=== PATIENT | female | born 1955 | race African-American/Black ===

== ENCOUNTER 2019-09-14 16:09 | Inpatient (IN) | payer MEDICARE ==
[~2019-09-14] VITALS: Ht 162.6 cm; Wt 69.9 kg
[2019-09-14] MEDS ORDERED: IV NORMAL SALINE 1000ML BAG 1,000 ML IV SCH ×2 (16:34→17:30)
[2019-09-14] MEDS ORDERED: ACETAMINOPHEN 650 MG SUPP.RECT. PR ONE (16:45)
[2019-09-14 16:48] LABS: BILIRUBIN,URINE NEGATIVE (NEG); CLARITY,URINE CLEAR; COLOR,URINE YELLOW; NITRITE,URINE POSITIVE (NEG); PH,URINE 5.5; PROTEIN,URINE 100 mg/dL (NEG-TRACE); UROBILINOGEN,URINE 0.2 mg/dL (0.2 mg/dL)
[2019-09-14 17:02] LABS: INFLUENZA A PATIENT NEGATIVE (NEGATIVE); INFLUENZA B PATIENT NEGATIVE (NEGATIVE)
[2019-09-14 17:03] LABS: BASO # 0.1 x10^3/uL (0.0-0.2); BASO % 1 % (0-3); EOS % 0 % (0-3); HEMATOCRIT 39.6 % (36.0-47.0); LYMPH # 2.1 x10^3/uL (1.0-4.8); LYMPH % 12 % (24-48); MEAN CORPUSCULAR HEMOGLOBIN 30 pg (25-35); MEAN CORPUSCULAR HGB CONC 33 g/dL (31-37); MEAN CORPUSCULAR VOLUME 92 fL (79-100); MONO # 1.1 x10^3/uL (0.0-1.1); MONO % 6 % (0-9); NEUT % 81 % (31-73); PLATELET COUNT 301 x10^3/uL (140-400); RED CELL DISTRIBUTION WIDTH 13.8 % (11.5-14.5); WHITE BLOOD COUNT 17.2 x10^3/uL (4.0-11.0)
[2019-09-14 17:07] LABS: PROTHROMBIN TIME PATIENT 14.9 SEC (11.7-14.0)
[2019-09-14 17:08] LABS: CREATININE 1.1 mg/dL (0.6-1.0); GFR 50.2; POTASSIUM 3.7 mmol/L (3.5-5.1)
[2019-09-14 17:11] LABS: BACTERIA,URINE MANY /HPF (0-FEW); RBC,URINE 0 /HPF (0-2); SQUAMOUS EPITHELIAL CELL,UR MOD /LPF
--- NOTE | 2019-09-14 17:13 | RAD ---
EXAM: AP View of the chest DATE: 09/14/2019 4:54 PM INDICATION: altered level of consciousness COMPARISON: No Prior FINDINGS: The heart is not enlarged. Mediastinal and hilar contours are normal. No focal parenchymal airspace opacity. Mild emphysematous changes are seen. No pleural effusion or pneumothorax. Cervical spine fusion hardware is partially profiled. IMPRESSION: 1. No radiographic evidence for acute cardiopulmonary process. Electronically signed by: Bertin Young MD (09/14/2019 5:10 PM) [id number]
[2019-09-14 17:15] LABS: ALBUMIN 4.1 g/dL (3.4-5.0); ALBUMIN/GLOBULIN RATIO 0.8 (1.0-1.7); MAGNESIUM 1.8 mg/dL (1.8-2.4); TOTAL BILIRUBIN 0.5 mg/dL (0.2-1.0); TOTAL PROTEIN 9.5 g/dL (6.4-8.2)
[2019-09-14] MEDS ORDERED: PIPERACILLIN/TAZOBACTAM 3.375 GM in IV NORMAL SALINE 50ML 50 ML IV ONE (17:30)
[2019-09-14] MEDS ORDERED: IOHEXOL 350 MG/ML 100 ML VIAL. IV ONE (17:30)
--- NOTE | 2019-09-14 17:53 | RAD ---
Exam: CT head INDICATION: Altered level of consciousness TECHNIQUE: Sequential axial images through the head were obtained without the administration of IV contrast. Comparisons: None FINDINGS: No focal parenchymal lesion or hemorrhage is identified. There is no midline shift or sulcal effacement. Hypodensity within the right parietal/temporal lobe, likely related to encephalomalacia. No acute vascular territory infarction is identified. Clarke-white distinction is preserved. The ventricular system is within normal limits without compression hydrocephalus. The basal cisterns are well maintained. Craniotomy changes are noted at the left parietal region. Mild mucosal thickening is noted within the maxillary sinuses bilaterally. No acute fractures. IMPRESSION: Craniotomy changes in the left parietal region with underlying hypodensity in the parietal and temporal lobe favored represent encephalomalacia. Superimposed subacute ischemia is difficult to exclude. Exposure: One or more of the following in the visualized dose reduction techniques were utilized for this examination: 1. Automated exposure control 2. Adjustment of the MA and/or KV according to patient size Use of iterative of reconstructive technique Electronically signed by: Valentina Orourke MD (09/14/2019 5:50 PM) [id number]
--- NOTE | 2019-09-14 18:07 | PHYS DOC ---
Past Medical History Past Medical History: Diabetes-Type II, GERD, High Cholesterol, Hypertension, Seizure, Other Additional Past Medical Histor: NEUROPATHY (CRISTA OROSCO MD) Past Surgical History: Other Additional Past Surgical Histo: BRAIN (CRISTA OROSCO MD) Smoking Status: Unknown if ever smoked Alcohol Use: None (CRISTA OROSCO MD) Adult General Chief Complaint Chief Complaint: FEVER HPI HPI Patient is a 64 year old female with history of hypertension, dyslipidemia, brain tumor surgery and taking Keppra for prevention of seizure, diabetes mellitus, GERD who presents to EMS with altered level of consciousness. Patient is from [place] visiting her daughter who has a new baby. Patient was seen at her normal condition around to 1400 yesterday and was iin the bed most of the time today and found unresponsive by her daughter prior to arrival to ER who called 911. Patient is able to tell her age but unable to talk well. Patient had temperature 102.2 at arrival to ER. (CRISTA OROSCO MD) Review of Systems Review of Systems Unable to obtain (CRISTA OROSCO MD) Current Medications Current Medications Current Medications Medications (Trade) Dose Ordered Sig/Blanca Start Time Stop Time Status Last Admin Dose Admin Acetaminophen (Tylenol Supp) 650 mg 1X ONCE 09/14/19 16:45 09/14/19 16:53 DC 09/14/19 17:05 650 MG Acetaminophen (Tylenol) 1,000 mg 1X ONCE 09/14/19 18:30 09/14/19 18:31 DC 09/14/19 18:51 1,000 MG Ceftriaxone Sodium (Rocephin) 2 gm 1X ONCE 09/14/19 19:00 09/14/19 19:03 DC Ibuprofen (Motrin) 800 mg 1X ONCE 09/14/19 18:30 09/14/19 18:31 DC 09/14/19 18:51 800 MG Iohexol (Omnipaque 350 Mg/ml) 60 ml 1X ONCE 09/14/19 17:30 09/14/19 17:31 DC 09/14/19 17:43 60 ML Piperacillin Sod/ Tazobactam Sod 3.375 gm/Sodium Chloride 50 ml @ 100 mls/hr 1X ONCE 09/14/19 17:30 09/14/19 17:59 DC 2/6/20 18:23 100 MLS/HR Sodium Chloride 1,000 ml @ 1,000 mls/hr 1X ONCE 09/14/19 18:15 09/14/19 19:14 DC 09/14/19 18:24 1,000 MLS/HR Vancomycin HCl 1.75 gm/Sodium Chloride 500 ml @ 250 mls/hr 1X ONCE 09/14/19 19:15 09/14/19 21:14 (PAOLA ARGUELLO MD) Allergies Allergies Allergies Coded Allergies Type Severity Reaction Last Updated Verified No Known Drug Allergies 09/14/19 No (PAOLA ARGUELLO MD) Physical Exam Physical Exam Constitutional: Well nourished, mild distress, non-toxic appearance, T-102.2. [] HENT: Normocephalic, atraumatic. Eyes: PERRLA, EOMI, conjunctiva normal, no discharge. [] Neck: Normal range of motion, no tenderness, supple, no stridor. [] Cardiovascular: Tachycardia, no murmur [] Lungs & Thorax: Bilateral breath sounds clear to auscultation [] Abdomen: Bowel sounds normal, soft, no tenderness, no masses, no pulsatile masses. [] Skin: Warm, dry, no erythema, no rash. [] Back: No tenderness, no CVA tenderness. [] Extremities: No tenderness, no cyanosis, no clubbing, ROM intact, no edema. [] Neurologic: Alert and oriented X 2, NIH-9 Psychologic: Unable to evaluate (CRISTA OROSCO MD) Current Patient Data Vital Signs Vital Signs Date Time Temp Pulse Resp B/P (MAP) Pulse Ox O2 Delivery O2 Flow Rate FiO2 09/14/19 18:18 102.5 102.5 09/14/19 18:03 102 20 116/68 (84) 94 Nasal Cannula 2.0 (PAOLA ARGUELLO MD) Lab Values Laboratory Tests Test 09/14/19 16:26 09/14/19 16:35 09/14/19 16:45 Glucose (Fingerstick) 150 mg/dL (70-99) H Influenza Type A Antigen Negative (NEGATIVE) Influenza Type B Antigen Negative (NEGATIVE) Urine Collection Type U cath Urine Color Yellow Urine Clarity Clear Urine pH 5.5 Urine Specific [place] 1.020 Urine Protein 100 mg/dL (NEG-TRACE) Urine Glucose (UA) Negative mg/dL (NEG) Urine Ketones (Stick) Negative mg/dL (NEG) Urine Blood Negative (NEG) Urine Nitrite Positive (NEG) Urine Bilirubin Negative (NEG) Urine Urobilinogen Dipstick 0.2 mg/dL (0.2 mg/dL) Urine Leukocyte Esterase Trace (NEG) Urine RBC 0 /HPF (0-2) Urine WBC 1-4 /HPF (0-4) Urine Squamous Epithelial Cells Mod /LPF Urine Bacteria Many /HPF (0-FEW) Urine Mucus Mod /LPF White Blood Count 17.2 x10^3/uL (4.0-11.0) H Red Blood Count 4.30 x10^6/uL (3.50-5.40) Hemoglobin 13.0 g/dL (12.0-15.5) Hematocrit 39.6 % (36.0-47.0) Mean Corpuscular Volume 92 fL (79-100) Mean Corpuscular Hemoglobin 30 pg (25-35) Mean Corpuscular Hemoglobin Concent 33 g/dL (31-37) Red Cell Distribution Width 13.8 % (11.5-14.5) Platelet Count 301 x10^3/uL (140-400) Neutrophils (%) (Auto) 81 % (31-73) H Lymphocytes (%) (Auto) 12 % (24-48) L Monocytes (%) (Auto) 6 % (0-9) Eosinophils (%) (Auto) 0 % (0-3) Basophils (%) (Auto) 1 % (0-3) Neutrophils # (Auto) 14.0 x10^3/uL (1.8-7.7) H Lymphocytes # (Auto) 2.1 x10^3/uL (1.0-4.8) Monocytes # (Auto) 1.1 x10^3/uL (0.0-1.1) Eosinophils # (Auto) 0.0 x10^3/uL (0.0-0.7) Basophils # (Auto) 0.1 x10^3/uL (0.0-0.2) Segmented Neutrophils % 69 % (35-66) H Band Neutrophils % 8 % (0-9) Lymphocytes % 16 % (24-48) L Monocytes % 7 % (0-10) Platelet Estimate Adequate (ADEQUATE) Prothrombin Time 14.9 SEC (11.7-14.0) H Prothrombin Time INR 1.2 (0.8-1.1) H Activated Partial Thromboplast Time 31 SEC (24-38) Sodium Level 139 mmol/L (136-145) Potassium Level 3.7 mmol/L (3.5-5.1) Chloride Level 96 mmol/L (98-107) L Carbon Dioxide Level 28 mmol/L (21-32) Anion Gap 15 (6-14) H Blood Urea Nitrogen 17 mg/dL (7-20) Creatinine 1.1 mg/dL (0.6-1.0) H Estimated GFR (Cockcroft-Gault) 50.2 BUN/Creatinine Ratio 15 (6-20) Glucose Level 153 mg/dL (70-99) H Lactic Acid Level 2.0 mmol/L (0.4-2.0) Calcium Level 9.0 mg/dL (8.5-10.1) Magnesium Level 1.8 mg/dL (1.8-2.4) Total Bilirubin 0.5 mg/dL (0.2-1.0) Aspartate Amino Transferase (AST) 71 U/L (15-37) H Alanine Aminotransferase (ALT) 80 U/L (14-59) H Alkaline Phosphatase 71 U/L (46-116) Ammonia < 10 mcmol/L (11-34) L Creatine Kinase 336 U/L (26-192) H Troponin I Quantitative < 0.017 ng/mL (0.000-0.055) UV-Xvq-F-Type Natriuretic Peptide 533 pg/mL (0-124) H Total Protein 9.5 g/dL (6.4-8.2) H Albumin 4.1 g/dL (3.4-5.0) Albumin/Globulin Ratio 0.8 (1.0-1.7) L Lipase 115 U/L (73-393) Laboratory Tests 09/14/19 16:45 Laboratory Tests 09/14/19 16:45 (PAOLA ARGUELLO MD) EKG EKG EKG interpreted by me. EKG at 1629 showed sinus tachycardia at rate of 107, left atrial abnormality, left flannery axis deviation, T-wave abnormality in lateral leads, no ST and T-wave elevation. (CRISTA OROSCO MD) Radiology/Procedures Radiology/Procedures [facility] [address] [place] [address] IMAGING REPORT Signed PATIENT: MARIA R SANTIAGO: [id number] : 1955 LOCATION: ER AGE: 64 SEX: F EXAM STATUS: PRE ER ORD. PHYSICIAN: CRISTA OROSCO MD REASON: altered level of consciousness PROCEDURE: PORTABLE CHEST 1V EXAM: AP View of the chest DATE: 09/14/2019 4:54 PM INDICATION: altered level of consciousness COMPARISON: No Prior FINDINGS: The heart is not enlarged. Mediastinal and hilar contours are normal. No focal parenchymal airspace opacity. Mild emphysematous changes are seen. No pleural effusion or pneumothorax. Cervical spine fusion hardware is partially profiled. IMPRESSION: 1. No radiographic evidence for acute cardiopulmonary process. Electronically signed by: Bertin Teixeira MD (09/14/2019 5:10 PM) [id number] DICTATED and SIGNED BY: BERTIN TEIXEIRA MD DATE: 09/14/19 1710 [facility] [address] [place] [address] IMAGING REPORT Signed PATIENT: MARIA R SANTIAGO: [id number] : 1955 LOCATION: ER AGE: 64 SEX: F EXAM STATUS: REG ER ORD. PHYSICIAN: CRISTA OROSCO MD REASON: altered level of consciousness PROCEDURE: CT HEAD WO CONTRAST Exam: CT head INDICATION: Altered level of consciousness TECHNIQUE: Sequential axial images through the head were obtained without the administration of IV contrast. Comparisons: None FINDINGS: No focal parenchymal lesion or hemorrhage is identified. There is no midline shift or sulcal effacement. Hypodensity within the right parietal/temporal lobe, likely related to encephalomalacia. No acute vascular territory infarction is identified. Clarke-white distinction is preserved. The ventricular system is within normal limits without compression hydrocephalus. The basal cisterns are well maintained. Craniotomy changes are noted at the left parietal region. Mild mucosal thickening is noted within the maxillary sinuses bilaterally. No acute fractures. IMPRESSION: Craniotomy changes in the left parietal region with underlying hypodensity in the parietal and temporal lobe favored represent encephalomalacia. Superimposed subacute ischemia is difficult to exclude. Exposure: One or more of the following in the visualized dose reduction techniques were utilized for this examination: 1. Automated exposure control 2. Adjustment of the MA and/or KV according to patient size Use of iterative of reconstructive technique Electronically signed by: Valentina Craig MD (09/14/2019 5:50 PM) [id number] DICTATED and SIGNED BY: VALENTINA CRAIG MD DATE: 09/14/19 175 (CRISTA OROSCO MD) Course & Med Decision Making Course & Med Decision Making Pertinent Labs and Imaging studies reviewed. (See chart for details) Evaluation of patient in ER showed 63-year-old female patient brought in because of altered level of consciousness. Patient had temperature of 102.2 at arrival to ER with indigestion skin of night with history of brain surgery. Patient last time seen 24 hours ago and was on the bed most the time. Blood culture was obtained and patient treated with IV fluid and antibiotic.Sign out given to at 1800 for further evaluation and final disposition. Discussed current findings and plan with patient and family, who acknowledge understanding and agreement. (CRISTA OROSCO MD) Course & Med Decision Making Lumbar Puncture by me: Patient consented, time out performed, sterilely prepped/draped, anesthetized locally. Anesthesia: 1% lidocaine locally Location: One interspace below the iliac crest Technique: needle with stylet for entry and removal of needle Results: unsuccessful x 2 attempts No post procedure complications, bleeding, numbness or weakness. Unsuccessful attempt x 2, patient will need LP tomorrow per IR if still warranted. Patient tolerated procedure well. Plan admit and further eval per Hospitalist. (PAOLA ARGUELLO MD) Dragon Disclaimer Dragon Disclaimer This electronic medical record was generated, in whole or in part, using a voice recognition dictation system. (CRISTA OROSCO MD) Departure Departure Impression: Primary Impression: Altered level of consciousness Additional Impressions: Fever SIRS (systemic inflammatory response syndrome) Disposition: ADMITTED INPATIENT Condition: STABLE Referrals: NO PCP (PCP) NIHSS Stroke Scale NIH Stroke Scale: NIH Stroke Scale Response (Comments) Value Level of Consciousness: 2 Requires stimulation 2 LOC Questions: 1 Answers one correctly 1 LOC Commands: 0 Performs both tasks 0 Best Gaze: 0 Normal 0 Visual: 0 No visual loss 0 Facial Palsy: 1 Minor paralysis 1 Motor - Left Arm 0 No drift 0 Motor - Right Arm 0 No drift 0 Motor - Left Leg 0 No drift 0 Motor: Right Leg 1 Drift but can hold 1 Limb Ataxia: 2 Two limbs 2 Sensory: 0 No loss 0 Best Language: 1 Mild to mod aphasia 1 Dysathria: 1 Mild to moderate 1 Extinction and Inattention: 0 Normal 0 Total 9 Critical Care Time Critical care time was 70 minutes exclusive of procedures. (CRISTA OROSCO MD) Problem Qualifiers Additional Impressions: Fever Fever type: unspecified Qualified Codes: R50.9 - Fever, unspecified CRISTA OROSCO MD Sep 14, 2019 18:07 PAOLA ARGUELLO MD Sep 14, 2019 19:21
[2019-09-14] MEDS ORDERED: IV NORMAL SALINE 1000ML BAG 1,000 ML IV ONE (18:15)
--- NOTE | 2019-09-14 18:23 | RAD ---
Please see report for accession number [id number] Electronically signed by: Valentina Orourke MD (09/14/2019 6:20 PM) [id number]
[2019-09-14] MEDS ORDERED: IBUPROFEN 400 MG TABLET. PO ONE (18:30)
[2019-09-14] MEDS ORDERED: ACETAMINOPHEN 500 MG TABLET PO ONE (18:30)
[2019-09-14 18:33] LABS: % BANDS 8 % (0-9); % LYMPHS 16 % (24-48); % MONOS 7 % (0-10); % SEGS 69 % (35-66); PLT ESTIMATE ADEQUATE (ADEQUATE)
[2019-09-14] MEDS ORDERED: VANCOMYCIN 1GM IVPB FOR OMNI 250 ML IV ONE (19:00)
[2019-09-14] MEDS ORDERED: cefTRIAXone IV Push 1 GM VIAL. IVP ONE (19:00)
[2019-09-14] MEDS ORDERED: VANCOMYCIN 1.75 GM in IV NORMAL SALINE 500ML BAG 500 ML IV ONE (19:15)
[2019-09-14] MEDS ORDERED: ACETAMINOPHEN 325 MG TABLET. PO PRN (19:30)
[2019-09-14] MEDS ORDERED: ONDANSETRON PF 4 MG/2 ML VIAL. IV PRN (19:30)
[2019-09-14] MEDS: MORPHINE SULFATE 2 MG/ML VIAL. IV PRN ×2 (19:50→23:31)
[2019-09-14 21:10] VITALS: BP 88/57
[2019-09-14] MEDS ORDERED: MAG HYDROX/ALUMINUM HYD/SIMETH 30 ML ORAL.SUSP PO PRN (22:30)
[2019-09-14] MEDS ORDERED: DEXTROSE 50% 25 GM / 50ML DISP.SYRIN. IV PRN (23:00)
[2019-09-14] MEDS ORDERED: IV DEXTROSE 5% 250 ML BAG. IV PRN (23:00)
[2019-09-14] MEDS ORDERED: cefTRIAXone IV Push 2 GM VIAL. IVP SCH (23:00)
--- NOTE | 2019-09-14 23:10 | PDOC ---
PROGRESS NOTES Vitals Vitals Vital Signs Date Time Temp Pulse Resp B/P (MAP) Pulse Ox O2 Delivery O2 Flow Rate FiO2 09/14/19 21:18 82 15 90/54 (66) 93 Nasal Cannula 2.0 09/14/19 21:12 98.3 98.3 Physical Exam Physical Exam GENERAL: confused, lethargic HEENT: Head normocephalic, atraumatic. NECK: Supple LUNGS: Clear to auscultation. HEART: RRR, S1, S2 present, pulses intact ABDOMEN: Soft, positive bowel sounds. EXTREMITIES: No cyanosis or edema. NEUROLOGIC: patient altered, normal pupils. does not follow commands PSYCHIATRIC: Normal affect, normal mood. SKIN: No ulceration. Assessment and Plan Problems: (1) AMS (altered mental status) (2) SIRS (systemic inflammatory response syndrome) Comment Review of Relevant I have reviewed the following items rhonda (where applicable) has been applied. Labs Laboratory Tests Test 09/14/19 16:26 09/14/19 16:35 09/14/19 16:45 09/14/19 19:50 Glucose (Fingerstick) 150 mg/dL (70-99) Influenza Type A Antigen Negative (NEGATIVE) Influenza Type B Antigen Negative (NEGATIVE) Urine Collection Type U cath Urine Color Yellow Urine Clarity Clear Urine pH 5.5 Urine Specific [place] 1.020 Urine Protein 100 mg/dL (NEG-TRACE) Urine Glucose (UA) Negative mg/dL (NEG) Urine Ketones (Stick) Negative mg/dL (NEG) Urine Blood Negative (NEG) Urine Nitrite Positive (NEG) Urine Bilirubin Negative (NEG) Urine Urobilinogen Dipstick 0.2 mg/dL (0.2 mg/dL) Urine Leukocyte Esterase Trace (NEG) Urine RBC 0 /HPF (0-2) Urine WBC 1-4 /HPF (0-4) Urine Squamous Epithelial Cells Mod /LPF Urine Bacteria Many /HPF (0-FEW) Urine Mucus Mod /LPF White Blood Count 17.2 x10^3/uL (4.0-11.0) Red Blood Count 4.30 x10^6/uL (3.50-5.40) Hemoglobin 13.0 g/dL (12.0-15.5) Hematocrit 39.6 % (36.0-47.0) Mean Corpuscular Volume 92 fL (79-100) Mean Corpuscular Hemoglobin 30 pg (25-35) Mean Corpuscular Hemoglobin Concent 33 g/dL (31-37) Red Cell Distribution Width 13.8 % (11.5-14.5) Platelet Count 301 x10^3/uL (140-400) Neutrophils (%) (Auto) 81 % (31-73) Lymphocytes (%) (Auto) 12 % (24-48) Monocytes (%) (Auto) 6 % (0-9) Eosinophils (%) (Auto) 0 % (0-3) Basophils (%) (Auto) 1 % (0-3) Neutrophils # (Auto) 14.0 x10^3/uL (1.8-7.7) Lymphocytes # (Auto) 2.1 x10^3/uL (1.0-4.8) Monocytes # (Auto) 1.1 x10^3/uL (0.0-1.1) Eosinophils # (Auto) 0.0 x10^3/uL (0.0-0.7) Basophils # (Auto) 0.1 x10^3/uL (0.0-0.2) Segmented Neutrophils % 69 % (35-66) Band Neutrophils % 8 % (0-9) Lymphocytes % 16 % (24-48) Monocytes % 7 % (0-10) Platelet Estimate Adequate (ADEQUATE) Prothrombin Time 14.9 SEC (11.7-14.0) Prothromb Time International Ratio 1.2 (0.8-1.1) Activated Partial Thromboplast Time 31 SEC (24-38) Sodium Level 139 mmol/L (136-145) Potassium Level 3.7 mmol/L (3.5-5.1) Chloride Level 96 mmol/L (98-107) Carbon Dioxide Level 28 mmol/L (21-32) Anion Gap 15 (6-14) Blood Urea Nitrogen 17 mg/dL (7-20) Creatinine 1.1 mg/dL (0.6-1.0) Estimated GFR (Cockcroft-Gault) 50.2 BUN/Creatinine Ratio 15 (6-20) Glucose Level 153 mg/dL (70-99) Lactic Acid Level 2.0 mmol/L (0.4-2.0) 1.3 mmol/L (0.4-2.0) Calcium Level 9.0 mg/dL (8.5-10.1) Magnesium Level 1.8 mg/dL (1.8-2.4) Total Bilirubin 0.5 mg/dL (0.2-1.0) Aspartate Amino Transf (AST/SGOT) 71 U/L (15-37) Alanine Aminotransferase (ALT/SGPT) 80 U/L (14-59) Alkaline Phosphatase 71 U/L (46-116) Ammonia < 10 mcmol/L (11-34) Creatine Kinase 336 U/L (26-192) Troponin I Quantitative < 0.017 ng/mL (0.000-0.055) RO-Sko-K-Type Natriuretic Peptide 533 pg/mL (0-124) Total Protein 9.5 g/dL (6.4-8.2) Albumin 4.1 g/dL (3.4-5.0) Albumin/Globulin Ratio 0.8 (1.0-1.7) Lipase 115 U/L (73-393) Laboratory Tests Test 09/14/19 16:26 09/14/19 16:35 09/14/19 16:45 09/14/19 19:50 Glucose (Fingerstick) 150 mg/dL (70-99) Influenza Type A Antigen Negative (NEGATIVE) Influenza Type B Antigen Negative (NEGATIVE) Urine Collection Type U cath Urine Color Yellow Urine Clarity Clear Urine pH 5.5 Urine Specific [place] 1.020 Urine Protein 100 mg/dL (NEG-TRACE) Urine Glucose (UA) Negative mg/dL (NEG) Urine Ketones (Stick) Negative mg/dL (NEG) Urine Blood Negative (NEG) Urine Nitrite Positive (NEG) Urine Bilirubin Negative (NEG) Urine Urobilinogen Dipstick 0.2 mg/dL (0.2 mg/dL) Urine Leukocyte Esterase Trace (NEG) Urine RBC 0 /HPF (0-2) Urine WBC 1-4 /HPF (0-4) Urine Squamous Epithelial Cells Mod /LPF Urine Bacteria Many /HPF (0-FEW) Urine Mucus Mod /LPF White Blood Count 17.2 x10^3/uL (4.0-11.0) Red Blood Count 4.30 x10^6/uL (3.50-5.40) Hemoglobin 13.0 g/dL (12.0-15.5) Hematocrit 39.6 % (36.0-47.0) Mean Corpuscular Volume 92 fL (79-100) Mean Corpuscular Hemoglobin 30 pg (25-35) Mean Corpuscular Hemoglobin Concent 33 g/dL (31-37) Red Cell Distribution Width 13.8 % (11.5-14.5) Platelet Count 301 x10^3/uL (140-400) Neutrophils (%) (Auto) 81 % (31-73) Lymphocytes (%) (Auto) 12 % (24-48) Monocytes (%) (Auto) 6 % (0-9) Eosinophils (%) (Auto) 0 % (0-3) Basophils (%) (Auto) 1 % (0-3) Neutrophils # (Auto) 14.0 x10^3/uL (1.8-7.7) Lymphocytes # (Auto) 2.1 x10^3/uL (1.0-4.8) Monocytes # (Auto) 1.1 x10^3/uL (0.0-1.1) Eosinophils # (Auto) 0.0 x10^3/uL (0.0-0.7) Basophils # (Auto) 0.1 x10^3/uL (0.0-0.2) Segmented Neutrophils % 69 % (35-66) Band Neutrophils % 8 % (0-9) Lymphocytes % 16 % (24-48) Monocytes % 7 % (0-10) Platelet Estimate Adequate (ADEQUATE) Prothrombin Time 14.9 SEC (11.7-14.0) Prothromb Time International Ratio 1.2 (0.8-1.1) Activated Partial Thromboplast Time 31 SEC (24-38) Sodium Level 139 mmol/L (136-145) Potassium Level 3.7 mmol/L (3.5-5.1) Chloride Level 96 mmol/L (98-107) Carbon Dioxide Level 28 mmol/L (21-32) Anion Gap 15 (6-14) Blood Urea Nitrogen 17 mg/dL (7-20) Creatinine 1.1 mg/dL (0.6-1.0) Estimated GFR (Cockcroft-Gault) 50.2 BUN/Creatinine Ratio 15 (6-20) Glucose Level 153 mg/dL (70-99) Lactic Acid Level 2.0 mmol/L (0.4-2.0) 1.3 mmol/L (0.4-2.0) Calcium Level 9.0 mg/dL (8.5-10.1) Magnesium Level 1.8 mg/dL (1.8-2.4) Total Bilirubin 0.5 mg/dL (0.2-1.0) Aspartate Amino Transf (AST/SGOT) 71 U/L (15-37) Alanine Aminotransferase (ALT/SGPT) 80 U/L (14-59) Alkaline Phosphatase 71 U/L (46-116) Ammonia < 10 mcmol/L (11-34) Creatine Kinase 336 U/L (26-192) Troponin I Quantitative < 0.017 ng/mL (0.000-0.055) SJ-Wwn-U-Type Natriuretic Peptide 533 pg/mL (0-124) Total Protein 9.5 g/dL (6.4-8.2) Albumin 4.1 g/dL (3.4-5.0) Albumin/Globulin Ratio 0.8 (1.0-1.7) Lipase 115 U/L (73-393) Medications Current Medications Sodium Chloride 1,000 ml @ 1,000 mls/hr Q1H IV Last administered on 09/14/19at 17:05; Start 09/14/19 at 16:34; Stop 09/14/19 at 17:33; Status DC Acetaminophen (Tylenol Supp) 650 mg 1X ONCE SC Last administered on 09/14/19at 17:05; Start 09/14/19 at 16:45; Stop 09/14/19 at 16:53; Status DC Sodium Chloride 1,000 ml @ 2,000 mls/hr Q1H IV ; Start 09/14/19 at 17:30; Stop 09/14/19 at 18:13; Status DC Piperacillin Sod/ Tazobactam Sod 3.375 gm/Sodium Chloride 50 ml @ 100 mls/hr 1X ONCE IV Last administered on 09/14/19at 18:23; Start 09/14/19 at 17:30; Stop 09/14/19 at 17:59; Status DC Iohexol (Omnipaque 350 Mg/ml) 60 ml 1X ONCE IV Last administered on 09/14/19at 17:43; Start 09/14/19 at 17:30; Stop 09/14/19 at 17:31; Status DC Sodium Chloride 1,000 ml @ 1,000 mls/hr 1X ONCE IV Last administered on 09/14/19 18:24; Start 09/14/19 at 18:15; Stop 09/14/19 at 19:14; Status DC Acetaminophen (Tylenol) 1,000 mg 1X ONCE PO Last administered on 09/14/19 18:51; Start 09/14/19 at 18:30; Stop 09/14/19 at 18:31; Status DC Ibuprofen (Motrin) 800 mg 1X ONCE PO Last administered on 09/14/19 18:51; Start 09/14/19 at 18:30; Stop 09/14/19 at 18:31; Status DC Ceftriaxone Sodium (Rocephin) 2 gm 1X ONCE IVP Last administered on 09/14/19 19:33; Start 09/14/19 at 19:00; Stop 09/14/19 at 19:03; Status DC Vancomycin HCl 250 ml @ 250 mls/hr 1X ONCE IV ; Start 09/14/19 at 19:00; Stop 09/14/19 at 19:59; Status UNV Vancomycin HCl 1.75 gm/Sodium Chloride 500 ml @ 250 mls/hr 1X ONCE IV Last administered on 09/14/19at 19:41; Start 09/14/19 at 19:15; Stop 09/14/19 at 21:14; Status DC Ondansetron HCl (Zofran) 4 mg PRN Q8HRS PRN IV NAUSEA/VOMITING Last administered on 09/14/19at 19:49; Start 09/14/19 at 19:30; Stop 09/15/19 at 19:29 Morphine Sulfate (Morphine Sulfate) 2 mg PRN Q2HR PRN IV PAIN Last administered on 09/14/19at 19:50; Start 09/14/19 at 19:30; Stop 09/15/19 at 19:29 Acetaminophen (Tylenol) 650 mg PRN Q4HRS PRN PO FEVER; Start 09/14/19 at 19:30; Stop 09/15/19 at 19:29 Vitals/I & O Vital Sign - Last 24 Hours 09/14/19 09/14/19 09/14/19 09/14/19 16:09 16:44 16:48 17:18 Temp 102.2 102.2 Pulse 111 106 106 102 Resp 22 20 18 23 B/P (MAP) 134/83 (100) 121/78 (92) 13/75 (55) 124/80 (95) Pulse Ox 93 94 93 97 O2 Delivery Nasal Cannula Nasal Cannula Nasal Cannula Nasal Cannula O2 Flow Rate 2.0 2.0 2.0 2.0 09/14/19 09/14/19 09/14/19 09/14/19 17:45 17:48 18:03 18:18 Pulse 108 106 102 108 Resp 30 23 20 24 B/P (MAP) 123/73 (90) 112/65 (81) 116/68 (84) 117/72 (87) Pulse Ox 95 97 94 96 O2 Delivery Nasal Cannula Nasal Cannula Nasal Cannula Nasal Cannula O2 Flow Rate 2.0 2.0 2.0 2.0 09/14/19 09/14/19 09/14/19 09/14/19 18:18 18:38 18:48 19:03 Temp 102.5 102.5 Pulse 102 102 100 Resp 25 18 16 B/P (MAP) 124/85 (98) 110/69 (83) 116/77 (90) Pulse Ox 97 95 98 O2 Delivery Nasal Cannula Nasal Cannula Nasal Cannula O2 Flow Rate 2.0 2.0 2.0 09/14/19 09/14/19 09/14/19 09/14/19 19:18 19:33 19:48 19:50 Pulse 100 92 92 Resp 20 20 16 15 B/P (MAP) 120/74 (89) 106/65 (79) 110/66 (81) Pulse Ox 96 95 94 94 O2 Delivery Nasal Cannula Nasal Cannula Nasal Cannula Nasal Cannula O2 Flow Rate 2.0 2.0 2.0 2.0 09/14/19 09/14/19 09/14/19 09/14/19 20:18 20:48 21:10 21:12 Temp 98.3 98.3 Pulse 84 84 84 Resp 15 15 B/P (MAP) 94/55 (68) 88/59 (69) 86/59 (68) Pulse Ox 92 95 95 O2 Delivery Nasal Cannula Nasal Cannula Nasal Cannula O2 Flow Rate 2.0 2.0 2.0 09/14/19 09/14/19 21:15 21:18 Pulse 84 82 Resp 18 15 B/P (MAP) 87/56 (66) 90/54 (66) Pulse Ox 95 93 O2 Delivery Nasal Cannula Nasal Cannula O2 Flow Rate 2.0 2.0 BRENDA BARRETO MD Sep 14, 2019 23:10
--- NOTE | 2019-09-14 23:13 | PDOC1 ---
History and Physical Date of Admission Date of Admission DATE: 09/14/19 TIME: 23:12 Identification/Chief Complaint Chief Complaint AMS Source Source: Caregiver, Chart review, Patient History of Present Illness History of Present Illness 64 year old BF with hx of HTN, HLD, GERD, DM, prior brain tumor sx on keppra for seizure ppx who is from [facility] visiting her daughter and baby here in [place]. patient seen last in her normal state around 2 pm yesterday and found by her daughter this AM confused since this AM per son who was at the bedside providing as much history as he can. he also notes that patient was in bed most of the day yesterday. noted temp of 102.2 upon arrival. patient appears very lethargic and answers questions minimally. no reported cough, dysuria, chest pain, sob, nausea vomiting diarrhea. no reported illicit drug use. has had adequate PO intake per son. patient usually more alert and awake and per son, this is not her normal self. no prior hx of stroke. no reported seizure activity per family. takes all medications as prescribed. LP attempted twice in ED and unsuccessful. in light of AMS and fever, VANC and Rocephin started empirically. blood and urine cultures ordered. WBC noted to be 17k. CT head negative Past Medical History Past Medical History HTN, HLD, GERD, DM, prior brain tumor sx on keppra for seizure ppx Past Surgical History Past Surgical History brain tumor s/p resection Family History Family History reviewed and non-contributory Social History Smoke: No ALCOHOL: none Drugs: None Current Problem List Problem List Problems Medical Problems: (1) Altered level of consciousness Status: Acute (2) Fever Status: Acute (3) SIRS (systemic inflammatory response syndrome) Status: Acute Current Medications Current Medications Current Medications Sodium Chloride 1,000 ml @ 1,000 mls/hr Q1H IV Last administered on 09/14/19at 17:05; Start 09/14/19 at 16:34; Stop 09/14/19 at 17:33; Status DC Acetaminophen (Tylenol Supp) 650 mg 1X ONCE LA Last administered on 09/14/19at 17:05; Start 09/14/19 at 16:45; Stop 09/14/19 at 16:53; Status DC Sodium Chloride 1,000 ml @ 2,000 mls/hr Q1H IV ; Start 09/14/19 at 17:30; Stop 09/14/19 at 18:13; Status DC Piperacillin Sod/ Tazobactam Sod 3.375 gm/Sodium Chloride 50 ml @ 100 mls/hr 1X ONCE IV Last administered on 09/14/19at 18:23; Start 09/14/19 at 17:30; Stop 09/14/19 at 17:59; Status DC Iohexol (Omnipaque 350 Mg/ml) 60 ml 1X ONCE IV Last administered on 09/14/19at 17:43; Start 09/14/19 at 17:30; Stop 09/14/19 at 17:31; Status DC Sodium Chloride 1,000 ml @ 1,000 mls/hr 1X ONCE IV Last administered on 09/14/19at 18:24; Start 09/14/19 at 18:15; Stop 09/14/19 at 19:14; Status DC Acetaminophen (Tylenol) 1,000 mg 1X ONCE PO Last administered on 09/14/19at 18:51; Start 09/14/19 at 18:30; Stop 09/14/19 at 18:31; Status DC Ibuprofen (Motrin) 800 mg 1X ONCE PO Last administered on 09/14/19at 18:51; Start 09/14/19 at 18:30; Stop 09/14/19 at 18:31; Status DC Ceftriaxone Sodium (Rocephin) 2 gm 1X ONCE IVP Last administered on 09/14/19at 19:33; Start 09/14/19 at 19:00; Stop 09/14/19 at 19:03; Status DC Vancomycin HCl 250 ml @ 250 mls/hr 1X ONCE IV ; Start 09/14/19 at 19:00; Stop 09/14/19 at 19:59; Status UNV Vancomycin HCl 1.75 gm/Sodium Chloride 500 ml @ 250 mls/hr 1X ONCE IV Last administered on 09/14/19at 19:41; Start 09/14/19 at 19:15; Stop 09/14/19 at 21:14; Status DC Ondansetron HCl (Zofran) 4 mg PRN Q8HRS PRN IV NAUSEA/VOMITING Last administered on 09/14/19at 19:49; Start 09/14/19 at 19:30; Stop 09/15/19 at 19:29 Morphine Sulfate (Morphine Sulfate) 2 mg PRN Q2HR PRN IV PAIN Last administered on 09/14/19at 19:50; Start 09/14/19 at 19:30; Stop 09/15/19 at 19:29 Acetaminophen (Tylenol) 650 mg PRN Q4HRS PRN PO FEVER; Start 09/14/19 at 19:30; Stop 09/15/19 at 19:29 Allergies Allergies: Coded Allergies: No Known Drug Allergies (Unverified , 09/14/19) ROS Review of System reviewed and non-contributory Physical Exam Physical Exam GENERAL: confused, lethargic HEENT: Head normocephalic, atraumatic. NECK: Supple LUNGS: Clear to auscultation. HEART: RRR, S1, S2 present, pulses intact ABDOMEN: Soft, positive bowel sounds. EXTREMITIES: No cyanosis or edema. NEUROLOGIC: patient altered, normal pupils. does not follow commands PSYCHIATRIC: Normal affect, normal mood. SKIN: No ulceration. Vitals Vitals Vital Signs Date Time Temp Pulse Resp B/P (MAP) Pulse Ox O2 Delivery O2 Flow Rate FiO2 09/14/19 21:18 82 15 90/54 (66) 93 Nasal Cannula 2.0 09/14/19 21:12 98.3 98.3 Labs Labs Laboratory Tests Test 09/14/19 16:26 09/14/19 16:35 09/14/19 16:45 09/14/19 19:50 Glucose (Fingerstick) 150 mg/dL (70-99) Influenza Type A Antigen Negative (NEGATIVE) Influenza Type B Antigen Negative (NEGATIVE) Urine Collection Type U cath Urine Color Yellow Urine Clarity Clear Urine pH 5.5 Urine Specific [place] 1.020 Urine Protein 100 mg/dL (NEG-TRACE) Urine Glucose (UA) Negative mg/dL (NEG) Urine Ketones (Stick) Negative mg/dL (NEG) Urine Blood Negative (NEG) Urine Nitrite Positive (NEG) Urine Bilirubin Negative (NEG) Urine Urobilinogen Dipstick 0.2 mg/dL (0.2 mg/dL) Urine Leukocyte Esterase Trace (NEG) Urine RBC 0 /HPF (0-2) Urine WBC 1-4 /HPF (0-4) Urine Squamous Epithelial Cells Mod /LPF Urine Bacteria Many /HPF (0-FEW) Urine Mucus Mod /LPF White Blood Count 17.2 x10^3/uL (4.0-11.0) Red Blood Count 4.30 x10^6/uL (3.50-5.40) Hemoglobin 13.0 g/dL (12.0-15.5) Hematocrit 39.6 % (36.0-47.0) Mean Corpuscular Volume 92 fL (79-100) Mean Corpuscular Hemoglobin 30 pg (25-35) Mean Corpuscular Hemoglobin Concent 33 g/dL (31-37) Red Cell Distribution Width 13.8 % (11.5-14.5) Platelet Count 301 x10^3/uL (140-400) Neutrophils (%) (Auto) 81 % (31-73) Lymphocytes (%) (Auto) 12 % (24-48) Monocytes (%) (Auto) 6 % (0-9) Eosinophils (%) (Auto) 0 % (0-3) Basophils (%) (Auto) 1 % (0-3) Neutrophils # (Auto) 14.0 x10^3/uL (1.8-7.7) Lymphocytes # (Auto) 2.1 x10^3/uL (1.0-4.8) Monocytes # (Auto) 1.1 x10^3/uL (0.0-1.1) Eosinophils # (Auto) 0.0 x10^3/uL (0.0-0.7) Basophils # (Auto) 0.1 x10^3/uL (0.0-0.2) Segmented Neutrophils % 69 % (35-66) Band Neutrophils % 8 % (0-9) Lymphocytes % 16 % (24-48) Monocytes % 7 % (0-10) Platelet Estimate Adequate (ADEQUATE) Prothrombin Time 14.9 SEC (11.7-14.0) Prothromb Time International Ratio 1.2 (0.8-1.1) Activated Partial Thromboplast Time 31 SEC (24-38) Sodium Level 139 mmol/L (136-145) Potassium Level 3.7 mmol/L (3.5-5.1) Chloride Level 96 mmol/L (98-107) Carbon Dioxide Level 28 mmol/L (21-32) Anion Gap 15 (6-14) Blood Urea Nitrogen 17 mg/dL (7-20) Creatinine 1.1 mg/dL (0.6-1.0) Estimated GFR (Cockcroft-Gault) 50.2 BUN/Creatinine Ratio 15 (6-20) Glucose Level 153 mg/dL (70-99) Lactic Acid Level 2.0 mmol/L (0.4-2.0) 1.3 mmol/L (0.4-2.0) Calcium Level 9.0 mg/dL (8.5-10.1) Magnesium Level 1.8 mg/dL (1.8-2.4) Total Bilirubin 0.5 mg/dL (0.2-1.0) Aspartate Amino Transf (AST/SGOT) 71 U/L (15-37) Alanine Aminotransferase (ALT/SGPT) 80 U/L (14-59) Alkaline Phosphatase 71 U/L (46-116) Ammonia < 10 mcmol/L (11-34) Creatine Kinase 336 U/L (26-192) Troponin I Quantitative < 0.017 ng/mL (0.000-0.055) AB-Rms-I-Type Natriuretic Peptide 533 pg/mL (0-124) Total Protein 9.5 g/dL (6.4-8.2) Albumin 4.1 g/dL (3.4-5.0) Albumin/Globulin Ratio 0.8 (1.0-1.7) Lipase 115 U/L (73-393) Laboratory Tests Test 09/14/19 16:26 09/14/19 16:35 09/14/19 16:45 09/14/19 19:50 Glucose (Fingerstick) 150 mg/dL (70-99) Influenza Type A Antigen Negative (NEGATIVE) Influenza Type B Antigen Negative (NEGATIVE) Urine Collection Type U cath Urine Color Yellow Urine Clarity Clear Urine pH 5.5 Urine Specific [place] 1.020 Urine Protein 100 mg/dL (NEG-TRACE) Urine Glucose (UA) Negative mg/dL (NEG) Urine Ketones (Stick) Negative mg/dL (NEG) Urine Blood Negative (NEG) Urine Nitrite Positive (NEG) Urine Bilirubin Negative (NEG) Urine Urobilinogen Dipstick 0.2 mg/dL (0.2 mg/dL) Urine Leukocyte Esterase Trace (NEG) Urine RBC 0 /HPF (0-2) Urine WBC 1-4 /HPF (0-4) Urine Squamous Epithelial Cells Mod /LPF Urine Bacteria Many /HPF (0-FEW) Urine Mucus Mod /LPF White Blood Count 17.2 x10^3/uL (4.0-11.0) Red Blood Count 4.30 x10^6/uL (3.50-5.40) Hemoglobin 13.0 g/dL (12.0-15.5) Hematocrit 39.6 % (36.0-47.0) Mean Corpuscular Volume 92 fL (79-100) Mean Corpuscular Hemoglobin 30 pg (25-35) Mean Corpuscular Hemoglobin Concent 33 g/dL (31-37) Red Cell Distribution Width 13.8 % (11.5-14.5) Platelet Count 301 x10^3/uL (140-400) Neutrophils (%) (Auto) 81 % (31-73) Lymphocytes (%) (Auto) 12 % (24-48) Monocytes (%) (Auto) 6 % (0-9) Eosinophils (%) (Auto) 0 % (0-3) Basophils (%) (Auto) 1 % (0-3) Neutrophils # (Auto) 14.0 x10^3/uL (1.8-7.7) Lymphocytes # (Auto) 2.1 x10^3/uL (1.0-4.8) Monocytes # (Auto) 1.1 x10^3/uL (0.0-1.1) Eosinophils # (Auto) 0.0 x10^3/uL (0.0-0.7) Basophils # (Auto) 0.1 x10^3/uL (0.0-0.2) Segmented Neutrophils % 69 % (35-66) Band Neutrophils % 8 % (0-9) Lymphocytes % 16 % (24-48) Monocytes % 7 % (0-10) Platelet Estimate Adequate (ADEQUATE) Prothrombin Time 14.9 SEC (11.7-14.0) Prothromb Time International Ratio 1.2 (0.8-1.1) Activated Partial Thromboplast Time 31 SEC (24-38) Sodium Level 139 mmol/L (136-145) Potassium Level 3.7 mmol/L (3.5-5.1) Chloride Level 96 mmol/L (98-107) Carbon Dioxide Level 28 mmol/L (21-32) Anion Gap 15 (6-14) Blood Urea Nitrogen 17 mg/dL (7-20) Creatinine 1.1 mg/dL (0.6-1.0) Estimated GFR (Cockcroft-Gault) 50.2 BUN/Creatinine Ratio 15 (6-20) Glucose Level 153 mg/dL (70-99) Lactic Acid Level 2.0 mmol/L (0.4-2.0) 1.3 mmol/L (0.4-2.0) Calcium Level 9.0 mg/dL (8.5-10.1) Magnesium Level 1.8 mg/dL (1.8-2.4) Total Bilirubin 0.5 mg/dL (0.2-1.0) Aspartate Amino Transf (AST/SGOT) 71 U/L (15-37) Alanine Aminotransferase (ALT/SGPT) 80 U/L (14-59) Alkaline Phosphatase 71 U/L (46-116) Ammonia < 10 mcmol/L (11-34) Creatine Kinase 336 U/L (26-192) Troponin I Quantitative < 0.017 ng/mL (0.000-0.055) OP-Fox-U-Type Natriuretic Peptide 533 pg/mL (0-124) Total Protein 9.5 g/dL (6.4-8.2) Albumin 4.1 g/dL (3.4-5.0) Albumin/Globulin Ratio 0.8 (1.0-1.7) Lipase 115 U/L (73-393) VTE Prophylaxis Ordered VTE Prophylaxis Devices: Yes VTE Pharmacological Prophylaxi: No Assessment/Plan Assessment/Plan ASSESSMENT Sepsis, POA Acute Septic Encephalopathy Probable UTI Leukocytosis Hx of Brain Tumor on Seizure ppx HTN, now borderline hypotensive DM Hypothyroidism GERD PLAN admit to tele bed neuro checks q 4 hrs LP attempted X 2 unsuccessfully Radiology consult for LP (order placed) CSF labs ordered continue emperic Rocephin and Vanc (meningial doses) until LP obtained check B12, RPR, TSH, ESR, CRP hold any sedation MED REC NOT COMPLETED YET. need to restart patients AEDs once confirmed. IVF fluids for now NPO status till cleared by speech neuro consulted if LP negative and still altered, will consider MRI brain full code scds for dvt ppx (hold heparin since LP in AM) plan of care updated to son >2 MN LOS due to acute encephalopathy, need for IV abx, further procedures (LP) BRENDA BARRETO MD Sep 14, 2019 23:13
[2019-09-14] MEDS: VANCOMYCIN PER PHARMACY MC PRN (23:19)
--- NOTE | 2019-09-14 23:21 | NUR ---
Pharmacy Vancomycin Dosing Note S:Consulted to monitor and dose vancomycin started 09/14/19. O:RICKEY SANTIAGO is a 64 year old F with SIRS/FEVER . Height: 5 feet, 4 inches Weight: 68.1 kg [place] Body Weight: 54.70 Adjusted Body Weight: 60.06 Dosing Weight: Actual Other Antibiotics: ZOSYN 3.375GM IV X1 IN ER(09/14) CEFTRIAXONE 2GM IV Q24H LABS: Last BUN: 17 Last Creatinine: 1.1 Creatinine Clearance: 49.6 mL/min Last WBC: 17.2 Last Procalcitonin: Tmax (past 24 hours): Microbiology: I/O: Drug Levels: Last level: on at Last dose given at Vancomycin Dosing: Loading Dose: 1750 mg x1 09/14/191940 Dosing Weight: Actual Target Trough: 15-20 A: Based on: Actual Wt and CrCl P: 1. 09/15/191999 Vancomycin 1000 mg IV q24h 2. Follow up Trough level on 09/16/19 at 1930 3. Pharmacy will continue to monitor, follow and adjust therapy as needed. BLAYNE HUSSEIN RPH, 09/14/19 2321 Signed: 09/14/19 at 2322 by BLAYNE HUSSEIN RPH PHA
[2019-09-14] MEDS: IV NORMAL SALINE 1000ML BAG 1,000 ML IV SCH (23:30)
[2019-09-14 23:50] VITALS: BP 92/60
[2019-09-15 03:45] VITALS: BP 94/68
[2019-09-15] MEDS: MORPHINE SULFATE 2 MG/ML VIAL. IV PRN ×5 (04:37→21:13)
--- NOTE | 2019-09-15 05:59 | EKG ---
[facility] [address] [place] [address] Test Date: 2019-09-14 Test Time: 16:29:53 Pat Name: RICKEY SANTIAGO Department: Room: Gender: F [employer]: : [id number] Requested By: CRISTA OROSCO Order Number: [id number] Reading MD: Measurements Intervals [place] Rate: 106 P: -46 VT: 108 QRS: -12 QRSD: 84 T: 69 QT: 382 QTc: 509 Interpretive Statements SINUS TACHYCARDIA LEFT ATRIAL ABNORMALITY LEFTWARD AXIS T ABNORMALITY IN HIGH LATERAL LEADS NON SPECIFIC ST DEPRESSION ABNORMAL ECG No previous ECG available for comparison
[2019-09-15 07:00] VITALS: BP 101/62
[2019-09-15] MEDS: INSULIN LISPRO 300 UNITS/3 ML VIAL. SQ SCH ×3 (08:00→17:00)
[2019-09-15 08:10] LABS: BASO % 0 % (0-3); EOS % 0 % (0-3); HEMATOCRIT 31.1 % (36.0-47.0); HEMOGLOBIN 10.3 g/dL (12.0-15.5); LYMPH # 2.3 x10^3/uL (1.0-4.8); LYMPH % 19 % (24-48); MEAN CORPUSCULAR HEMOGLOBIN 31 pg (25-35); MEAN CORPUSCULAR HGB CONC 33 g/dL (31-37); MEAN CORPUSCULAR VOLUME 93 fL (79-100); MONO # 1.1 x10^3/uL (0.0-1.1); MONO % 9 % (0-9); NEUT # 9.1 x10^3/uL (1.8-7.7); NEUT % 72 % (31-73); PLATELET COUNT 213 x10^3/uL (140-400); RED BLOOD COUNT 3.35 x10^6/uL (3.50-5.40); RED CELL DISTRIBUTION WIDTH 13.8 % (11.5-14.5); WHITE BLOOD COUNT 12.6 x10^3/uL (4.0-11.0)
--- NOTE | 2019-09-15 08:12 | PDOC ---
PROGRESS NOTES Chief Complaint Chief Complaint A/P: Acute toxic and metabolic encephalopathy Sepsis, POA Presumptive UTI Hx of Brain Tumor on Seizure ppx HTN DM Hypothyroidism GERD PLAN admit to tele bed neuro checks q 4 hrs continue empiric Rocephin and Vanc check B12, RPR, TSH, ESR, CRP Home medicines reconciled IVF fluids for now NPO status till cleared by speech neuro consulted if LP negative and still altered, will consider MRI brain full code scds for dvt ppx (hold heparin since LP in AM) plan of care updated to son History of Present Illness History of Present Illness 64 year old BF with hx of HTN, HLD, GERD, DM, prior brain tumor sx on keppra for seizur ppx who is from [facility] visiting her daughter and baby here in [place]. patient seen last in her normal state around 2 pm yesterday and found by her daughter this AM confused since this AM per son who was at the bedside providing as much history as he can. he also notes that patient was in bed most of the day yesterday. noted temp of 102.2 upon arrival. patient appears very lethargic and answers questions minimally. no reported cough, dysuria, chest pain, sob, nausea vomiting diarrhea. no reported illicit drug use. has had adequate PO intake per son. patient usually more alert and awake and per son, this is not her normal self. no prior hx of stroke. no reported seizure activity per family. takes all medications as prescribed. LP attempted twice in ED and unsuccessful. in light of AMS and fever, VANC and Rocephin started empirically. blood and urine cultures ordered. WBC noted to be 17k. CT head negative Vitals Vitals Vital Signs Date Time Temp Pulse Resp B/P (MAP) Pulse Ox O2 Delivery O2 Flow Rate FiO2 09/15/19 04:37 20 Nasal Cannula 09/15/19 03:45 97.8 75 94/68 (77) 92 2.0 97.8 Physical Exam Physical Exam GENERAL: confused, lethargic HEENT: Head normocephalic, atraumatic. NECK: Supple LUNGS: Clear to auscultation. HEART: RRR, S1, S2 present, pulses intact ABDOMEN: Soft, positive bowel sounds. EXTREMITIES: No cyanosis or edema. NEUROLOGIC: patient altered, normal pupils. does not follow commands PSYCHIATRIC: Normal affect, normal mood. SKIN: No ulceration. Labs LABS Laboratory Tests Test 09/14/19 16:26 09/14/19 16:35 09/14/19 16:45 09/14/19 19:50 Glucose (Fingerstick) 150 mg/dL (70-99) Influenza Type A Antigen Negative (NEGATIVE) Influenza Type B Antigen Negative (NEGATIVE) Urine Collection Type U cath Urine Color Yellow Urine Clarity Clear Urine pH 5.5 Urine Specific Brule 1.020 Urine Protein 100 mg/dL (NEG-TRACE) Urine Glucose (UA) Negative mg/dL (NEG) Urine Ketones (Stick) Negative mg/dL (NEG) Urine Blood Negative (NEG) Urine Nitrite Positive (NEG) Urine Bilirubin Negative (NEG) Urine Urobilinogen Dipstick 0.2 mg/dL (0.2 mg/dL) Urine Leukocyte Esterase Trace (NEG) Urine RBC 0 /HPF (0-2) Urine WBC 1-4 /HPF (0-4) Urine Squamous Epithelial Cells Mod /LPF Urine Bacteria Many /HPF (0-FEW) Urine Mucus Mod /LPF White Blood Count 17.2 x10^3/uL (4.0-11.0) Red Blood Count 4.30 x10^6/uL (3.50-5.40) Hemoglobin 13.0 g/dL (12.0-15.5) Hematocrit 39.6 % (36.0-47.0) Mean Corpuscular Volume 92 fL (79-100) Mean Corpuscular Hemoglobin 30 pg (25-35) Mean Corpuscular Hemoglobin Concent 33 g/dL (31-37) Red Cell Distribution Width 13.8 % (11.5-14.5) Platelet Count 301 x10^3/uL (140-400) Neutrophils (%) (Auto) 81 % (31-73) Lymphocytes (%) (Auto) 12 % (24-48) Monocytes (%) (Auto) 6 % (0-9) Eosinophils (%) (Auto) 0 % (0-3) Basophils (%) (Auto) 1 % (0-3) Neutrophils # (Auto) 14.0 x10^3/uL (1.8-7.7) Lymphocytes # (Auto) 2.1 x10^3/uL (1.0-4.8) Monocytes # (Auto) 1.1 x10^3/uL (0.0-1.1) Eosinophils # (Auto) 0.0 x10^3/uL (0.0-0.7) Basophils # (Auto) 0.1 x10^3/uL (0.0-0.2) Segmented Neutrophils % 69 % (35-66) Band Neutrophils % 8 % (0-9) Lymphocytes % 16 % (24-48) Monocytes % 7 % (0-10) Platelet Estimate Adequate (ADEQUATE) Prothrombin Time 14.9 SEC (11.7-14.0) Prothromb Time International Ratio 1.2 (0.8-1.1) Activated Partial Thromboplast Time 31 SEC (24-38) Sodium Level 139 mmol/L (136-145) Potassium Level 3.7 mmol/L (3.5-5.1) Chloride Level 96 mmol/L (98-107) Carbon Dioxide Level 28 mmol/L (21-32) Anion Gap 15 (6-14) Blood Urea Nitrogen 17 mg/dL (7-20) Creatinine 1.1 mg/dL (0.6-1.0) Estimated GFR (Cockcroft-Gault) 50.2 BUN/Creatinine Ratio 15 (6-20) Glucose Level 153 mg/dL (70-99) Lactic Acid Level 2.0 mmol/L (0.4-2.0) 1.3 mmol/L (0.4-2.0) Calcium Level 9.0 mg/dL (8.5-10.1) Magnesium Level 1.8 mg/dL (1.8-2.4) Total Bilirubin 0.5 mg/dL (0.2-1.0) Aspartate Amino Transf (AST/SGOT) 71 U/L (15-37) Alanine Aminotransferase (ALT/SGPT) 80 U/L (14-59) Alkaline Phosphatase 71 U/L (46-116) Ammonia < 10 mcmol/L (11-34) Creatine Kinase 336 U/L (26-192) Troponin I Quantitative < 0.017 ng/mL (0.000-0.055) KA-Jpw-S-Type Natriuretic Peptide 533 pg/mL (0-124) Total Protein 9.5 g/dL (6.4-8.2) Albumin 4.1 g/dL (3.4-5.0) Albumin/Globulin Ratio 0.8 (1.0-1.7) Lipase 115 U/L (73-393) Test 09/15/19 07:49 Glucose (Fingerstick) 97 mg/dL (70-99) Assessment and Plan Assessmemt and Plan Problems Medical Problems: (1) Altered level of consciousness Status: Acute (2) Fever Status: Acute (3) SIRS (systemic inflammatory response syndrome) Status: Acute Comment Review of Relevant I have reviewed the following items rhonda (where applicable) has been applied. Labs Laboratory Tests Test 09/14/19 16:26 09/14/19 16:35 09/14/19 16:45 09/14/19 19:50 Glucose (Fingerstick) 150 mg/dL (70-99) Influenza Type A Antigen Negative (NEGATIVE) Influenza Type B Antigen Negative (NEGATIVE) Urine Collection Type U cath Urine Color Yellow Urine Clarity Clear Urine pH 5.5 Urine Specific Brule 1.020 Urine Protein 100 mg/dL (NEG-TRACE) Urine Glucose (UA) Negative mg/dL (NEG) Urine Ketones (Stick) Negative mg/dL (NEG) Urine Blood Negative (NEG) Urine Nitrite Positive (NEG) Urine Bilirubin Negative (NEG) Urine Urobilinogen Dipstick 0.2 mg/dL (0.2 mg/dL) Urine Leukocyte Esterase Trace (NEG) Urine RBC 0 /HPF (0-2) Urine WBC 1-4 /HPF (0-4) Urine Squamous Epithelial Cells Mod /LPF Urine Bacteria Many /HPF (0-FEW) Urine Mucus Mod /LPF White Blood Count 17.2 x10^3/uL (4.0-11.0) Red Blood Count 4.30 x10^6/uL (3.50-5.40) Hemoglobin 13.0 g/dL (12.0-15.5) Hematocrit 39.6 % (36.0-47.0) Mean Corpuscular Volume 92 fL (79-100) Mean Corpuscular Hemoglobin 30 pg (25-35) Mean Corpuscular Hemoglobin Concent 33 g/dL (31-37) Red Cell Distribution Width 13.8 % (11.5-14.5) Platelet Count 301 x10^3/uL (140-400) Neutrophils (%) (Auto) 81 % (31-73) Lymphocytes (%) (Auto) 12 % (24-48) Monocytes (%) (Auto) 6 % (0-9) Eosinophils (%) (Auto) 0 % (0-3) Basophils (%) (Auto) 1 % (0-3) Neutrophils # (Auto) 14.0 x10^3/uL (1.8-7.7) Lymphocytes # (Auto) 2.1 x10^3/uL (1.0-4.8) Monocytes # (Auto) 1.1 x10^3/uL (0.0-1.1) Eosinophils # (Auto) 0.0 x10^3/uL (0.0-0.7) Basophils # (Auto) 0.1 x10^3/uL (0.0-0.2) Segmented Neutrophils % 69 % (35-66) Band Neutrophils % 8 % (0-9) Lymphocytes % 16 % (24-48) Monocytes % 7 % (0-10) Platelet Estimate Adequate (ADEQUATE) Prothrombin Time 14.9 SEC (11.7-14.0) Prothromb Time International Ratio 1.2 (0.8-1.1) Activated Partial Thromboplast Time 31 SEC (24-38) Sodium Level 139 mmol/L (136-145) Potassium Level 3.7 mmol/L (3.5-5.1) Chloride Level 96 mmol/L (98-107) Carbon Dioxide Level 28 mmol/L (21-32) Anion Gap 15 (6-14) Blood Urea Nitrogen 17 mg/dL (7-20) Creatinine 1.1 mg/dL (0.6-1.0) Estimated GFR (Cockcroft-Gault) 50.2 BUN/Creatinine Ratio 15 (6-20) Glucose Level 153 mg/dL (70-99) Lactic Acid Level 2.0 mmol/L (0.4-2.0) 1.3 mmol/L (0.4-2.0) Calcium Level 9.0 mg/dL (8.5-10.1) Magnesium Level 1.8 mg/dL (1.8-2.4) Total Bilirubin 0.5 mg/dL (0.2-1.0) Aspartate Amino Transf (AST/SGOT) 71 U/L (15-37) Alanine Aminotransferase (ALT/SGPT) 80 U/L (14-59) Alkaline Phosphatase 71 U/L (46-116) Ammonia < 10 mcmol/L (11-34) Creatine Kinase 336 U/L (26-192) Troponin I Quantitative < 0.017 ng/mL (0.000-0.055) MF-Bkz-B-Type Natriuretic Peptide 533 pg/mL (0-124) Total Protein 9.5 g/dL (6.4-8.2) Albumin 4.1 g/dL (3.4-5.0) Albumin/Globulin Ratio 0.8 (1.0-1.7) Lipase 115 U/L (73-393) Test 09/15/19 07:49 Glucose (Fingerstick) 97 mg/dL (70-99) Laboratory Tests Test 09/14/19 16:26 09/14/19 16:35 09/14/19 16:45 09/14/19 19:50 Glucose (Fingerstick) 150 mg/dL (70-99) Influenza Type A Antigen Negative (NEGATIVE) Influenza Type B Antigen Negative (NEGATIVE) Urine Collection Type U cath Urine Color Yellow Urine Clarity Clear Urine pH 5.5 Urine Specific Brule 1.020 Urine Protein 100 mg/dL (NEG-TRACE) Urine Glucose (UA) Negative mg/dL (NEG) Urine Ketones (Stick) Negative mg/dL (NEG) Urine Blood Negative (NEG) Urine Nitrite Positive (NEG) Urine Bilirubin Negative (NEG) Urine Urobilinogen Dipstick 0.2 mg/dL (0.2 mg/dL) Urine Leukocyte Esterase Trace (NEG) Urine RBC 0 /HPF (0-2) Urine WBC 1-4 /HPF (0-4) Urine Squamous Epithelial Cells Mod /LPF Urine Bacteria Many /HPF (0-FEW) Urine Mucus Mod /LPF White Blood Count 17.2 x10^3/uL (4.0-11.0) Red Blood Count 4.30 x10^6/uL (3.50-5.40) Hemoglobin 13.0 g/dL (12.0-15.5) Hematocrit 39.6 % (36.0-47.0) Mean Corpuscular Volume 92 fL (79-100) Mean Corpuscular Hemoglobin 30 pg (25-35) Mean Corpuscular Hemoglobin Concent 33 g/dL (31-37) Red Cell Distribution Width 13.8 % (11.5-14.5) Platelet Count 301 x10^3/uL (140-400) Neutrophils (%) (Auto) 81 % (31-73) Lymphocytes (%) (Auto) 12 % (24-48) Monocytes (%) (Auto) 6 % (0-9) Eosinophils (%) (Auto) 0 % (0-3) Basophils (%) (Auto) 1 % (0-3) Neutrophils # (Auto) 14.0 x10^3/uL (1.8-7.7) Lymphocytes # (Auto) 2.1 x10^3/uL (1.0-4.8) Monocytes # (Auto) 1.1 x10^3/uL (0.0-1.1) Eosinophils # (Auto) 0.0 x10^3/uL (0.0-0.7) Basophils # (Auto) 0.1 x10^3/uL (0.0-0.2) Segmented Neutrophils % 69 % (35-66) Band Neutrophils % 8 % (0-9) Lymphocytes % 16 % (24-48) Monocytes % 7 % (0-10) Platelet Estimate Adequate (ADEQUATE) Prothrombin Time 14.9 SEC (11.7-14.0) Prothromb Time International Ratio 1.2 (0.8-1.1) Activated Partial Thromboplast Time 31 SEC (24-38) Sodium Level 139 mmol/L (136-145) Potassium Level 3.7 mmol/L (3.5-5.1) Chloride Level 96 mmol/L (98-107) Carbon Dioxide Level 28 mmol/L (21-32) Anion Gap 15 (6-14) Blood Urea Nitrogen 17 mg/dL (7-20) Creatinine 1.1 mg/dL (0.6-1.0) Estimated GFR (Cockcroft-Gault) 50.2 BUN/Creatinine Ratio 15 (6-20) Glucose Level 153 mg/dL (70-99) Lactic Acid Level 2.0 mmol/L (0.4-2.0) 1.3 mmol/L (0.4-2.0) Calcium Level 9.0 mg/dL (8.5-10.1) Magnesium Level 1.8 mg/dL (1.8-2.4) Total Bilirubin 0.5 mg/dL (0.2-1.0) Aspartate Amino Transf (AST/SGOT) 71 U/L (15-37) Alanine Aminotransferase (ALT/SGPT) 80 U/L (14-59) Alkaline Phosphatase 71 U/L (46-116) Ammonia < 10 mcmol/L (11-34) Creatine Kinase 336 U/L (26-192) Troponin I Quantitative < 0.017 ng/mL (0.000-0.055) BU-Ffx-[id number]-Type Natriuretic Peptide 533 pg/mL (0-124) Total Protein 9.5 g/dL (6.4-8.2) Albumin 4.1 g/dL (3.4-5.0) Albumin/Globulin Ratio 0.8 (1.0-1.7) Lipase 115 U/L (73-393) Test 09/15/19 07:49 Glucose (Fingerstick) 97 mg/dL (70-99) Medications Current Medications Sodium Chloride 1,000 ml @ 1,000 mls/hr Q1H IV Last administered on 09/14/19at 17:05; Start 09/14/19 at 16:34; Stop 09/14/19 at 17:33; Status DC Acetaminophen (Tylenol Supp) 650 mg 1X ONCE WI Last administered on 09/14/19at 17:05; Start 09/14/19 at 16:45; Stop 09/14/19 at 16:53; Status DC Sodium Chloride 1,000 ml @ 2,000 mls/hr Q1H IV ; Start 09/14/19 at 17:30; Stop 09/14/19 at 18:13; Status DC Piperacillin Sod/ Tazobactam Sod 3.375 gm/Sodium Chloride 50 ml @ 100 mls/hr 1X ONCE IV Last administered on 09/14/19at 18:23; Start 09/14/19 at 17:30; Stop 09/14/19 at 17:59; Status DC Iohexol (Omnipaque 350 Mg/ml) 60 ml 1X ONCE IV Last administered on 09/14/19at 17:43; Start 09/14/19 at 17:30; Stop 09/14/19 at 17:31; Status DC Sodium Chloride 1,000 ml @ 1,000 mls/hr 1X ONCE IV Last administered on 09/14/19at 18:24; Start 09/14/19 at 18:15; Stop 09/14/19 at 19:14; Status DC Acetaminophen (Tylenol) 1,000 mg 1X ONCE PO Last administered on 09/14/19 18:51; Start 09/14/19 at 18:30; Stop 09/14/19 at 18:31; Status DC Ibuprofen (Motrin) 800 mg 1X ONCE PO Last administered on 09/14/19 18:51; Start 09/14/19 at 18:30; Stop 09/14/19 at 18:31; Status DC Ceftriaxone Sodium (Rocephin) 2 gm 1X ONCE IVP Last administered on 09/14/19at 19:33; Start 09/14/19 at 19:00; Stop 09/14/19 at 19:03; Status DC Vancomycin HCl 250 ml @ 250 mls/hr 1X ONCE IV ; Start 09/14/19 at 19:00; Stop 09/14/19 at 19:59; Status UNV Vancomycin HCl 1.75 gm/Sodium Chloride 500 ml @ 250 mls/hr 1X ONCE IV Last administered on 09/14/19at 19:41; Start 09/14/19 at 19:15; Stop 09/14/19 at 21:14; Status DC Ondansetron HCl (Zofran) 4 mg PRN Q8HRS PRN IV NAUSEA/VOMITING Last administered on 09/14/19 19:49; Start 09/14/19 at 19:30; Stop 09/15/19 at 19:29 Morphine Sulfate (Morphine Sulfate) 2 mg PRN Q2HR PRN IV PAIN Last administered on 09/15/19at 04:37; Start 09/14/19 at 19:30; Stop 09/15/19 at 19:29 Acetaminophen (Tylenol) 650 mg PRN Q4HRS PRN PO FEVER; Start 09/14/19 at 19:30; Stop 09/15/19 at 19:29 Sodium Chloride 1,000 ml @ 100 mls/hr Q10H IV Last administered on 09/14/19at 23:30; Start 09/14/19 at 23:30 Al Hydroxide/Mg Hydroxide (Mylanta Plus Xs) 30 ml PRN DAILY PRN PO HEARTBURN / GAS; Start 09/14/19 at 22:30 Vancomycin HCl (Vanco Per Pharmacy) 1 each PRN DAILY PRN MC SEE COMMENTS Last administered on 09/14/19at 23:19; Start 09/14/19 at 22:45 Ceftriaxone Sodium (Rocephin) 2 gm Q24H IVP ; Start 09/14/19 at 23:00; Stop 09/14/19 at 22:43; Status DC Ceftriaxone Sodium (Rocephin) 2 gm Q24H IVP ; Start 09/15/19 at 19:00 Insulin Human Lispro (HumaLOG) 0-5 UNITS TIDWMEALS SQ ; Start 09/15/19 at 08:00 Dextrose (Dextrose 50%-Water Syringe) 12.5 gm PRN Q15MIN PRN IV SEE COMMENTS; Start 09/14/19 at 23:00 Dextrose (Iv Dextrose 5%) 250 ml PRN Q15MIN PRN IV SEE COMMENTS; Start 09/14/19 at 23:00 Vancomycin HCl 1 gm/Sodium Chloride 250 ml @ 250 mls/hr Q24H IV ; Start 09/15/19 at 20:00 Vancomycin HCl (Vancomycin Trough Level) 1 each 1X ONCE MC ; Start 09/16/19 at 19:30; Stop 09/16/19 at 19:31 Vitals/I & O Vital Sign - Last 24 Hours 09/14/19 09/14/19 09/14/19 09/14/19 16:09 16:44 16:48 17:18 Temp 102.2 102.2 Pulse 111 106 106 102 Resp 22 20 18 23 B/P (MAP) 134/83 (100) 121/78 (92) 13/75 (55) 124/80 (95) Pulse Ox 93 94 93 97 O2 Delivery Nasal Cannula Nasal Cannula Nasal Cannula Nasal Cannula O2 Flow Rate 2.0 2.0 2.0 2.0 09/14/19 09/14/19 09/14/19 09/14/19 17:45 17:48 18:03 18:18 Pulse 108 106 102 108 Resp 30 23 20 24 B/P (MAP) 123/73 (90) 112/65 (81) 116/68 (84) 117/72 (87) Pulse Ox 95 97 94 96 O2 Delivery Nasal Cannula Nasal Cannula Nasal Cannula Nasal Cannula O2 Flow Rate 2.0 2.0 2.0 2.0 09/14/19 09/14/19 09/14/19 09/14/19 18:18 18:38 18:48 19:03 Temp 102.5 102.5 Pulse 102 102 100 Resp 25 18 16 B/P (MAP) 124/85 (98) 110/69 (83) 116/77 (90) Pulse Ox 97 95 98 O2 Delivery Nasal Cannula Nasal Cannula Nasal Cannula O2 Flow Rate 2.0 2.0 2.0 09/14/19 09/14/19 09/14/19 09/14/19 19:18 19:33 19:48 19:50 Pulse 100 92 92 Resp 20 20 16 15 B/P (MAP) 120/74 (89) 106/65 (79) 110/66 (81) Pulse Ox 96 95 94 94 O2 Delivery Nasal Cannula Nasal Cannula Nasal Cannula Nasal Cannula O2 Flow Rate 2.0 2.0 2.0 2.0 09/14/19 09/14/19 09/14/19 09/14/19 20:18 20:48 21:10 21:10 Temp 98.1 98.1 Pulse 84 84 84 76 Resp 15 15 20 B/P (MAP) 94/55 (68) 88/59 (69) 86/59 (68) 88/57 (67) Pulse Ox 92 95 95 93 O2 Delivery Nasal Cannula Nasal Cannula Nasal Cannula Nasal Cannula O2 Flow Rate 2.0 2.0 2.0 2.0 09/14/19 09/14/19 09/14/19 09/14/19 21:12 21:15 21:18 22:30 Temp 98.3 98.3 Pulse 84 82 Resp 18 15 B/P (MAP) 87/56 (66) 90/54 (66) Pulse Ox 95 93 O2 Delivery Nasal Cannula Nasal Cannula Nasal Cannula O2 Flow Rate 2.0 2.0 2.0 09/14/19 09/14/19 09/15/19 09/15/19 23:31 23:50 00:01 03:45 Temp 97.7 97.8 97.7 97.8 Pulse 74 75 Resp 18 17 18 17 B/P (MAP) 92/60 (71) 94/68 (77) Pulse Ox 93 92 92 92 O2 Delivery Nasal Cannula Nasal Cannula Nasal Cannula O2 Flow Rate 2.0 2.0 2.0 2.0 09/15/19 04:37 Resp 20 O2 Delivery Nasal Cannula Intake and Output 09/14/19 09/14/19 09/15/19 15:00 23:00 07:00 Intake Total 2050 ml 0 ml Balance 2050 ml 0 ml HOA DE OLIVEIRA MD Sep 15, 2019 08:11
[2019-09-15] MEDS ORDERED: LEVE500T6 PO (08:13)
[2019-09-15] MEDS ORDERED: MULT-245 PO (08:13)
[2019-09-15] MEDS ORDERED: ATEN50TA PO (08:13)
[2019-09-15] MEDS ORDERED: SERT100T PO (08:13)
[2019-09-15] MEDS ORDERED: ISOS30TA4 PO (08:13)
[2019-09-15] MEDS ORDERED: OMEG1CAP50 PO (08:13)
[2019-09-15] MEDS ORDERED: LEVO125T5 PO (08:13)
[2019-09-15] MEDS ORDERED: ATOR40TA59 PO (08:13)
[2019-09-15] MEDS ORDERED: DIPH25TA24 PO (08:13)
[2019-09-15] MEDS ORDERED: LORA10TA55 PO (08:13)
[2019-09-15] MEDS ORDERED: GABA600T7 PO (08:13)
[2019-09-15] MEDS ORDERED: BACL10TA PO (08:13)
[2019-09-15] MEDS ORDERED: RANI300T PO (08:13)
[2019-09-15] MEDS ORDERED: METF500T11 PO (08:13)
[2019-09-15] MEDS ORDERED: OLOP2.5D5 OP (08:13)
[2019-09-15] MEDS ORDERED: LOSA1TAB19 PO (08:13)
[2019-09-15] MEDS ORDERED: LEVO112T4 PO (08:20)
[2019-09-15] MEDS ORDERED: ASPI-612 PO (08:20)
[2019-09-15 09:17] LABS: ALBUMIN 2.7 g/dL (3.4-5.0); ALBUMIN/GLOBULIN RATIO 0.7 (1.0-1.7); CREATININE 0.9 mg/dL (0.6-1.0); DIRECT BILIRUBIN 0.1 mg/dL (0.0-0.2); GFR 76.5; POTASSIUM 3.4 mmol/L (3.5-5.1); TOTAL BILIRUBIN 0.3 mg/dL (0.2-1.0); TOTAL PROTEIN 6.8 g/dL (6.4-8.2)
[2019-09-15 09:19] LABS: CALCIUM 7.3 mg/dL (8.5-10.1)
[2019-09-15] MEDS: IV NORMAL SALINE 1000ML BAG 1,000 ML IV SCH ×2 (09:25→20:05)
[2019-09-15 11:00] VITALS: BP 92/60
--- NOTE | 2019-09-15 11:12 | PDOC2 ---
NEUROLOGY CONSULT Date of Admission Date of Admission DATE: 09/15/19 TIME: 11:03 Reason for Consult Reason for Consult: Altered mental status Referring Physician Referring Physician: Dr. Fowler Source Source: Caregiver (son), Chart review, Patient History of Present Illness History of Present Illness The patient is a 64-year-old right-handed female in town from [place] visiting her daughter who just had a baby. The patient has a history of brain tumor which required some sort of chemotherapy, but she recognizes the name "meningioma." Last no normal was 2 PM on 09/13. She came the [facility] yesterday because she was confused. The patient had been in the bed all day. There is a temperature of 102.2 on arrival. She's been found to have evidence of urinary tract infection. Lumbar puncture was attempted twice in the merged firm without success, a lumbar puncture was scheduled for this morning. The patient is much more bright and alert and denies any headache or neck pain. She does have some back pain.There is a remote history of seizures and she still is on levetiracetam. Past Medical History Cardiovascular: HTN, Hyperlipidemia CENTRAL NERVOUS SYSTEM: Other (Brain tumor) GI: GERD Endocrine: Diabetes Past Surgical History Past Surgical History: Other (brain tumor resection) Family History Family History: No pertinent hx Social History Social History , no alcohol or tobacco. Current Medications Current Medications Current Medications Sodium Chloride 1,000 ml @ 1,000 mls/hr Q1H IV Last administered on 09/14/19at 17:05; Start 09/14/19 at 16:34; Stop 09/14/19 at 17:33; Status DC Acetaminophen (Tylenol Supp) 650 mg 1X ONCE NJ Last administered on 09/14/19at 17:05; Start 09/14/19 at 16:45; Stop 09/14/19 at 16:53; Status DC Sodium Chloride 1,000 ml @ 2,000 mls/hr Q1H IV ; Start 09/14/19 at 17:30; Stop 09/14/19 at 18:13; Status DC Piperacillin Sod/ Tazobactam Sod 3.375 gm/Sodium Chloride 50 ml @ 100 mls/hr 1X ONCE IV Last administered on 09/14/19at 18:23; Start 09/14/19 at 17:30; Stop 09/14/19 at 17:59; Status DC Iohexol (Omnipaque 350 Mg/ml) 60 ml 1X ONCE IV Last administered on 09/14/19at 17:43; Start 09/14/19 at 17:30; Stop 09/14/19 at 17:31; Status DC Sodium Chloride 1,000 ml @ 1,000 mls/hr 1X ONCE IV Last administered on 09/14/19 18:24; Start 09/14/19 at 18:15; Stop 09/14/19 at 19:14; Status DC Acetaminophen (Tylenol) 1,000 mg 1X ONCE PO Last administered on 09/14/19at 18:51; Start 09/14/19 at 18:30; Stop 09/14/19 at 18:31; Status DC Ibuprofen (Motrin) 800 mg 1X ONCE PO Last administered on 09/14/19 18:51; Start 09/14/19 at 18:30; Stop 09/14/19 at 18:31; Status DC Ceftriaxone Sodium (Rocephin) 2 gm 1X ONCE IVP Last administered on 09/14/19at 19:33; Start 09/14/19 at 19:00; Stop 09/14/19 at 19:03; Status DC Vancomycin HCl 250 ml @ 250 mls/hr 1X ONCE IV ; Start 09/14/19 at 19:00; Stop 09/14/19 at 19:59; Status UNV Vancomycin HCl 1.75 gm/Sodium Chloride 500 ml @ 250 mls/hr 1X ONCE IV Last administered on 09/14/19 19:41; Start 09/14/19 at 19:15; Stop 09/14/19 at 21:14; Status DC Ondansetron HCl (Zofran) 4 mg PRN Q8HRS PRN IV NAUSEA/VOMITING Last administered on 09/14/19 19:49; Start 09/14/19 at 19:30; Stop 09/15/19 at 19:29 Morphine Sulfate (Morphine Sulfate) 2 mg PRN Q2HR PRN IV PAIN Last administered on 09/15/19at 09:27; Start 09/14/19 at 19:30; Stop 09/15/19 at 19:29 Acetaminophen (Tylenol) 650 mg PRN Q4HRS PRN PO FEVER; Start 09/14/19 at 19:30; Stop 09/15/19 at 19:29 Sodium Chloride 1,000 ml @ 100 mls/hr Q10H IV Last administered on 09/15/19at 09:25; Start 09/14/19 at 23:30 Al Hydroxide/Mg Hydroxide (Mylanta Plus Xs) 30 ml PRN DAILY PRN PO HEARTBURN / GAS; Start 09/14/19 at 22:30 Vancomycin HCl (Vanco Per Pharmacy) 1 each PRN DAILY PRN MC SEE COMMENTS Last administered on 09/14/19at 23:19; Start 09/14/19 at 22:45 Ceftriaxone Sodium (Rocephin) 2 gm Q24H IVP ; Start 09/14/19 at 23:00; Stop 09/14/19 at 22:43; Status DC Ceftriaxone Sodium (Rocephin) 2 gm Q24H IVP ; Start 09/15/19 at 19:00 Insulin Human Lispro (HumaLOG) 0-5 UNITS TIDWMEALS SQ ; Start 09/15/19 at 08:00 Dextrose (Dextrose 50%-Water Syringe) 12.5 gm PRN Q15MIN PRN IV SEE COMMENTS; Start 09/14/19 at 23:00 Dextrose (Iv Dextrose 5%) 250 ml PRN Q15MIN PRN IV SEE COMMENTS; Start 09/14/19 at 23:00 Vancomycin HCl 1 gm/Sodium Chloride 250 ml @ 250 mls/hr Q24H IV ; Start 09/15/19 at 20:00 Vancomycin HCl (Vancomycin Trough Level) 1 each 1X ONCE MC ; Start 09/16/19 at 19:30; Stop 09/16/19 at 19:31 Active Scripts Active Reported Aspirin Ec (Aspirin) 81 Mg Tablet.dr 1 Tab PO DAILY Levothyroxine Sodium 112 Mcg Tablet 1 Tab PO DAILY Multi Vitamin Daily (Multivitamin) 1 Each Tablet 1 Tab PO DAILY 30 Days Fish Oil 1,000 Mg Softgel ([place]-3 Fatty Acids/Fish Oil) 1 Each Capsule 1 Cap PO DAILY 30 Days Ranitidine Hcl 300 Mg Tablet 1 Tab PO QHS [place] (Olopatadine HCl) 2.5 Ml Drops 2.5 Ml OP DAILY Losartan-Hctz 50-12.5 Mg Tab (Losartan/Hydrochlorothiazide) 1 Each Tablet 1 Tab PO DAILY Levetiracetam 500 Mg Tablet 1 Tab PO BID Metformin Hcl Er (Metformin Hcl) 500 Mg Tab.er.24h 500 Mg PO BIDWMEALS Atenolol 50 Mg Tablet 1 Tab PO HS Diphenhydramine Hcl 25 Mg Tablet 25 Mg PO PRN PRN Loratadine 10 Mg Tab.rapdis 1 Tab PO DAILY 30 Days Baclofen 10 Mg Tablet 1 Tab PO BID Isosorbide Mononitrate Er (Isosorbide Mononitrate) 30 Mg Tab.er.24h 1 Tab PO DAILY Zoloft (Sertraline Hcl) 100 Mg Tablet 1 Tab PO DAILY Atorvastatin Calcium 40 Mg Tablet 1 Tab PO DAILY Gabapentin 600 Mg Tablet 600 Mg PO TID Allergies Allergies: Coded Allergies: No Known Drug Allergies (Unverified , 09/14/19) ROS Review of System Negative for fever, chills, weight loss, shortness of breath, chest pain, indigestion, hematochezia, melena, and dysuria. Full 14-point review of systems is negative. Physical Exam Physical Examination General: Well-developed, well-nourished black female in no acute distress HEENT: Normocephalic andatraumatic. Tympanic membranes clear.Temporal arteriespulsatile and nontender.Fundoscopic exam unremarkable Neck: Supple without bruit, no meningismus Musculoskeletal: Stability:see neurologic. Gait exam:see neurologic. Tone:see neurologic.S trength:see neurologic. Neurological: Mental Status:intact, orientation, memory, attention span/concentration, language, fund of knowledge normal. Cranial Nerves:Pupils equal and reactive to light, extraocular movements areintact, visual celis are full to confrontation. Facial sensation is normal. There is no facial asymmetry. Vestibulo-ocular reflex is intact. Palate elevates and tongue protrudes in midline. All other cranial related problems are negative except as mentioned before.Reflexes:2+ and symmetric with flexor plantar responses. Motor:4/5 strength with normal tone and bulk. Coordination:Finger-nose finger and sunday l-to-cano testing are normal. Rapid alternating movements and fine finger movements are intact. Gait:not tested. Sensory:Normal pinprick, vibration, light touch, proprioception. Vitals VITALS Vital Signs Date Time Temp Pulse Resp B/P (MAP) Pulse Ox O2 Delivery O2 Flow Rate FiO2 09/15/19 09:27 16 Nasal Cannula 3.0 09/15/19 07:00 97.6 82 101/62 (75) 96 97.6 Labs Labs Laboratory Tests Test 09/14/19 16:26 09/14/19 16:35 09/14/19 16:45 09/14/19 19:50 Glucose (Fingerstick) 150 mg/dL (70-99) Influenza Type A Antigen Negative (NEGATIVE) Influenza Type B Antigen Negative (NEGATIVE) Urine Collection Type U cath Urine Color Yellow Urine Clarity Clear Urine pH 5.5 Urine Specific [place] 1.020 Urine Protein 100 mg/dL (NEG-TRACE) Urine Glucose (UA) Negative mg/dL (NEG) Urine Ketones (Stick) Negative mg/dL (NEG) Urine Blood Negative (NEG) Urine Nitrite Positive (NEG) Urine Bilirubin Negative (NEG) Urine Urobilinogen Dipstick 0.2 mg/dL (0.2 mg/dL) Urine Leukocyte Esterase Trace (NEG) Urine RBC 0 /HPF (0-2) Urine WBC 1-4 /HPF (0-4) Urine Squamous Epithelial Cells Mod /LPF Urine Bacteria Many /HPF (0-FEW) Urine Mucus Mod /LPF White Blood Count 17.2 x10^3/uL (4.0-11.0) Red Blood Count 4.30 x10^6/uL (3.50-5.40) Hemoglobin 13.0 g/dL (12.0-15.5) Hematocrit 39.6 % (36.0-47.0) Mean Corpuscular Volume 92 fL (79-100) Mean Corpuscular Hemoglobin 30 pg (25-35) Mean Corpuscular Hemoglobin Concent 33 g/dL (31-37) Red Cell Distribution Width 13.8 % (11.5-14.5) Platelet Count 301 x10^3/uL (140-400) Neutrophils (%) (Auto) 81 % (31-73) Lymphocytes (%) (Auto) 12 % (24-48) Monocytes (%) (Auto) 6 % (0-9) Eosinophils (%) (Auto) 0 % (0-3) Basophils (%) (Auto) 1 % (0-3) Neutrophils # (Auto) 14.0 x10^3/uL (1.8-7.7) Lymphocytes # (Auto) 2.1 x10^3/uL (1.0-4.8) Monocytes # (Auto) 1.1 x10^3/uL (0.0-1.1) Eosinophils # (Auto) 0.0 x10^3/uL (0.0-0.7) Basophils # (Auto) 0.1 x10^3/uL (0.0-0.2) Segmented Neutrophils % 69 % (35-66) Band Neutrophils % 8 % (0-9) Lymphocytes % 16 % (24-48) Monocytes % 7 % (0-10) Platelet Estimate Adequate (ADEQUATE) Prothrombin Time 14.9 SEC (11.7-14.0) Prothromb Time International Ratio 1.2 (0.8-1.1) Activated Partial Thromboplast Time 31 SEC (24-38) Sodium Level 139 mmol/L (136-145) Potassium Level 3.7 mmol/L (3.5-5.1) Chloride Level 96 mmol/L (98-107) Carbon Dioxide Level 28 mmol/L (21-32) Anion Gap 15 (6-14) Blood Urea Nitrogen 17 mg/dL (7-20) Creatinine 1.1 mg/dL (0.6-1.0) Estimated GFR (Cockcroft-Gault) 50.2 BUN/Creatinine Ratio 15 (6-20) Glucose Level 153 mg/dL (70-99) Lactic Acid Level 2.0 mmol/L (0.4-2.0) 1.3 mmol/L (0.4-2.0) Calcium Level 9.0 mg/dL (8.5-10.1) Magnesium Level 1.8 mg/dL (1.8-2.4) Total Bilirubin 0.5 mg/dL (0.2-1.0) Aspartate Amino Transf (AST/SGOT) 71 U/L (15-37) Alanine Aminotransferase (ALT/SGPT) 80 U/L (14-59) Alkaline Phosphatase 71 U/L (46-116) Ammonia < 10 mcmol/L (11-34) Creatine Kinase 336 U/L (26-192) Troponin I Quantitative < 0.017 ng/mL (0.000-0.055) IS-Onj-P-Type Natriuretic Peptide 533 pg/mL (0-124) Total Protein 9.5 g/dL (6.4-8.2) Albumin 4.1 g/dL (3.4-5.0) Albumin/Globulin Ratio 0.8 (1.0-1.7) Lipase 115 U/L (73-393) Test 09/15/19 06:57 09/15/19 07:49 White Blood Count 12.6 x10^3/uL (4.0-11.0) Red Blood Count 3.35 x10^6/uL (3.50-5.40) Hemoglobin 10.3 g/dL (12.0-15.5) Hematocrit 31.1 % (36.0-47.0) Mean Corpuscular Volume 93 fL (79-100) Mean Corpuscular Hemoglobin 31 pg (25-35) Mean Corpuscular Hemoglobin Concent 33 g/dL (31-37) Red Cell Distribution Width 13.8 % (11.5-14.5) Platelet Count 213 x10^3/uL (140-400) Neutrophils (%) (Auto) 72 % (31-73) Lymphocytes (%) (Auto) 19 % (24-48) Monocytes (%) (Auto) 9 % (0-9) Eosinophils (%) (Auto) 0 % (0-3) Basophils (%) (Auto) 0 % (0-3) Neutrophils # (Auto) 9.1 x10^3/uL (1.8-7.7) Lymphocytes # (Auto) 2.3 x10^3/uL (1.0-4.8) Monocytes # (Auto) 1.1 x10^3/uL (0.0-1.1) Eosinophils # (Auto) 0.0 x10^3/uL (0.0-0.7) Basophils # (Auto) 0.0 x10^3/uL (0.0-0.2) Erythrocyte Sedimentation Rate 75 (0-25) Sodium Level 143 mmol/L (136-145) Potassium Level 3.4 mmol/L (3.5-5.1) Chloride Level 106 mmol/L (98-107) Carbon Dioxide Level 27 mmol/L (21-32) Anion Gap 10 (6-14) Blood Urea Nitrogen 13 mg/dL (7-20) Creatinine 0.9 mg/dL (0.6-1.0) Estimated GFR (Cockcroft-Gault) 76.5 BUN/Creatinine Ratio 14 (6-20) Glucose Level 106 mg/dL (70-99) Calcium Level 7.3 mg/dL (8.5-10.1) Total Bilirubin 0.3 mg/dL (0.2-1.0) Direct Bilirubin 0.1 mg/dL (0.0-0.2) Aspartate Amino Transf (AST/SGOT) 48 U/L (15-37) Alanine Aminotransferase (ALT/SGPT) 62 U/L (14-59) Alkaline Phosphatase 53 U/L (46-116) C-Reactive Protein, Quantitative 241.6 mg/L (0-3.3) Total Protein 6.8 g/dL (6.4-8.2) Albumin 2.7 g/dL (3.4-5.0) Albumin/Globulin Ratio 0.7 (1.0-1.7) Vitamin B12 Level 821 pg/mL (247-911) Thyroid Stimulating Hormone (TSH) 0.852 uIU/mL (0.358-3.74) Treponema pallidum Antibody Nonreactive (Nonreactive) Glucose (Fingerstick) 97 mg/dL (70-99) Laboratory Tests Test 09/14/19 16:26 09/14/19 16:35 09/14/19 16:45 09/14/19 19:50 Glucose (Fingerstick) 150 mg/dL (70-99) Influenza Type A Antigen Negative (NEGATIVE) Influenza Type B Antigen Negative (NEGATIVE) Urine Collection Type U cath Urine Color Yellow Urine Clarity Clear Urine pH 5.5 Urine Specific [place] 1.020 Urine Protein 100 mg/dL (NEG-TRACE) Urine Glucose (UA) Negative mg/dL (NEG) Urine Ketones (Stick) Negative mg/dL (NEG) Urine Blood Negative (NEG) Urine Nitrite Positive (NEG) Urine Bilirubin Negative (NEG) Urine Urobilinogen Dipstick 0.2 mg/dL (0.2 mg/dL) Urine Leukocyte Esterase Trace (NEG) Urine RBC 0 /HPF (0-2) Urine WBC 1-4 /HPF (0-4) Urine Squamous Epithelial Cells Mod /LPF Urine Bacteria Many /HPF (0-FEW) Urine Mucus Mod /LPF White Blood Count 17.2 x10^3/uL (4.0-11.0) Red Blood Count 4.30 x10^6/uL (3.50-5.40) Hemoglobin 13.0 g/dL (12.0-15.5) Hematocrit 39.6 % (36.0-47.0) Mean Corpuscular Volume 92 fL (79-100) Mean Corpuscular Hemoglobin 30 pg (25-35) Mean Corpuscular Hemoglobin Concent 33 g/dL (31-37) Red Cell Distribution Width 13.8 % (11.5-14.5) Platelet Count 301 x10^3/uL (140-400) Neutrophils (%) (Auto) 81 % (31-73) Lymphocytes (%) (Auto) 12 % (24-48) Monocytes (%) (Auto) 6 % (0-9) Eosinophils (%) (Auto) 0 % (0-3) Basophils (%) (Auto) 1 % (0-3) Neutrophils # (Auto) 14.0 x10^3/uL (1.8-7.7) Lymphocytes # (Auto) 2.1 x10^3/uL (1.0-4.8) Monocytes # (Auto) 1.1 x10^3/uL (0.0-1.1) Eosinophils # (Auto) 0.0 x10^3/uL (0.0-0.7) Basophils # (Auto) 0.1 x10^3/uL (0.0-0.2) Segmented Neutrophils % 69 % (35-66) Band Neutrophils % 8 % (0-9) Lymphocytes % 16 % (24-48) Monocytes % 7 % (0-10) Platelet Estimate Adequate (ADEQUATE) Prothrombin Time 14.9 SEC (11.7-14.0) Prothromb Time International Ratio 1.2 (0.8-1.1) Activated Partial Thromboplast Time 31 SEC (24-38) Sodium Level 139 mmol/L (136-145) Potassium Level 3.7 mmol/L (3.5-5.1) Chloride Level 96 mmol/L (98-107) Carbon Dioxide Level 28 mmol/L (21-32) Anion Gap 15 (6-14) Blood Urea Nitrogen 17 mg/dL (7-20) Creatinine 1.1 mg/dL (0.6-1.0) Estimated GFR (Cockcroft-Gault) 50.2 BUN/Creatinine Ratio 15 (6-20) Glucose Level 153 mg/dL (70-99) Lactic Acid Level 2.0 mmol/L (0.4-2.0) 1.3 mmol/L (0.4-2.0) Calcium Level 9.0 mg/dL (8.5-10.1) Magnesium Level 1.8 mg/dL (1.8-2.4) Total Bilirubin 0.5 mg/dL (0.2-1.0) Aspartate Amino Transf (AST/SGOT) 71 U/L (15-37) Alanine Aminotransferase (ALT/SGPT) 80 U/L (14-59) Alkaline Phosphatase 71 U/L (46-116) Ammonia < 10 mcmol/L (11-34) Creatine Kinase 336 U/L (26-192) Troponin I Quantitative < 0.017 ng/mL (0.000-0.055) GQ-Gvl-U-Type Natriuretic Peptide 533 pg/mL (0-124) Total Protein 9.5 g/dL (6.4-8.2) Albumin 4.1 g/dL (3.4-5.0) Albumin/Globulin Ratio 0.8 (1.0-1.7) Lipase 115 U/L (73-393) Test 09/15/19 06:57 09/15/19 07:49 White Blood Count 12.6 x10^3/uL (4.0-11.0) Red Blood Count 3.35 x10^6/uL (3.50-5.40) Hemoglobin 10.3 g/dL (12.0-15.5) Hematocrit 31.1 % (36.0-47.0) Mean Corpuscular Volume 93 fL (79-100) Mean Corpuscular Hemoglobin 31 pg (25-35) Mean Corpuscular Hemoglobin Concent 33 g/dL (31-37) Red Cell Distribution Width 13.8 % (11.5-14.5) Platelet Count 213 x10^3/uL (140-400) Neutrophils (%) (Auto) 72 % (31-73) Lymphocytes (%) (Auto) 19 % (24-48) Monocytes (%) (Auto) 9 % (0-9) Eosinophils (%) (Auto) 0 % (0-3) Basophils (%) (Auto) 0 % (0-3) Neutrophils # (Auto) 9.1 x10^3/uL (1.8-7.7) Lymphocytes # (Auto) 2.3 x10^3/uL (1.0-4.8) Monocytes # (Auto) 1.1 x10^3/uL (0.0-1.1) Eosinophils # (Auto) 0.0 x10^3/uL (0.0-0.7) Basophils # (Auto) 0.0 x10^3/uL (0.0-0.2) Erythrocyte Sedimentation Rate 75 (0-25) Sodium Level 143 mmol/L (136-145) Potassium Level 3.4 mmol/L (3.5-5.1) Chloride Level 106 mmol/L (98-107) Carbon Dioxide Level 27 mmol/L (21-32) Anion Gap 10 (6-14) Blood Urea Nitrogen 13 mg/dL (7-20) Creatinine 0.9 mg/dL (0.6-1.0) Estimated GFR (Cockcroft-Gault) 76.5 BUN/Creatinine Ratio 14 (6-20) Glucose Level 106 mg/dL (70-99) Calcium Level 7.3 mg/dL (8.5-10.1) Total Bilirubin 0.3 mg/dL (0.2-1.0) Direct Bilirubin 0.1 mg/dL (0.0-0.2) Aspartate Amino Transf (AST/SGOT) 48 U/L (15-37) Alanine Aminotransferase (ALT/SGPT) 62 U/L (14-59) Alkaline Phosphatase 53 U/L (46-116) C-Reactive Protein, Quantitative 241.6 mg/L (0-3.3) Total Protein 6.8 g/dL (6.4-8.2) Albumin 2.7 g/dL (3.4-5.0) Albumin/Globulin Ratio 0.7 (1.0-1.7) Vitamin B12 Level 821 pg/mL (247-911) Thyroid Stimulating Hormone (TSH) 0.852 uIU/mL (0.358-3.74) Treponema pallidum Antibody Nonreactive (Nonreactive) Glucose (Fingerstick) 97 mg/dL (70-99) Images Images Exam: CTA head and neck Visualized portions of the thoracic aorta are unremarkable. Standard three-vessel aortic arch anatomy. Right common carotid artery is patent without evidence of stenosis, occlusion or aneurysm. Cervical segment of the right internal carotid artery is patent without evidence of stenosis, occlusion or aneurysm. Left common carotid artery is patent without evidence of stenosis, occlusion or aneurysm. Minimal plaque at the origin of the left internal carotid artery without significant stenosis. Right vertebral artery is patent to basilar confluence without evidence of stenosis, occlusion or aneurysm. Left vertebral artery is patent to basilar confluence without evidence of stenosis, occlusion or aneurysm. Moderate centrilobular exam is change noted in the upper lungs. CTA HEAD: Minimal calcified plaque at the cavernous segment of the right internal carotid artery without cement stenosis. Right MCA is patent. Right GEO is patent. Mild calcified plaque at the cavernous segment of the left internal carotid artery without significant stenosis. Left MCA is patent. Left GEO is patent. Basilar artery is patent without evidence of stenosis, occlusion or aneurysm. cage loader are patent bilaterally. IMPRESSION: 1. No large vessel occlusion. 2. Mild calcified plaque at the origin of the left internal carotid artery without significant stenosis. 3. Minimal calcified plaque at the cavernous segments of the internal carotid arteries bilaterally without significant stenosis. Exam: CT head No focal parenchymal lesion or hemorrhage is identified. There is no midline shift or sulcal effacement. Hypodensity within the right parietal/temporal lobe, likely related to encephalomalacia. No acute vascular territory infarction is identified. Clarke-white distinction is preserved. The ventricular system is within normal limits without compression hydrocephalus. The basal cisterns are well maintained. Craniotomy changes are noted at the left parietal region. Mild mucosal thickening is noted within the maxillary sinuses bilaterally. No acute fractures. IMPRESSION: Craniotomy changes in the left parietal region with underlying hypodensity in the parietal and temporal lobe favored represent encephalomalacia. Superimposed subacute ischemia is difficult to exclude. Assessment/Plan Assessment/Plan Impression: systemic inflammatory response syndrome related to urinary tract infection,.she has meningitis or encephalitis given rapid improvement. History brain tumor resection, remote seizure history. Recommendations: I canceled the lumbar puncture. Continue current antibiotics. Full supportive care I discussed with patient and her son. Thank you for letting me help with the patient's care. LAY BUSCH MD Sep 15, 2019 11:11
[2019-09-15] MEDS: SERTRALINE 50 MG TABLET. PO SCH (13:21)
[2019-09-15] MEDS: ASPIRIN ENTERIC COATED 81 MG TABLET.DR. PO SCH (13:21)
[2019-09-15] MEDS: LEVOTHYROXINE 112 MCG TABLET PO SCH (13:21)
[2019-09-15] MEDS: levETIRAcetam 500 MG TABLET PO SCH ×2 (13:21→20:06)
--- NOTE | 2019-09-15 14:01 | NUR ---
SS following for discharge planning. SS reviewed pt chart. Pt is from home and is currently requiring oxygen. SS will continue to follow for discharge planning.
[2019-09-15 15:00] VITALS: BP 143/89
[2019-09-15] MEDS: VANCOMYCIN PER PHARMACY MC PRN (16:00)
[2019-09-15] MEDS ORDERED: POTASSIUM CHLORIDE 20 MEQ TABLET.ER. PO ONE (17:00)
[2019-09-15] MEDS: cefTRIAXone IV Push 2 GM VIAL. IVP SCH (18:42)
[2019-09-15 19:57] VITALS: BP 121/81
[2019-09-15] MEDS ORDERED: VANCOMYCIN 1 GM in IV NORMAL SALINE 250ML 250 ML IV SCH (20:00)
[2019-09-15 23:30] VITALS: BP 121/77
[2019-09-16] MEDS: MORPHINE SULFATE 2 MG/ML VIAL. IV PRN ×3 (00:16→07:45)
[2019-09-16 03:10] VITALS: BP 118/72
[2019-09-16] MEDS: ONDANSETRON PF 4 MG/2 ML VIAL. IVP PRN (03:56)
[2019-09-16] MEDS: IV NORMAL SALINE 1000ML BAG 1,000 ML IV SCH ×2 (05:30→16:25)
[2019-09-16 07:00] VITALS: BP 119/83
[2019-09-16] MEDS: INSULIN LISPRO 300 UNITS/3 ML VIAL. SQ SCH ×3 (08:00→17:00)
[2019-09-16] MEDS: ASPIRIN ENTERIC COATED 81 MG TABLET.DR. PO SCH (09:03)
[2019-09-16] MEDS: LEVOTHYROXINE 112 MCG TABLET PO SCH (09:03)
[2019-09-16] MEDS: levETIRAcetam 500 MG TABLET PO SCH ×2 (09:03→20:49)
[2019-09-16] MEDS: SERTRALINE 50 MG TABLET. PO SCH (09:04)
[2019-09-16] MEDS: oxyCODONE/APAP 5/325 1 TAB TABLET PO PRN ×2 (09:57→20:49)
[2019-09-16 11:00] VITALS: BP 119/78
--- NOTE | 2019-09-16 11:14 | PDOC ---
PROGRESS NOTES Chief Complaint Chief Complaint A/P: Acute toxic and metabolic encephalopathy Sepsis, POA Presumptive UTI Hx of Brain Tumor on Seizure ppx HTN DM Hypothyroidism GERD PLAN admit to tele bed neuro checks q 4 hrs continue empiric Rocephin and Vanc check B12, RPR, TSH, ESR, CRP Home medicines reconciled IVF fluids for now NPO status till cleared by speech neuro consulted if LP negative and still altered, will consider MRI brain full code scds for dvt ppx (hold heparin since LP in AM) plan of care updated to son History of Present Illness History of Present Illness 64 year old BF with hx of HTN, HLD, GERD, DM, prior brain tumor sx on keppra for seizur ppx who is from [facility] visiting her daughter and baby here in [place]. patient seen last in her normal state around 2 pm yesterday and found by her daughter this AM confused since this AM per son who was at the bedside providing as much history as he can. he also notes that patient was in bed most of the day yesterday. noted temp of 102.2 upon arrival. patient appears very lethargic and answers questions minimally. no reported cough, dysuria, chest pain, sob, nausea vomiting diarrhea. no reported illicit drug use. has had adequate PO intake per son. patient usually more alert and awake and per son, this is not her normal self. no prior hx of stroke. no reported seizure activity per family. takes all medications as prescribed. LP attempted twice in ED and unsuccessful. in light of AMS and fever, VANC and Rocephin started empirically. blood and urine cultures ordered. 09/15: WBC noted to be 17k. CT head negative She is mentating better today. No LP indicated. Awaiting final urine cultures. Vitals Vitals Vital Signs Date Time Temp Pulse Resp B/P (MAP) Pulse Ox O2 Delivery O2 Flow Rate FiO2 09/16/19 11:00 97.5 75 14 119/78 (92) 93 Nasal Cannula 2.0 97.5 Physical Exam Physical Exam GENERAL: confused, lethargic HEENT: Head normocephalic, atraumatic. NECK: Supple LUNGS: Clear to auscultation. HEART: RRR, S1, S2 present, pulses intact ABDOMEN: Soft, positive bowel sounds. EXTREMITIES: No cyanosis or edema. NEUROLOGIC: patient altered, normal pupils. does not follow commands PSYCHIATRIC: Normal affect, normal mood. SKIN: No ulceration. Labs LABS Laboratory Tests Test 09/15/19 11:31 09/15/19 16:53 09/15/19 21:11 09/16/19 07:32 Glucose (Fingerstick) 82 mg/dL (70-99) 86 mg/dL (70-99) 91 mg/dL (70-99) 89 mg/dL (70-99) Assessment and Plan Assessmemt and Plan Problems Medical Problems: (1) Altered level of consciousness Status: Acute (2) Fever Status: Acute (3) SIRS (systemic inflammatory response syndrome) Status: Acute Comment Review of Relevant I have reviewed the following items rhonda (where applicable) has been applied. Labs Laboratory Tests Test 09/14/19 16:26 09/14/19 16:35 09/14/19 16:45 09/14/19 19:50 Glucose (Fingerstick) 150 mg/dL (70-99) Influenza Type A Antigen Negative (NEGATIVE) Influenza Type B Antigen Negative (NEGATIVE) Urine Collection Type U cath Urine Color Yellow Urine Clarity Clear Urine pH 5.5 Urine Specific [place] 1.020 Urine Protein 100 mg/dL (NEG-TRACE) Urine Glucose (UA) Negative mg/dL (NEG) Urine Ketones (Stick) Negative mg/dL (NEG) Urine Blood Negative (NEG) Urine Nitrite Positive (NEG) Urine Bilirubin Negative (NEG) Urine Urobilinogen Dipstick 0.2 mg/dL (0.2 mg/dL) Urine Leukocyte Esterase Trace (NEG) Urine RBC 0 /HPF (0-2) Urine WBC 1-4 /HPF (0-4) Urine Squamous Epithelial Cells Mod /LPF Urine Bacteria Many /HPF (0-FEW) Urine Mucus Mod /LPF White Blood Count 17.2 x10^3/uL (4.0-11.0) Red Blood Count 4.30 x10^6/uL (3.50-5.40) Hemoglobin 13.0 g/dL (12.0-15.5) Hematocrit 39.6 % (36.0-47.0) Mean Corpuscular Volume 92 fL (79-100) Mean Corpuscular Hemoglobin 30 pg (25-35) Mean Corpuscular Hemoglobin Concent 33 g/dL (31-37) Red Cell Distribution Width 13.8 % (11.5-14.5) Platelet Count 301 x10^3/uL (140-400) Neutrophils (%) (Auto) 81 % (31-73) Lymphocytes (%) (Auto) 12 % (24-48) Monocytes (%) (Auto) 6 % (0-9) Eosinophils (%) (Auto) 0 % (0-3) Basophils (%) (Auto) 1 % (0-3) Neutrophils # (Auto) 14.0 x10^3/uL (1.8-7.7) Lymphocytes # (Auto) 2.1 x10^3/uL (1.0-4.8) Monocytes # (Auto) 1.1 x10^3/uL (0.0-1.1) Eosinophils # (Auto) 0.0 x10^3/uL (0.0-0.7) Basophils # (Auto) 0.1 x10^3/uL (0.0-0.2) Segmented Neutrophils % 69 % (35-66) Band Neutrophils % 8 % (0-9) Lymphocytes % 16 % (24-48) Monocytes % 7 % (0-10) Platelet Estimate Adequate (ADEQUATE) Prothrombin Time 14.9 SEC (11.7-14.0) Prothromb Time International Ratio 1.2 (0.8-1.1) Activated Partial Thromboplast Time 31 SEC (24-38) Sodium Level 139 mmol/L (136-145) Potassium Level 3.7 mmol/L (3.5-5.1) Chloride Level 96 mmol/L (98-107) Carbon Dioxide Level 28 mmol/L (21-32) Anion Gap 15 (6-14) Blood Urea Nitrogen 17 mg/dL (7-20) Creatinine 1.1 mg/dL (0.6-1.0) Estimated GFR (Cockcroft-Gault) 50.2 BUN/Creatinine Ratio 15 (6-20) Glucose Level 153 mg/dL (70-99) Lactic Acid Level 2.0 mmol/L (0.4-2.0) 1.3 mmol/L (0.4-2.0) Calcium Level 9.0 mg/dL (8.5-10.1) Magnesium Level 1.8 mg/dL (1.8-2.4) Total Bilirubin 0.5 mg/dL (0.2-1.0) Aspartate Amino Transf (AST/SGOT) 71 U/L (15-37) Alanine Aminotransferase (ALT/SGPT) 80 U/L (14-59) Alkaline Phosphatase 71 U/L (46-116) Ammonia < 10 mcmol/L (11-34) Creatine Kinase 336 U/L (26-192) Troponin I Quantitative < 0.017 ng/mL (0.000-0.055) RO-Mnt-X-Type Natriuretic Peptide 533 pg/mL (0-124) Total Protein 9.5 g/dL (6.4-8.2) Albumin 4.1 g/dL (3.4-5.0) Albumin/Globulin Ratio 0.8 (1.0-1.7) Lipase 115 U/L (73-393) Test 09/15/19 06:57 09/15/19 07:49 09/15/19 11:31 09/15/19 16:53 White Blood Count 12.6 x10^3/uL (4.0-11.0) Red Blood Count 3.35 x10^6/uL (3.50-5.40) Hemoglobin 10.3 g/dL (12.0-15.5) Hematocrit 31.1 % (36.0-47.0) Mean Corpuscular Volume 93 fL (79-100) Mean Corpuscular Hemoglobin 31 pg (25-35) Mean Corpuscular Hemoglobin Concent 33 g/dL (31-37) Red Cell Distribution Width 13.8 % (11.5-14.5) Platelet Count 213 x10^3/uL (140-400) Neutrophils (%) (Auto) 72 % (31-73) Lymphocytes (%) (Auto) 19 % (24-48) Monocytes (%) (Auto) 9 % (0-9) Eosinophils (%) (Auto) 0 % (0-3) Basophils (%) (Auto) 0 % (0-3) Neutrophils # (Auto) 9.1 x10^3/uL (1.8-7.7) Lymphocytes # (Auto) 2.3 x10^3/uL (1.0-4.8) Monocytes # (Auto) 1.1 x10^3/uL (0.0-1.1) Eosinophils # (Auto) 0.0 x10^3/uL (0.0-0.7) Basophils # (Auto) 0.0 x10^3/uL (0.0-0.2) Erythrocyte Sedimentation Rate 75 (0-25) Sodium Level 143 mmol/L (136-145) Potassium Level 3.4 mmol/L (3.5-5.1) Chloride Level 106 mmol/L (98-107) Carbon Dioxide Level 27 mmol/L (21-32) Anion Gap 10 (6-14) Blood Urea Nitrogen 13 mg/dL (7-20) Creatinine 0.9 mg/dL (0.6-1.0) Estimated GFR (Cockcroft-Gault) 76.5 BUN/Creatinine Ratio 14 (6-20) Glucose Level 106 mg/dL (70-99) Calcium Level 7.3 mg/dL (8.5-10.1) Magnesium Level 1.8 mg/dL (1.8-2.4) Total Bilirubin 0.3 mg/dL (0.2-1.0) Direct Bilirubin 0.1 mg/dL (0.0-0.2) Aspartate Amino Transf (AST/SGOT) 48 U/L (15-37) Alanine Aminotransferase (ALT/SGPT) 62 U/L (14-59) Alkaline Phosphatase 53 U/L (46-116) C-Reactive Protein, Quantitative 241.6 mg/L (0-3.3) Total Protein 6.8 g/dL (6.4-8.2) Albumin 2.7 g/dL (3.4-5.0) Albumin/Globulin Ratio 0.7 (1.0-1.7) Vitamin B12 Level 821 pg/mL (247-911) Thyroid Stimulating Hormone (TSH) 0.852 uIU/mL (0.358-3.74) Treponema pallidum Antibody Nonreactive (Nonreactive) Glucose (Fingerstick) 97 mg/dL (70-99) 82 mg/dL (70-99) 86 mg/dL (70-99) Test 09/15/19 21:11 09/16/19 07:32 Glucose (Fingerstick) 91 mg/dL (70-99) 89 mg/dL (70-99) Laboratory Tests Test 09/15/19 11:31 09/15/19 16:53 09/15/19 21:11 09/16/19 07:32 Glucose (Fingerstick) 82 mg/dL (70-99) 86 mg/dL (70-99) 91 mg/dL (70-99) 89 mg/dL (70-99) Microbiology 09/14/19 Blood Culture - Preliminary, Resulted NO GROWTH AFTER 1 DAY Medications Current Medications Sodium Chloride 1,000 ml @ 1,000 mls/hr Q1H IV Last administered on 09/14/19at 17:05; Start 09/14/19 at 16:34; Stop 09/14/19 at 17:33; Status DC Acetaminophen (Tylenol Supp) 650 mg 1X ONCE IN Last administered on 09/14/19at 17:05; Start 09/14/19 at 16:45; Stop 09/14/19 at 16:53; Status DC Sodium Chloride 1,000 ml @ 2,000 mls/hr Q1H IV ; Start 09/14/19 at 17:30; Stop 09/14/19 at 18:13; Status DC Piperacillin Sod/ Tazobactam Sod 3.375 gm/Sodium Chloride 50 ml @ 100 mls/hr 1X ONCE IV Last administered on 09/14/19at 18:23; Start 09/14/19 at 17:30; Stop 09/14/19 at 17:59; Status DC Iohexol (Omnipaque 350 Mg/ml) 60 ml 1X ONCE IV Last administered on 09/14/19at 17:43; Start 09/14/19 at 17:30; Stop 09/14/19 at 17:31; Status DC Sodium Chloride 1,000 ml @ 1,000 mls/hr 1X ONCE IV Last administered on 09/14/19at 18:24; Start 09/14/19 at 18:15; Stop 09/14/19 at 19:14; Status DC Acetaminophen (Tylenol) 1,000 mg 1X ONCE PO Last administered on 09/14/19at 18:51; Start 09/14/19 at 18:30; Stop 09/14/19 at 18:31; Status DC Ibuprofen (Motrin) 800 mg 1X ONCE PO Last administered on 09/14/19at 18:51; Start 09/14/19 at 18:30; Stop 09/14/19 at 18:31; Status DC Ceftriaxone Sodium (Rocephin) 2 gm 1X ONCE IVP Last administered on 09/14/19at 19:33; Start 09/14/19 at 19:00; Stop 09/14/19 at 19:03; Status DC Vancomycin HCl 250 ml @ 250 mls/hr 1X ONCE IV ; Start 09/14/19 at 19:00; Stop 09/14/19 at 19:59; Status UNV Vancomycin HCl 1.75 gm/Sodium Chloride 500 ml @ 250 mls/hr 1X ONCE IV Last administered on 09/14/19at 19:41; Start 09/14/19 at 19:15; Stop 09/14/19 at 21:14; Status DC Ondansetron HCl (Zofran) 4 mg PRN Q8HRS PRN IV NAUSEA/VOMITING Last administered on 09/14/19at 19:49; Start 09/14/19 at 19:30; Stop 09/15/19 at 19:29; Status DC Morphine Sulfate (Morphine Sulfate) 2 mg PRN Q2HR PRN IV PAIN Last administered on 09/15/19at 18:47; Start 09/14/19 at 19:30; Stop 09/15/19 at 19:29; Status DC Acetaminophen (Tylenol) 650 mg PRN Q4HRS PRN PO FEVER; Start 09/14/19 at 19:30; Stop 09/15/19 at 19:29; Status DC Sodium Chloride 1,000 ml @ 100 mls/hr Q10H IV Last administered on 09/16/19at 05:30; Start 09/14/19 at 23:30 Al Hydroxide/Mg Hydroxide (Mylanta Plus Xs) 30 ml PRN DAILY PRN PO HEARTBURN / GAS; Start 09/14/19 at 22:30 Vancomycin HCl (Vanco Per Pharmacy) 1 each PRN DAILY PRN MC SEE COMMENTS Last administered on 09/15/19at 16:00; Start 09/14/19 at 22:45 Ceftriaxone Sodium (Rocephin) 2 gm Q24H IVP ; Start 09/14/19 at 23:00; Stop 09/14/19 at 22:43; Status DC Ceftriaxone Sodium (Rocephin) 2 gm Q24H IVP Last administered on 09/15/19at 18:4 2; Start 09/15/19 at 19:00 Insulin Human Lispro (HumaLOG) 0-5 UNITS TIDWMEALS SQ ; Start 09/15/19 at 08:00 Dextrose (Dextrose 50%-Water Syringe) 12.5 gm PRN Q15MIN PRN IV SEE COMMENTS; Start 09/14/19 at 23:00 Dextrose (Iv Dextrose 5%) 250 ml PRN Q15MIN PRN IV SEE COMMENTS; Start 09/14/19 at 23:00 Vancomycin HCl 1 gm/Sodium Chloride 250 ml @ 250 mls/hr Q24H IV Last administered on 09/15/19at 20:06; Start 09/15/19 at 20:00 Vancomycin HCl (Vancomycin Trough Level) 1 each 1X ONCE MC ; Start 09/16/19 at 19:30; Stop 09/16/19 at 19:31 Aspirin (Ecotrin) 81 mg DAILY PO Last administered on 09/16/19at 09:03; Start 09/15/19 at 12:00 Atorvastatin Calcium (Lipitor) 40 mg QHS PO ; Start 09/16/19 at 21:00 Levetiracetam (Keppra) 500 mg BID PO Last administered on 09/16/19 09:03; Start 09/15/19 at 12:00 Levothyroxine Sodium (Synthroid) 112 mcg DAILY PO Last administered on 09/16/19 09:03; Start 09/15/19 at 12:00 Sertraline HCl (Zoloft) 100 mg DAILY PO Last administered on 09/16/19 09:04; Start 09/15/19 at 12:00 Potassium Chloride (Klor-Con) 40 meq 1X ONCE PO Last administered on 09/15/19at 18:42; Start 09/15/19 at 17:00; Stop 09/15/19 at 17:01; Status DC Ondansetron HCl (Zofran) 4 mg PRN Q6HRS PRN IVP NAUSEA/VOMITING Last administered on 09/16/19 03:56; Start 09/15/19 at 20:15 Morphine Sulfate (Morphine Sulfate) 2 mg PRN Q2HR PRN IV PAIN Last administered on 09/16/19 07:45; Start 09/15/19 at 20:15 Oxycodone/ Acetaminophen (Percocet 5/325) 1 tab PRN Q6HRS PRN PO PAIN Last administered on 09/16/19 09:57; Start 09/16/19 at 05:30 Active Scripts Active Reported Aspirin Ec (Aspirin) 81 Mg Tablet.dr 1 Tab PO DAILY Levothyroxine Sodium 112 Mcg Tablet 1 Tab PO DAILY Multi Vitamin Daily (Multivitamin) 1 Each Tablet 1 Tab PO DAILY 30 Days Fish Oil 1,000 Mg Softgel ([place]-3 Fatty Acids/Fish Oil) 1 Each Capsule 1 Cap PO DAILY 30 Days Ranitidine Hcl 300 Mg Tablet 1 Tab PO QHS [place] (Olopatadine HCl) 2.5 Ml Drops 2.5 Ml OP DAILY Losartan-Hctz 50-12.5 Mg Tab (Losartan/Hydrochlorothiazide) 1 Each Tablet 1 Tab PO DAILY Levetiracetam 500 Mg Tablet 1 Tab PO BID Metformin Hcl Er (Metformin Hcl) 500 Mg Tab.er.24h 500 Mg PO BIDWMEALS Atenolol 50 Mg Tablet 1 Tab PO HS Diphenhydramine Hcl 25 Mg Tablet 25 Mg PO PRN PRN Loratadine 10 Mg Tab.rapdis 1 Tab PO DAILY 30 Days Baclofen 10 Mg Tablet 1 Tab PO BID Isosorbide Mononitrate Er (Isosorbide Mononitrate) 30 Mg Tab.er.24h 1 Tab PO DAILY Zoloft (Sertraline Hcl) 100 Mg Tablet 1 Tab PO DAILY Atorvastatin Calcium 40 Mg Tablet 1 Tab PO DAILY Gabapentin 600 Mg Tablet 600 Mg PO TID Vitals/I & O Vital Sign - Last 24 Hours 09/15/19 09/15/19 09/15/19 09/15/19 13:23 13:53 15:00 18:47 Temp 98.4 98.4 Pulse 110 Resp 18 18 18 18 B/P (MAP) 143/89 (107) Pulse Ox 93 O2 Delivery Nasal Cannula Nasal Cannula Nasal Cannula Nasal Cannula O2 Flow Rate 3.0 2.0 3.0 09/15/19 09/15/19 09/15/19 09/15/19 19:57 20:00 21:13 21:43 Temp 98.9 98.9 Pulse 101 Resp 20 16 16 B/P (MAP) 121/81 (94) Pulse Ox 92 92 92 O2 Delivery Nasal Cannula Nasal Cannula Nasal Cannula Nasal Cannula O2 Flow Rate 2.0 2.0 2.0 2.0 09/15/19 09/16/19 09/16/19 09/16/19 23:30 00:16 00:46 03:10 Temp 98.7 98.4 98.7 98.4 Pulse 96 92 Resp 16 16 16 16 B/P (MAP) 121/77 (92) 118/72 (87) Pulse Ox 91 95 O2 Delivery Nasal Cannula Nasal Cannula Nasal Cannula Nasal Cannula O2 Flow Rate 2.0 2.0 2.0 2.0 09/16/19 09/16/19 09/16/19 09/16/19 03:16 03:46 07:00 07:45 Temp 98.0 98.0 Pulse 88 Resp 24 16 14 18 B/P (MAP) 119/83 (95) Pulse Ox 91 94 91 O2 Delivery Nasal Cannula Nasal Cannula Nasal Cannula O2 Flow Rate 2.0 2.0 2.0 09/16/19 09/16/19 09/16/19 09/16/19 08:00 08:15 09:57 11:00 Temp 97.5 97.5 Pulse 75 Resp 19 19 14 B/P (MAP) 119/78 (92) Pulse Ox 91 91 93 O2 Delivery Nasal Cannula Nasal Cannula Nasal Cannula Nasal Cannula O2 Flow Rate 2.0 2.0 2.0 2.0 Intake and Output 09/15/19 09/15/19 09/16/19 15:00 23:00 07:00 Intake Total 200 ml 300 ml 800 ml Balance 200 ml 300 ml 800 ml HOA DE OLIVEIRA MD Sep 16, 2019 11:14
--- NOTE | 2019-09-16 13:14 | PDOC ---
PROGRESS NOTES Assessment Problems Medical Problems: (1) Altered level of consciousness Status: Acute (2) Fever Status: Acute (3) SIRS (systemic inflammatory response syndrome) Status: Acute Systemic inflammatory response syndrome related to urinary tract infection, doubt she has meningitis or encephalitis given rapid improvement. History brain tumor resection, remote seizure history. Plan Continue current antibiotics. Full supportive care Subjective no complaints Objective Vital Signs Date Time Temp Pulse Resp B/P (MAP) Pulse Ox O2 Delivery O2 Flow Rate FiO2 09/16/19 11:00 97.5 75 14 119/78 (92) 93 Nasal Cannula 2.0 97.5 Intake and Output 09/16/19 07:00 Intake Total 1300 ml Balance 1300 ml Intake Oral 1300 ml # Voids 4 # Bowel Movements 1 PHYSICAL EXAM Alert. Oriented to time, place and person. PERRL. EOMI. CN: no focal findings. Muscle tone: normal. Muscle strength: 4/5 DTR: 2+ Plantar reflex: flexor Gait: not examined in bed. Sensory exam: no abnormal findings. No cerebellar signs elicited. Review of Relevant I have reviewed the following items rhonda (where applicable) has been applied. Labs Laboratory Tests Test 09/14/19 16:26 09/14/19 16:35 09/14/19 16:45 09/14/19 19:50 Glucose (Fingerstick) 150 mg/dL (70-99) Influenza Type A Antigen Negative (NEGATIVE) Influenza Type B Antigen Negative (NEGATIVE) Urine Collection Type U cath Urine Color Yellow Urine Clarity Clear Urine pH 5.5 Urine Specific [place] 1.020 Urine Protein 100 mg/dL (NEG-TRACE) Urine Glucose (UA) Negative mg/dL (NEG) Urine Ketones (Stick) Negative mg/dL (NEG) Urine Blood Negative (NEG) Urine Nitrite Positive (NEG) Urine Bilirubin Negative (NEG) Urine Urobilinogen Dipstick 0.2 mg/dL (0.2 mg/dL) Urine Leukocyte Esterase Trace (NEG) Urine RBC 0 /HPF (0-2) Urine WBC 1-4 /HPF (0-4) Urine Squamous Epithelial Cells Mod /LPF Urine Bacteria Many /HPF (0-FEW) Urine Mucus Mod /LPF White Blood Count 17.2 x10^3/uL (4.0-11.0) Red Blood Count 4.30 x10^6/uL (3.50-5.40) Hemoglobin 13.0 g/dL (12.0-15.5) Hematocrit 39.6 % (36.0-47.0) Mean Corpuscular Volume 92 fL (79-100) Mean Corpuscular Hemoglobin 30 pg (25-35) Mean Corpuscular Hemoglobin Concent 33 g/dL (31-37) Red Cell Distribution Width 13.8 % (11.5-14.5) Platelet Count 301 x10^3/uL (140-400) Neutrophils (%) (Auto) 81 % (31-73) Lymphocytes (%) (Auto) 12 % (24-48) Monocytes (%) (Auto) 6 % (0-9) Eosinophils (%) (Auto) 0 % (0-3) Basophils (%) (Auto) 1 % (0-3) Neutrophils # (Auto) 14.0 x10^3/uL (1.8-7.7) Lymphocytes # (Auto) 2.1 x10^3/uL (1.0-4.8) Monocytes # (Auto) 1.1 x10^3/uL (0.0-1.1) Eosinophils # (Auto) 0.0 x10^3/uL (0.0-0.7) Basophils # (Auto) 0.1 x10^3/uL (0.0-0.2) Segmented Neutrophils % 69 % (35-66) Band Neutrophils % 8 % (0-9) Lymphocytes % 16 % (24-48) Monocytes % 7 % (0-10) Platelet Estimate Adequate (ADEQUATE) Prothrombin Time 14.9 SEC (11.7-14.0) Prothromb Time International Ratio 1.2 (0.8-1.1) Activated Partial Thromboplast Time 31 SEC (24-38) Sodium Level 139 mmol/L (136-145) Potassium Level 3.7 mmol/L (3.5-5.1) Chloride Level 96 mmol/L (98-107) Carbon Dioxide Level 28 mmol/L (21-32) Anion Gap 15 (6-14) Blood Urea Nitrogen 17 mg/dL (7-20) Creatinine 1.1 mg/dL (0.6-1.0) Estimated GFR (Cockcroft-Gault) 50.2 BUN/Creatinine Ratio 15 (6-20) Glucose Level 153 mg/dL (70-99) Lactic Acid Level 2.0 mmol/L (0.4-2.0) 1.3 mmol/L (0.4-2.0) Calcium Level 9.0 mg/dL (8.5-10.1) Magnesium Level 1.8 mg/dL (1.8-2.4) Total Bilirubin 0.5 mg/dL (0.2-1.0) Aspartate Amino Transf (AST/SGOT) 71 U/L (15-37) Alanine Aminotransferase (ALT/SGPT) 80 U/L (14-59) Alkaline Phosphatase 71 U/L (46-116) Ammonia < 10 mcmol/L (11-34) Creatine Kinase 336 U/L (26-192) Troponin I Quantitative < 0.017 ng/mL (0.000-0.055) MK-[id number]-Type Natriuretic Peptide 533 pg/mL (0-124) Total Protein 9.5 g/dL (6.4-8.2) Albumin 4.1 g/dL (3.4-5.0) Albumin/Globulin Ratio 0.8 (1.0-1.7) Lipase 115 U/L (73-393) Test 09/15/19 06:57 09/15/19 07:49 09/15/19 11:31 09/15/19 16:53 White Blood Count 12.6 x10^3/uL (4.0-11.0) Red Blood Count 3.35 x10^6/uL (3.50-5.40) Hemoglobin 10.3 g/dL (12.0-15.5) Hematocrit 31.1 % (36.0-47.0) Mean Corpuscular Volume 93 fL (79-100) Mean Corpuscular Hemoglobin 31 pg (25-35) Mean Corpuscular Hemoglobin Concent 33 g/dL (31-37) Red Cell Distribution Width 13.8 % (11.5-14.5) Platelet Count 213 x10^3/uL (140-400) Neutrophils (%) (Auto) 72 % (31-73) Lymphocytes (%) (Auto) 19 % (24-48) Monocytes (%) (Auto) 9 % (0-9) Eosinophils (%) (Auto) 0 % (0-3) Basophils (%) (Auto) 0 % (0-3) Neutrophils # (Auto) 9.1 x10^3/uL (1.8-7.7) Lymphocytes # (Auto) 2.3 x10^3/uL (1.0-4.8) Monocytes # (Auto) 1.1 x10^3/uL (0.0-1.1) Eosinophils # (Auto) 0.0 x10^3/uL (0.0-0.7) Basophils # (Auto) 0.0 x10^3/uL (0.0-0.2) Erythrocyte Sedimentation Rate 75 (0-25) Sodium Level 143 mmol/L (136-145) Potassium Level 3.4 mmol/L (3.5-5.1) Chloride Level 106 mmol/L (98-107) Carbon Dioxide Level 27 mmol/L (21-32) Anion Gap 10 (6-14) Blood Urea Nitrogen 13 mg/dL (7-20) Creatinine 0.9 mg/dL (0.6-1.0) Estimated GFR (Cockcroft-Gault) 76.5 BUN/Creatinine Ratio 14 (6-20) Glucose Level 106 mg/dL (70-99) Calcium Level 7.3 mg/dL (8.5-10.1) Magnesium Level 1.8 mg/dL (1.8-2.4) Total Bilirubin 0.3 mg/dL (0.2-1.0) Direct Bilirubin 0.1 mg/dL (0.0-0.2) Aspartate Amino Transf (AST/SGOT) 48 U/L (15-37) Alanine Aminotransferase (ALT/SGPT) 62 U/L (14-59) Alkaline Phosphatase 53 U/L (46-116) C-Reactive Protein, Quantitative 241.6 mg/L (0-3.3) Total Protein 6.8 g/dL (6.4-8.2) Albumin 2.7 g/dL (3.4-5.0) Albumin/Globulin Ratio 0.7 (1.0-1.7) Vitamin B12 Level 821 pg/mL (247-911) Thyroid Stimulating Hormone (TSH) 0.852 uIU/mL (0.358-3.74) Treponema pallidum Antibody Nonreactive (Nonreactive) Glucose (Fingerstick) 97 mg/dL (70-99) 82 mg/dL (70-99) 86 mg/dL (70-99) Test 09/15/19 21:11 09/16/19 07:32 09/16/19 11:46 Glucose (Fingerstick) 91 mg/dL (70-99) 89 mg/dL (70-99) 100 mg/dL (70-99) Laboratory Tests Test 09/15/19 16:53 09/15/19 21:11 09/16/19 07:32 09/16/19 11:46 Glucose (Fingerstick) 86 mg/dL (70-99) 91 mg/dL (70-99) 89 mg/dL (70-99) 100 mg/dL (70-99) Microbiology 09/14/19 Blood Culture - Preliminary, Resulted NO GROWTH AFTER 1 DAY Medications Current Medications Sodium Chloride 1,000 ml @ 1,000 mls/hr Q1H IV Last administered on 09/14/19at 17:05; Start 09/14/19 at 16:34; Stop 09/14/19 at 17:33; Status DC Acetaminophen (Tylenol Supp) 650 mg 1X ONCE DC Last administered on 09/14/19at 17:05; Start 09/14/19 at 16:45; Stop 09/14/19 at 16:53; Status DC Sodium Chloride 1,000 ml @ 2,000 mls/hr Q1H IV ; Start 09/14/19 at 17:30; Stop 09/14/19 at 18:13; Status DC Piperacillin Sod/ Tazobactam Sod 3.375 gm/Sodium Chloride 50 ml @ 100 mls/hr 1X ONCE IV Last administered on 09/14/19at 18:23; Start 09/14/19 at 17:30; Stop 09/14/19 at 17:59; Status DC Iohexol (Omnipaque 350 Mg/ml) 60 ml 1X ONCE IV Last administered on 09/14/19at 17:43; Start 09/14/19 at 17:30; Stop 09/14/19 at 17:31; Status DC Sodium Chloride 1,000 ml @ 1,000 mls/hr 1X ONCE IV Last administered on 09/14/19at 18:24; Start 09/14/19 at 18:15; Stop 09/14/19 at 19:14; Status DC Acetaminophen (Tylenol) 1,000 mg 1X ONCE PO Last administered on 09/14/19at 18:51; Start 09/14/19 at 18:30; Stop 09/14/19 at 18:31; Status DC Ibuprofen (Motrin) 800 mg 1X ONCE PO Last administered on 09/14/19 18:51; Start 09/14/19 at 18:30; Stop 09/14/19 at 18:31; Status DC Ceftriaxone Sodium (Rocephin) 2 gm 1X ONCE IVP Last administered on 09/14/19 19:33; Start 09/14/19 at 19:00; Stop 09/14/19 at 19:03; Status DC Vancomycin HCl 250 ml @ 250 mls/hr 1X ONCE IV ; Start 09/14/19 at 19:00; Stop 09/14/19 at 19:59; Status UNV Vancomycin HCl 1.75 gm/Sodium Chloride 500 ml @ 250 mls/hr 1X ONCE IV Last administered on 09/14/19 19:41; Start 09/14/19 at 19:15; Stop 09/14/19 at 21:14; Status DC Ondansetron HCl (Zofran) 4 mg PRN Q8HRS PRN IV NAUSEA/VOMITING Last administered on 09/14/19 19:49; Start 09/14/19 at 19:30; Stop 09/15/19 at 19:29; Status DC Morphine Sulfate (Morphine Sulfate) 2 mg PRN Q2HR PRN IV PAIN Last administered on 09/15/19 18:47; Start 09/14/19 at 19:30; Stop 09/15/19 at 19:29; Status DC Acetaminophen (Tylenol) 650 mg PRN Q4HRS PRN PO FEVER; Start 09/14/19 at 19:30; Stop 09/15/19 at 19:29; Status DC Sodium Chloride 1,000 ml @ 100 mls/hr Q10H IV Last administered on 09/16/19 05:30; Start 09/14/19 at 23:30 Al Hydroxide/Mg Hydroxide (Mylanta Plus Xs) 30 ml PRN DAILY PRN PO HEARTBURN / GAS; Start 09/14/19 at 22:30 Vancomycin HCl (Vanco Per Pharmacy) 1 each PRN DAILY PRN MC SEE COMMENTS Last administered on 09/15/19 16:00; Start 09/14/19 at 22:45 Ceftriaxone Sodium (Rocephin) 2 gm Q24H IVP ; Start 09/14/19 at 23:00; Stop 09/14/19 at 22:43; Status DC Ceftriaxone Sodium (Rocephin) 2 gm Q24H IVP Last administered on 09/15/19at 18:42; Start 09/15/19 at 19:00 Insulin Human Lispro (HumaLOG) 0-5 UNITS TIDWMEALS SQ ; Start 09/15/19 at 08:00 Dextrose (Dextrose 50%-Water Syringe) 12.5 gm PRN Q15MIN PRN IV SEE COMMENTS; Start 09/14/19 at 23:00 Dextrose (Iv Dextrose 5%) 250 ml PRN Q15MIN PRN IV SEE COMMENTS; Start 09/14/19 at 23:00 Vancomycin HCl 1 gm/Sodium Chloride 250 ml @ 250 mls/hr Q24H IV Last administered on 09/15/19at 20:06; Start 09/15/19 at 20:00 Vancomycin HCl (Vancomycin Trough Level) 1 each 1X ONCE MC ; Start 09/16/19 at 19:30; Stop 09/16/19 at 19:31 Aspirin (Ecotrin) 81 mg DAILY PO Last administered on 09/16/19at 09:03; Start 09/15/19 at 12:00 Atorvastatin Calcium (Lipitor) 40 mg QHS PO ; Start 09/16/19 at 21:00 Levetiracetam (Keppra) 500 mg BID PO Last administered on 09/16/19at 09:03; Start 09/15/19 at 12:00 Levothyroxine Sodium (Synthroid) 112 mcg DAILY PO Last administered on 09/16/19at 09:03; Start 09/15/19 at 12:00 Sertraline HCl (Zoloft) 100 mg DAILY PO Last administered on 09/16/19 09:04; Start 09/15/19 at 12:00 Potassium Chloride (Klor-Con) 40 meq 1X ONCE PO Last administered on 09/15/19at 18:42; Start 09/15/19 at 17:00; Stop 09/15/19 at 17:01; Status DC Ondansetron HCl (Zofran) 4 mg PRN Q6HRS PRN IVP NAUSEA/VOMITING Last administered on 09/16/19at 03:56; Start 09/15/19 at 20:15 Morphine Sulfate (Morphine Sulfate) 2 mg PRN Q2HR PRN IV PAIN Last administered on 09/16/19at 07:45; Start 09/15/19 at 20:15 Oxycodone/ Acetaminophen (Percocet 5/325) 1 tab PRN Q6HRS PRN PO PAIN Last administered on 09/16/19at 09:57; Start 09/16/19 at 05:30 Lactobacillus Rhamnosus (Culturelle) 1 cap BID PO ; Start 09/16/19 at 21:00 Active Scripts Active Reported Aspirin Ec (Aspirin) 81 Mg Tablet.dr 1 Tab PO DAILY Levothyroxine Sodium 112 Mcg Tablet 1 Tab PO DAILY Multi Vitamin Daily (Multivitamin) 1 Each Tablet 1 Tab PO DAILY 30 Days Fish Oil 1,000 Mg Softgel ([place]-3 Fatty Acids/Fish Oil) 1 Each Capsule 1 Cap PO DAILY 30 Days Ranitidine Hcl 300 Mg Tablet 1 Tab PO QHS Pazeo (Olopatadine HCl) 2.5 Ml Drops 2.5 Ml OP DAILY Losartan-Hctz 50-12.5 Mg Tab (Losartan/Hydrochlorothiazide) 1 Each Tablet 1 Tab PO DAILY Levetiracetam 500 Mg Tablet 1 Tab PO BID Metformin Hcl Er (Metformin Hcl) 500 Mg Tab.er.24h 500 Mg PO BIDWMEALS Atenolol 50 Mg Tablet 1 Tab PO HS Diphenhydramine Hcl 25 Mg Tablet 25 Mg PO PRN PRN Loratadine 10 Mg Tab.rapdis 1 Tab PO DAILY 30 Days Baclofen 10 Mg Tablet 1 Tab PO BID Isosorbide Mononitrate Er (Isosorbide Mononitrate) 30 Mg Tab.er.24h 1 Tab PO DAILY Zoloft (Sertraline Hcl) 100 Mg Tablet 1 Tab PO DAILY Atorvastatin Calcium 40 Mg Tablet 1 Tab PO DAILY Gabapentin 600 Mg Tablet 600 Mg PO TID Vitals/I & O Vital Sign - Last 24 Hours 09/15/19 09/15/19 09/15/19 09/15/19 13:23 13:53 15:00 18:47 Temp 98.4 98.4 Pulse 110 Resp 18 18 18 18 B/P (MAP) 143/89 (107) Pulse Ox 93 O2 Delivery Nasal Cannula Nasal Cannula Nasal Cannula Nasal Cannula O2 Flow Rate 3.0 2.0 3.0 09/15/19 09/15/19 09/15/1920 19:57 20:00 21:13 21:43 Temp 98.9 98.9 Pulse 101 Resp 20 16 16 B/P (MAP) 121/81 (94) Pulse Ox 92 92 92 O2 Delivery Nasal Cannula Nasal Cannula Nasal Cannula Nasal Cannula O2 Flow Rate 2.0 2.0 2.0 2.0 09/15/19 09/16/19 09/16/19 09/16/19 23:30 00:16 00:46 03:10 Temp 98.7 98.4 98.7 98.4 Pulse 96 92 Resp 16 16 16 16 B/P (MAP) 121/77 (92) 118/72 (87) Pulse Ox 91 95 O2 Delivery Nasal Cannula Nasal Cannula Nasal Cannula Nasal Cannula O2 Flow Rate 2.0 2.0 2.0 2.0 09/16/19 09/16/19 09/16/19 09/16/19 03:16 03:46 07:00 07:45 Temp 98.0 98.0 Pulse 88 Resp 24 16 14 18 B/P (MAP) 119/83 (95) Pulse Ox 91 94 91 O2 Delivery Nasal Cannula Nasal Cannula Nasal Cannula O2 Flow Rate 2.0 2.0 2.0 09/16/19 09/16/19 09/16/19 09/16/19 08:00 08:15 09:57 11:00 Resp 19 19 18 Pulse Ox 91 91 93 O2 Delivery Nasal Cannula Nasal Cannula Nasal Cannula Nasal Cannula O2 Flow Rate 2.0 2.0 2.0 2.0 09/16/19 11:00 Temp 97.5 97.5 Pulse 75 Resp 14 B/P (MAP) 119/78 (92) Pulse Ox 93 O2 Delivery Nasal Cannula O2 Flow Rate 2.0 Intake and Output 09/15/19 09/15/19 09/16/19 15:00 23:00 07:00 Intake Total 200 ml 300 ml 800 ml Balance 200 ml 300 ml 800 ml LAY BUSCH MD Sep 16, 2019 13:14
[2019-09-16 15:00] VITALS: BP 120/73
[2019-09-16] MEDS: cefTRIAXone IV Push 2 GM VIAL. IVP SCH (18:18)
[2019-09-16 19:47] VITALS: BP 142/85
[2019-09-16 20:09] LABS: CREATININE 0.7 mg/dL (0.6-1.0); GFR 102.3
[2019-09-16 20:15] LABS: VANC TR 4.3 mcg/mL (10.0-20.0)
[2019-09-16] MEDS: LACTOBACILLUS RHAMNOSUS GG 1 CAPSULE. PO SCH (20:49)
[2019-09-16] MEDS: ATORVASTATIN CALCIUM 40 MG TABLET. PO SCH (20:49)
[2019-09-16] MEDS: VANCOMYCIN 1 GM in IV NORMAL SALINE 250ML 250 ML IV SCH (22:39)
[2019-09-16 23:17] VITALS: BP 131/77
[2019-09-17] MEDS: IV NORMAL SALINE 1000ML BAG 1,000 ML IV SCH ×3 (01:30→21:28)
[2019-09-17] MEDS: oxyCODONE/APAP 5/325 1 TAB TABLET PO PRN ×4 (03:36→21:27)
[2019-09-17 03:44] VITALS: BP 132/84
[2019-09-17 07:20] VITALS: BP 128/78
--- NOTE | 2019-09-17 07:51 | PDOC ---
PROGRESS NOTES Chief Complaint Chief Complaint A/P: Acute toxic and metabolic encephalopathy Sepsis, POA Presumptive UTI Hx of Brain Tumor on Seizure ppx HTN DM Hypothyroidism GERD PLAN admit to tele bed neuro checks q 4 hrs continue empiric Rocephin and Vanc check B12, RPR, TSH, ESR, CRP Home medicines reconciled IVF fluids for now NPO status till cleared by speech neuro consulted if LP negative and still altered, will consider MRI brain full code scds for dvt ppx (hold heparin since LP in AM) plan of care updated to son History of Present Illness History of Present Illness 64 year old BF with hx of HTN, HLD, GERD, DM, prior brain tumor sx on keppra for seizur ppx who is from [facility] visiting her daughter and baby here in [place]. patient seen last in her normal state around 2 pm yesterday and found by her daughter this AM confused since this AM per son who was at the bedside providing as much history as he can. he also notes that patient was in bed most of the day yesterday. noted temp of 102.2 upon arrival. patient appears very lethargic and answers questions minimally. no reported cough, dysuria, chest pain, sob, nausea vomiting diarrhea. no reported illicit drug use. has had adequate PO intake per son. patient usually more alert and awake and per son, this is not her normal self. no prior hx of stroke. no reported seizure activity per family. takes all medications as prescribed. LP attempted twice in ED and unsuccessful. in light of AMS and fever, VANC and Rocephin started empirically. blood and urine cultures ordered. 09/15: WBC noted to be 17k. CT head negative 09/16: She is mentating better today. No LP indicated. Awaiting final urine cultures. Urine with e. coli. Awaiting sensitivities. She is feeling more alert. No CP or SOB. Headache resolved. Vitals Vitals Vital Signs Date Time Temp Pulse Resp B/P (MAP) Pulse Ox O2 Delivery O2 Flow Rate FiO2 09/17/19 05:48 94 Nasal Cannula 2.0 09/17/19 03:44 98.3 78 16 132/84 (100) 98.3 Physical Exam Physical Exam GENERAL: confused, lethargic HEENT: Head normocephalic, atraumatic. NECK: Supple LUNGS: Clear to auscultation. HEART: RRR, S1, S2 present, pulses intact ABDOMEN: Soft, positive bowel sounds. EXTREMITIES: No cyanosis or edema. NEUROLOGIC: patient altered, normal pupils. does not follow commands PSYCHIATRIC: Normal affect, normal mood. SKIN: No ulceration. Labs LABS Laboratory Tests Test 09/16/19 11:46 09/16/19 16:48 09/16/19 19:49 09/16/19 20:10 Glucose (Fingerstick) 100 mg/dL (70-99) 111 mg/dL (70-99) 103 mg/dL (70-99) Creatinine 0.7 mg/dL (0.6-1.0) Estimated GFR (Cockcroft-Gault) 102.3 Vancomycin Level Trough 4.3 mcg/mL (10.0-20.0) Vancomycin Last Dose Date 09/15/19 Vancomycin Last Dose Time 1999 Assessment and Plan Assessmemt and Plan Problems Medical Problems: (1) Altered level of consciousness Status: Acute (2) Fever Status: Acute (3) SIRS (systemic inflammatory response syndrome) Status: Acute Comment Review of Relevant I have reviewed the following items rhonda (where applicable) has been applied. Labs Laboratory Tests Test 09/15/19 11:31 09/15/19 16:53 09/15/19 21:11 09/16/19 07:32 Glucose (Fingerstick) 82 mg/dL (70-99) 86 mg/dL (70-99) 91 mg/dL (70-99) 89 mg/dL (70-99) Test 09/16/19 11:46 09/16/19 16:48 09/16/19 19:49 09/16/19 20:10 Glucose (Fingerstick) 100 mg/dL (70-99) 111 mg/dL (70-99) 103 mg/dL (70-99) Creatinine 0.7 mg/dL (0.6-1.0) Estimated GFR (Cockcroft-Gault) 102.3 Vancomycin Level Trough 4.3 mcg/mL (10.0-20.0) Vancomycin Last Dose Date 09/15/19 Vancomycin Last Dose Time 1999 Laboratory Tests Test 09/16/19 11:46 09/16/19 16:48 09/16/19 19:49 09/16/19 20:10 Glucose (Fingerstick) 100 mg/dL (70-99) 111 mg/dL (70-99) 103 mg/dL (70-99) Creatinine 0.7 mg/dL (0.6-1.0) Estimated GFR (Cockcroft-Gault) 102.3 Vancomycin Level Trough 4.3 mcg/mL (10.0-20.0) Vancomycin Last Dose Date 09/15/19 Vancomycin Last Dose Time 1999 Microbiology 09/14/19 Blood Culture - Preliminary, Resulted NO GROWTH AFTER 2 DAYS 09/14/19 Urine Culture - Preliminary, Resulted 09/14/19 Urine Culture Result 1 (ELIZABETH) - Preliminary, Resulted Medications Current Medications Sodium Chloride 1,000 ml @ 1,000 mls/hr Q1H IV Last administered on 09/14/19at 17:05; Start 09/14/19 at 16:34; Stop 09/14/19 at 17:33; Status DC Acetaminophen (Tylenol Supp) 650 mg 1X ONCE AR Last administered on 09/14/19at 17:05; Start 09/14/19 at 16:45; Stop 09/14/19 at 16:53; Status DC Sodium Chloride 1,000 ml @ 2,000 mls/hr Q1H IV ; Start 09/14/19 at 17:30; Stop 09/14/19 at 18:13; Status DC Piperacillin Sod/ Tazobactam Sod 3.375 gm/Sodium Chloride 50 ml @ 100 mls/hr 1X ONCE IV Last administered on 09/14/19at 18:23; Start 09/14/19 at 17:30; Stop 09/14/19 at 17:59; Status DC Iohexol (Omnipaque 350 Mg/ml) 60 ml 1X ONCE IV Last administered on 09/14/19at 17:43; Start 09/14/19 at 17:30; Stop 09/14/19 at 17:31; Status DC Sodium Chloride 1,000 ml @ 1,000 mls/hr 1X ONCE IV Last administered on 09/14/19at 18:24; Start 09/14/19 at 18:15; Stop 09/14/19 at 19:14; Status DC Acetaminophen (Tylenol) 1,000 mg 1X ONCE PO Last administered on 09/14/19at 18:51; Start 09/14/19 at 18:30; Stop 09/14/19 at 18:31; Status DC Ibuprofen (Motrin) 800 mg 1X ONCE PO Last administered on 09/14/19at 18:51; Start 09/14/19 at 18:30; Stop 09/14/19 at 18:31; Status DC Ceftriaxone Sodium (Rocephin) 2 gm 1X ONCE IVP Last administered on 09/14/19at 19:33; Start 09/14/19 at 19:00; Stop 09/14/19 at 19:03; Status DC Vancomycin HCl 250 ml @ 250 mls/hr 1X ONCE IV ; Start 09/14/19 at 19:00; Stop 09/14/19 at 19:59; Status UNV Vancomycin HCl 1.75 gm/Sodium Chloride 500 ml @ 250 mls/hr 1X ONCE IV Last administered on 09/14/19at 19:41; Start 09/14/19 at 19:15; Stop 09/14/19 at 21:14; Status DC Ondansetron HCl (Zofran) 4 mg PRN Q8HRS PRN IV NAUSEA/VOMITING Last administered on 09/14/19at 19:49; Start 09/14/19 at 19:30; Stop 09/15/19 at 19:29; Status DC Morphine Sulfate (Morphine Sulfate) 2 mg PRN Q2HR PRN IV PAIN Last administered on 09/15/19at 18:47; Start 09/14/19 at 19:30; Stop 09/15/19 at 19:29; Status DC Acetaminophen (Tylenol) 650 mg PRN Q4HRS PRN PO FEVER; Start 09/14/19 at 19:30; Stop 09/15/19 at 19:29; Status DC Sodium Chloride 1,000 ml @ 100 mls/hr Q10H IV Last administered on 09/17/19at 01:30; Start 09/14/19 at 23:30 Al Hydroxide/Mg Hydroxide (Mylanta Plus Xs) 30 ml PRN DAILY PRN PO HEARTBURN / GAS; Start 09/14/19 at 22:30 Vancomycin HCl (Vanco Per Pharmacy) 1 each PRN DAILY PRN MC SEE COMMENTS Last administered on 09/15/19at 16:00; Start 09/14/19 at 22:45 Ceftriaxone Sodium (Rocephin) 2 gm Q24H IVP ; Start 09/14/19 at 23:00; Stop 09/14/19 at 22:43; Status DC Ceftriaxone Sodium (Rocephin) 2 gm Q24H IVP Last administered on 09/16/19 18:18; Start 09/15/19 at 19:00 Insulin Human Lispro (HumaLOG) 0-5 UNITS TIDWMEALS SQ ; Start 09/15/19 at 08:00 Dextrose (Dextrose 50%-Water Syringe) 12.5 gm PRN Q15MIN PRN IV SEE COMMENTS; Start 09/14/19 at 23:00 Dextrose (Iv Dextrose 5%) 250 ml PRN Q15MIN PRN IV SEE COMMENTS; Start 09/14/19 at 23:00 Vancomycin HCl 1 gm/Sodium Chloride 250 ml @ 250 mls/hr Q24H IV Last administered on 09/15/19 20:06; Start 09/15/19 at 20:00; Stop 09/16/19 at 20:29; Status DC Vancomycin HCl (Vancomycin Trough Level) 1 each 1X ONCE MC Last administered on 09/16/19 19:30; Start 09/16/19 at 19:30; Stop 09/16/19 at 19:31; Status DC Aspirin (Ecotrin) 81 mg DAILY PO Last administered on 09/16/19 09:03; Start 09/15/19 at 12:00 Atorvastatin Calcium (Lipitor) 40 mg QHS PO Last administered on 09/16/19 20:49; Start 09/16/19 at 21:00 Levetiracetam (Keppra) 500 mg BID PO Last administered on 09/16/19 20:49; Start 09/15/19 at 12:00 Levothyroxine Sodium (Synthroid) 112 mcg DAILY PO Last administered on 09/16/19 09:03; Start 09/15/19 at 12:00 Sertraline HCl (Zoloft) 100 mg DAILY PO Last administered on 09/16/19 09:04; Start 09/15/19 at 12:00 Potassium Chloride (Klor-Con) 40 meq 1X ONCE PO Last administered on 09/15/19 18:42; Start 09/15/19 at 17:00; Stop 09/15/19 at 17:01; Status DC Ondansetron HCl (Zofran) 4 mg PRN Q6HRS PRN IVP NAUSEA/VOMITING Last administered on 09/16/19 03:56; Start 09/15/19 at 20:15 Morphine Sulfate (Morphine Sulfate) 2 mg PRN Q2HR PRN IV PAIN Last administered on 09/16/19at 07:45; Start 09/15/19 at 20:15 Oxycodone/ Acetaminophen (Percocet 5/325) 1 tab PRN Q6HRS PRN PO PAIN Last a dministered on 09/17/19at 04:48; Start 09/16/19 at 05:30 Lactobacillus Rhamnosus (Culturelle) 1 cap BID PO Last administered on 09/16/19at 20:49; Start 09/16/19 at 21:00 Vancomycin HCl 1 gm/Sodium Chloride 250 ml @ 250 mls/hr Q12H IV Last administered on 09/16/19at 22:39; Start 09/16/19 at 21:00 Vancomycin HCl (Vancomycin Trough Level) 1 each 1X ONCE MC ; Start 09/18/19 at 08:30; Stop 09/18/19 at 08:31 Active Scripts Active Reported Aspirin Ec (Aspirin) 81 Mg Tablet.dr 1 Tab PO DAILY Levothyroxine Sodium 112 Mcg Tablet 1 Tab PO DAILY Multi Vitamin Daily (Multivitamin) 1 Each Tablet 1 Tab PO DAILY 30 Days Fish Oil 1,000 Mg Softgel (Vadito-3 Fatty Acids/Fish Oil) 1 Each Capsule 1 Cap PO DAILY 30 Days Ranitidine Hcl 300 Mg Tablet 1 Tab PO QHS [place] (Olopatadine HCl) 2.5 Ml Drops 2.5 Ml OP DAILY Losartan-Hctz 50-12.5 Mg Tab (Losartan/Hydrochlorothiazide) 1 Each Tablet 1 Tab PO DAILY Levetiracetam 500 Mg Tablet 1 Tab PO BID Metformin Hcl Er (Metformin Hcl) 500 Mg Tab.er.24h 500 Mg PO BIDWMEALS Atenolol 50 Mg Tablet 1 Tab PO HS Diphenhydramine Hcl 25 Mg Tablet 25 Mg PO PRN PRN Loratadine 10 Mg Tab.rapdis 1 Tab PO DAILY 30 Days Baclofen 10 Mg Tablet 1 Tab PO BID Isosorbide Mononitrate Er (Isosorbide Mononitrate) 30 Mg Tab.er.24h 1 Tab PO D AILY Zoloft (Sertraline Hcl) 100 Mg Tablet 1 Tab PO DAILY Atorvastatin Calcium 40 Mg Tablet 1 Tab PO DAILY Gabapentin 600 Mg Tablet 600 Mg PO TID Vitals/I & O Vital Sign - Last 24 Hours 09/16/19 09/16/19 09/16/19 09/16/19 08:00 08:15 09:57 11:00 Resp 19 19 18 Pulse Ox 91 91 93 O2 Delivery Nasal Cannula Nasal Cannula Nasal Cannula Nasal Cannula O2 Flow Rate 2.0 2.0 2.0 2.0 09/16/19 09/16/19 09/16/19 09/16/19 11:00 15:00 19:47 20:00 Temp 97.5 97.6 98.3 97.5 97.6 98.3 Pulse 75 69 76 Resp 14 16 18 B/P (MAP) 119/78 (92) 120/73 (89) 142/85 (104) Pulse Ox 93 97 96 O2 Delivery Nasal Cannula Nasal Cannula Nasal Cannula Nasal Cannula O2 Flow Rate 2.0 2.0 2.0 2.0 09/16/19 09/16/19 09/16/19 09/17/19 20:49 21:49 23:17 03:36 Temp 98.7 98.7 Pulse 85 Resp 16 B/P (MAP) 131/77 (95) Pulse Ox 96 96 93 93 O2 Delivery Nasal Cannula Nasal Cannula Room Air Nasal Cannula O2 Flow Rate 2.0 2.0 2.0 09/17/19 09/17/19 03:44 05:48 Temp 98.3 98.3 Pulse 78 Resp 16 B/P (MAP) 132/84 (100) Pulse Ox 94 94 O2 Delivery Nasal Cannula Nasal Cannula O2 Flow Rate 2.0 2.0 Intake and Output 09/16/19 09/16/19 09/17/19 15:00 23:00 07:00 Intake Total 660 ml 100 ml 210 ml Balance 660 ml 100 ml 210 ml HOA DE OLIVEIRA MD Sep 17, 2019 07:51
[2019-09-17] MEDS: INSULIN LISPRO 300 UNITS/3 ML VIAL. SQ SCH ×3 (08:00→17:00)
[2019-09-17] MEDS: VANCOMYCIN 1 GM in IV NORMAL SALINE 250ML 250 ML IV SCH ×2 (09:10→21:33)
[2019-09-17] MEDS: MORPHINE SULFATE 2 MG/ML VIAL. IV PRN (09:10)
[2019-09-17] MEDS: SERTRALINE 50 MG TABLET. PO SCH (09:11)
[2019-09-17] MEDS: ASPIRIN ENTERIC COATED 81 MG TABLET.DR. PO SCH (09:11)
[2019-09-17] MEDS: LEVOTHYROXINE 112 MCG TABLET PO SCH (09:11)
[2019-09-17] MEDS: LACTOBACILLUS RHAMNOSUS GG 1 CAPSULE. PO SCH ×2 (09:11→21:27)
[2019-09-17] MEDS: levETIRAcetam 500 MG TABLET PO SCH ×2 (09:13→21:26)
[2019-09-17 11:42] VITALS: BP 134/79
[2019-09-17] MEDS: ONDANSETRON PF 4 MG/2 ML VIAL. IVP PRN (12:18)
--- NOTE | 2019-09-17 13:31 | PDOC ---
PROGRESS NOTES Assessment Problems Medical Problems: (1) Altered level of consciousness Status: Acute (2) Fever Status: Acute (3) SIRS (systemic inflammatory response syndrome) Status: Acute Systemic inflammatory response syndrome related to urinary tract infection, doubt she has meningitis or encephalitis given rapid improvement. History brain tumor resection, remote seizure history. Plan Continue current antibiotics. Full supportive care Subjective Complains of some lower abdominal and back pain Objective Vital Signs Date Time Temp Pulse Resp B/P (MAP) Pulse Ox O2 Delivery O2 Flow Rate FiO2 09/17/19 13:09 19 97 Nasal Cannula 2.0 09/17/19 11:42 98.4 79 134/79 (97) 98.4 Intake and Output 09/17/19 07:00 Intake Total 970 ml Balance 970 ml Intake Oral 970 ml # Voids 7 # Bowel Movements 3 PHYSICAL EXAM Eyes closed, opens readily, alert. Oriented to time, place and person. PERRL. EOMI. CN: no focal findings. Muscle tone: normal. Muscle strength: 4/5 DTR: 2+ Plantar reflex: flexor Gait: not examined in bed. Sensory exam: no abnormal findings. No cerebellar signs elicited. Review of Relevant I have reviewed the following items rhonda (where applicable) has been applied. Labs Laboratory Tests Test 09/15/19 16:53 09/15/19 21:11 09/16/19 07:32 09/16/19 11:46 Glucose (Fingerstick) 86 mg/dL (70-99) 91 mg/dL (70-99) 89 mg/dL (70-99) 100 mg/dL (70-99) Test 09/16/19 16:48 09/16/19 19:49 09/16/19 20:10 09/17/19 08:19 Glucose (Fingerstick) 111 mg/dL (70-99) 103 mg/dL (70-99) 86 mg/dL (70-99) Creatinine 0.7 mg/dL (0.6-1.0) Estimated GFR (Cockcroft-Gault) 102.3 Vancomycin Level Trough 4.3 mcg/mL (10.0-20.0) Vancomycin Last Dose Date 09/15/19 Vancomycin Last Dose Time 1999 Test 09/17/19 11:02 Glucose (Fingerstick) 160 mg/dL (70-99) Laboratory Tests Test 09/16/19 16:48 09/16/19 19:49 09/16/19 20:10 09/17/19 08:19 Glucose (Fingerstick) 111 mg/dL (70-99) 103 mg/dL (70-99) 86 mg/dL (70-99) Creatinine 0.7 mg/dL (0.6-1.0) Estimated GFR (Cockcroft-Gault) 102.3 Vancomycin Level Trough 4.3 mcg/mL (10.0-20.0) Vancomycin Last Dose Date 09/15/19 Vancomycin Last Dose Time 2000 Test 09/17/19 11:02 Glucose (Fingerstick) 160 mg/dL (70-99) Microbiology 09/14/19 Blood Culture - Preliminary, Resulted NO GROWTH AFTER 2 DAYS 09/14/19 Urine Culture - Preliminary, Resulted 09/14/19 Urine Culture Result 1 (ELIZABETH) - Preliminary, Resulted Medications Current Medications Sodium Chloride 1,000 ml @ 1,000 mls/hr Q1H IV Last administered on 09/14/19at 17:05; Start 09/14/19 at 16:34; Stop 09/14/19 at 17:33; Status DC Acetaminophen (Tylenol Supp) 650 mg 1X ONCE MS Last administered on 09/14/19at 17:05; Start 09/14/19 at 16:45; Stop 09/14/19 at 16:53; Status DC Sodium Chloride 1,000 ml @ 2,000 mls/hr Q1H IV ; Start 09/14/19 at 17:30; Stop 09/14/19 at 18:13; Status DC Piperacillin Sod/ Tazobactam Sod 3.375 gm/Sodium Chloride 50 ml @ 100 mls/hr 1X ONCE IV Last administered on 09/14/19at 18:23; Start 09/14/19 at 17:30; Stop 09/14/19 at 17:59; Status DC Iohexol (Omnipaque 350 Mg/ml) 60 ml 1X ONCE IV Last administered on 09/14/19at 17:43; Start 09/14/19 at 17:30; Stop 09/14/19 at 17:31; Status DC Sodium Chloride 1,000 ml @ 1,000 mls/hr 1X ONCE IV Last administered on 09/14/19at 18:24; Start 09/14/19 at 18:15; Stop 09/14/19 at 19:14; Status DC Acetaminophen (Tylenol) 1,000 mg 1X ONCE PO Last administered on 09/14/19at 18:51; Start 09/14/19 at 18:30; Stop 09/14/19 at 18:31; Status DC Ibuprofen (Motrin) 800 mg 1X ONCE PO Last administered on 09/14/19at 18:51; Start 09/14/19 at 18:30; Stop 09/14/19 at 18:31; Status DC Ceftriaxone Sodium (Rocephin) 2 gm 1X ONCE IVP Last administered on 09/14/19at 19:33; Start 09/14/19 at 19:00; Stop 09/14/19 at 19:03; Status DC Vancomycin HCl 250 ml @ 250 mls/hr 1X ONCE IV ; Start 09/14/19 at 19:00; Stop 09/14/19 at 19:59; Status UNV Vancomycin HCl 1.75 gm/Sodium Chloride 500 ml @ 250 mls/hr 1X ONCE IV Last administered on 09/14/19at 19:41; Start 09/14/19 at 19:15; Stop 09/14/19 at 21:14; Status DC Ondansetron HCl (Zofran) 4 mg PRN Q8HRS PRN IV NAUSEA/VOMITING Last administered on 09/14/19at 19:49; Start 09/14/19 at 19:30; Stop 09/15/19 at 19:29; Status DC Morphine Sulfate (Morphine Sulfate) 2 mg PRN Q2HR PRN IV PAIN Last administered on 09/15/19at 18:47; Start 09/14/19 at 19:30; Stop 09/15/19 at 19:29; Status DC Acetaminophen (Tylenol) 650 mg PRN Q4HRS PRN PO FEVER; Start 09/14/19 at 19:30; Stop 09/15/19 at 19:29; Status DC Sodium Chloride 1,000 ml @ 100 mls/hr Q10H IV Last administered on 09/17/19at 12:12; Start 09/14/19 at 23:30 Al Hydroxide/Mg Hydroxide (Mylanta Plus Xs) 30 ml PRN DAILY PRN PO HEARTBURN / GAS; Start 09/14/19 at 22:30 Vancomycin HCl (Vanco Per Pharmacy) 1 each PRN DAILY PRN MC SEE COMMENTS Last administered on 09/15/19at 16:00; Start 09/14/19 at 22:45 Ceftriaxone Sodium (Rocephin) 2 gm Q24H IVP ; Start 09/14/19 at 23:00; Stop 09/14/19 at 22:43; Status DC Ceftriaxone Sodium (Rocephin) 2 gm Q24H IVP Last administered on 09/16/19at 18:18; Start 09/15/19 at 19:00 Insulin Human Lispro (HumaLOG) 0-5 UNITS TIDWMEALS SQ ; Start 09/15/19 at 08:00 Dextrose (Dextrose 50%-Water Syringe) 12.5 gm PRN Q15MIN PRN IV SEE COMMENTS; Start 09/14/19 at 23:00 Dextrose (Iv Dextrose 5%) 250 ml PRN Q15MIN PRN IV SEE COMMENTS; Start 09/14/19 at 23:00 Vancomycin HCl 1 gm/Sodium Chloride 250 ml @ 250 mls/hr Q24H IV Last administered on 09/15/19at 20:06; Start 09/15/19 at 20:00; Stop 09/16/19 at 20:29; Status DC Vancomycin HCl (Vancomycin Trough Level) 1 each 1X ONCE MC Last administered on 09/16/19at 19:30; Start 09/16/19 at 19:30; Stop 09/16/19 at 19:31; Status DC Aspirin (Ecotrin) 81 mg DAILY PO Last administered on 09/17/19at 09:11; Start 09/15/19 at 12:00 Atorvastatin Calcium (Lipitor) 40 mg QHS PO Last administered on 09/16/19at 20:49; Start 09/16/19 at 21:00 Levetiracetam (Keppra) 500 mg BID PO Last administered on 09/17/19 09:13; Start 09/15/19 at 12:00 Levothyroxine Sodium (Synthroid) 112 mcg DAILY PO Last administered on 09/17/19 09:11; Start 09/15/19 at 12:00 Sertraline HCl (Zoloft) 100 mg DAILY PO Last administered on 09/17/19 09:11; Start 09/15/19 at 12:00 Potassium Chloride (Klor-Con) 40 meq 1X ONCE PO Last administered on 09/15/19at 18:42; Start 09/15/19 at 17:00; Stop 09/15/19 at 17:01; Status DC Ondansetron HCl (Zofran) 4 mg PRN Q6HRS PRN IVP NAUSEA/VOMITING Last administered on 09/17/19at 12:18; Start 09/15/19 at 20:15 Morphine Sulfate (Morphine Sulfate) 2 mg PRN Q2HR PRN IV PAIN Last administered on 09/17/19at 09:10; Start 09/15/19 at 20:15 Oxycodone/ Acetaminophen (Percocet 5/325) 1 tab PRN Q6HRS PRN PO PAIN Last administered on 09/17/19at 12:09; Start 09/16/19 at 05:30 Lactobacillus Rhamnosus (Culturelle) 1 cap BID PO Last administered on 09/17/19at 09:11; Start 09/16/19 at 21:00 Vancomycin HCl 1 gm/Sodium Chloride 250 ml @ 250 mls/hr Q12H IV Last administered on 09/17/19at 09:10; Start 09/16/19 at 21:00 Vancomycin HCl (Vancomycin Trough Level) 1 each 1X ONCE MC ; Start 09/18/19 at 08:30; Stop 09/18/19 at 08:31 Active Scripts Active Reported Aspirin Ec (Aspirin) 81 Mg Tablet.dr 1 Tab PO DAILY Levothyroxine Sodium 112 Mcg Tablet 1 Tab PO DAILY Multi Vitamin Daily (Multivitamin) 1 Each Tablet 1 Tab PO DAILY 30 Days Fish Oil 1,000 Mg Softgel ([place]-3 Fatty Acids/Fish Oil) 1 Each Capsule 1 Cap PO DAILY 30 Days Ranitidine Hcl 300 Mg Tablet 1 Tab PO QHS [place]o (Olopatadine HCl) 2.5 Ml Drops 2.5 Ml OP DAILY Losartan-Hctz 50-12.5 Mg Tab (Losartan/Hydrochlorothiazide) 1 Each Tablet 1 Tab PO DAILY Levetiracetam 500 Mg Tablet 1 Tab PO BID Metformin Hcl Er (Metformin Hcl) 500 Mg Tab.er.24h 500 Mg PO BIDWMEALS Atenolol 50 Mg Tablet 1 Tab PO HS Diphenhydramine Hcl 25 Mg Tablet 25 Mg PO PRN PRN Loratadine 10 Mg Tab.rapdis 1 Tab PO DAILY 30 Days Baclofen 10 Mg Tablet 1 Tab PO BID Isosorbide Mononitrate Er (Isosorbide Mononitrate) 30 Mg Tab.er.24h 1 Tab PO DAILY Zoloft (Sertraline Hcl) 100 Mg Tablet 1 Tab PO DAILY Atorvastatin Calcium 40 Mg Tablet 1 Tab PO DAILY Gabapentin 600 Mg Tablet 600 Mg PO TID Vitals/I & O Vital Sign - Last 24 Hours 09/16/19 09/16/19 09/16/19 09/16/19 15:00 19:47 20:00 20:49 Temp 97.6 98.3 97.6 98.3 Pulse 69 76 Resp 16 18 B/P (MAP) 120/73 (89) 142/85 (104) Pulse Ox 97 96 96 O2 Delivery Nasal Cannula Nasal Cannula Nasal Cannula Nasal Cannula O2 Flow Rate 2.0 2.0 2.0 2.0 09/16/19 09/16/19 09/17/19 09/17/19 21:49 23:17 03:36 03:44 Temp 98.7 98.3 98.7 98.3 Pulse 85 78 Resp 16 16 B/P (MAP) 131/77 (95) 132/84 (100) Pulse Ox 96 93 93 94 O2 Delivery Nasal Cannula Room Air Nasal Cannula Nasal Cannula O2 Flow Rate 2.0 2.0 2.0 09/17/19 09/17/19 09/17/19 09/17/19 05:48 07:20 08:00 09:10 Temp 98.7 98.7 Pulse 90 Resp 18 19 B/P (MAP) 128/78 (95) Pulse Ox 94 97 97 O2 Delivery Nasal Cannula Nasal Cannula Nasal Cannula Nasal Cannula O2 Flow Rate 2.0 2.0 2.0 2.0 09/17/19 09/17/19 09/17/19 09/17/19 09:40 11:42 12:09 13:09 Temp 98.4 98.4 Pulse 79 Resp 1 16 18 19 B/P (MAP) 134/79 (97) Pulse Ox 97 95 97 97 O2 Delivery Nasal Cannula Nasal Cannula Nasal Cannula Nasal Cannula O2 Flow Rate 2.0 2.0 2.0 2.0 Intake and Output 09/16/19 09/16/19 09/17/19 15:00 23:00 07:00 Intake Total 660 ml 100 ml 210 ml Balance 660 ml 100 ml 210 ml LAY BUSCH MD Sep 17, 2019 13:31
[2019-09-17] MEDS: VANCOMYCIN PER PHARMACY MC PRN (14:10)
--- NOTE | 2019-09-17 15:17 | NUR ---
Patient is weak-looking and has poor appetite, glucerna given for supplement.
[2019-09-17 15:20] VITALS: BP 132/76
[2019-09-17] MEDS: cefTRIAXone IV Push 2 GM VIAL. IVP SCH (18:32)
[2019-09-17 19:00] VITALS: BP 149/82
[2019-09-17] MEDS: ATORVASTATIN CALCIUM 40 MG TABLET. PO SCH (21:26)
[2019-09-17 23:17] VITALS: BP 122/70
[2019-09-18] MEDS: MORPHINE SULFATE 2 MG/ML VIAL. IV PRN ×3 (02:14→20:36)
[2019-09-18 03:19] VITALS: BP 147/74
[2019-09-18] MEDS: oxyCODONE/APAP 5/325 1 TAB TABLET PO PRN ×3 (05:46→22:23)
[2019-09-18] MEDS: IV NORMAL SALINE 1000ML BAG 1,000 ML IV SCH ×3 (05:47→23:32)
[2019-09-18 07:00] VITALS: BP 132/77
[2019-09-18] MEDS: INSULIN LISPRO 300 UNITS/3 ML VIAL. SQ SCH ×3 (07:46→16:58)
[2019-09-18] MEDS: LEVOTHYROXINE 112 MCG TABLET PO SCH (07:47)
--- NOTE | 2019-09-18 08:56 | PDOC ---
PROGRESS NOTES Assessment Problems Medical Problems: (1) Altered level of consciousness Status: Acute (2) Fever Status: Acute (3) SIRS (systemic inflammatory response syndrome) Status: Acute Systemic inflammatory response syndrome related to urinary tract infection, doubt she has meningitis or encephalitis given rapid improvement. E. coli grew out History brain tumor resection, remote seizure history. Plan Continue current antibiotics. Full supportive care Subjective Still has some abdominal pain Objective Vital Signs Date Time Temp Pulse Resp B/P (MAP) Pulse Ox O2 Delivery O2 Flow Rate FiO2 09/18/19 07:00 97.9 63 17 132/77 (95) 91 Nasal Cannula 2.0 97.9 Intake and Output 09/18/19 07:00 Intake Total 2310 ml Output Total 1050 ml Balance 1260 ml Intake Oral 1060 ml IV Total 1250 ml Output Urine Total 1050 ml # Voids 7 # Bowel Movements 1 PHYSICAL EXAM Alert. Oriented to time, place and person. PERRL. EOMI. CN: no focal findings. Muscle tone: normal. Muscle strength: 4/5 DTR: 2+ Plantar reflex: flexor Gait: not examined in bed. Sensory exam: no abnormal findings. No cerebellar signs elicited. Review of Relevant I have reviewed the following items rhonda (where applicable) has been applied. Labs Laboratory Tests Test 09/16/19 11:46 09/16/19 16:48 09/16/19 19:49 09/16/19 20:10 Glucose (Fingerstick) 100 mg/dL (70-99) 111 mg/dL (70-99) 103 mg/dL (70-99) Creatinine 0.7 mg/dL (0.6-1.0) Estimated GFR (Cockcroft-Gault) 102.3 Vancomycin Level Trough 4.3 mcg/mL (10.0-20.0) Vancomycin Last Dose Date 09/15/19 Vancomycin Last Dose Time 1999 Test 09/17/19 08:19 09/17/19 11:02 09/17/19 15:12 09/17/19 20:33 Glucose (Fingerstick) 86 mg/dL (70-99) 160 mg/dL (70-99) 123 mg/dL (70-99) 124 mg/dL (70-99) Test 09/18/19 07:11 Glucose (Fingerstick) 109 mg/dL (70-99) Laboratory Tests Test 09/17/19 11:02 09/17/19 15:12 09/17/19 20:33 09/18/19 07:11 Glucose (Fingerstick) 160 mg/dL (70-99) 123 mg/dL (70-99) 124 mg/dL (70-99) 109 mg/dL (70-99) Microbiology 09/14/19 Blood Culture - Preliminary, Resulted NO GROWTH AFTER 3 DAYS 09/14/19 Urine Culture - Preliminary, Resulted 09/14/19 Urine Culture Result 1 (ELIZABETH) - Preliminary, Resulted Medications Current Medications Sodium Chloride 1,000 ml @ 1,000 mls/hr Q1H IV Last administered on 09/14/19at 17:05; Start 09/14/19 at 16:34; Stop 09/14/19 at 17:33; Status DC Acetaminophen (Tylenol Supp) 650 mg 1X ONCE [place] Last administered on 09/14/19at 17:05; Start 09/14/19 at 16:45; Stop 09/14/19 at 16:53; Status DC Sodium Chloride 1,000 ml @ 2,000 mls/hr Q1H IV ; Start 09/14/19 at 17:30; Stop 09/14/19 at 18:13; Status DC Piperacillin Sod/ Tazobactam Sod 3.375 gm/Sodium Chloride 50 ml @ 100 mls/hr 1X ONCE IV Last administered on 09/14/19at 18:23; Start 09/14/19 at 17:30; Stop 09/14/19 at 17:59; Status DC Iohexol (Omnipaque 350 Mg/ml) 60 ml 1X ONCE IV Last administered on 09/14/19at 17:43; Start 09/14/19 at 17:30; Stop 09/14/19 at 17:31; Status DC Sodium Chloride 1,000 ml @ 1,000 mls/hr 1X ONCE IV Last administered on 09/14/19at 18:24; Start 09/14/19 at 18:15; Stop 09/14/19 at 19:14; Status DC Acetaminophen (Tylenol) 1,000 mg 1X ONCE PO Last administered on 09/14/19at 18:51; Start 09/14/19 at 18:30; Stop 09/14/19 at 18:31; Status DC Ibuprofen (Motrin) 800 mg 1X ONCE PO Last administered on 09/14/19at 18:51; Start 09/14/19 at 18:30; Stop 09/14/19 at 18:31; Status DC Ceftriaxone Sodium (Rocephin) 2 gm 1X ONCE IVP Last administered on 09/14/19at 19:33; Start 09/14/19 at 19:00; Stop 09/14/19 at 19:03; Status DC Vancomycin HCl 250 ml @ 250 mls/hr 1X ONCE IV ; Start 09/14/19 at 19:00; Stop 09/14/19 at 19:59; Status UNV Vancomycin HCl 1.75 gm/Sodium Chloride 500 ml @ 250 mls/hr 1X ONCE IV Last administered on 09/14/19at 19:41; Start 09/14/19 at 19:15; Stop 09/14/19 at 21:14; Status DC Ondansetron HCl (Zofran) 4 mg PRN Q8HRS PRN IV NAUSEA/VOMITING Last administered on 09/14/19at 19:49; Start 09/14/19 at 19:30; Stop 09/15/19 at 19:29; Status DC Morphine Sulfate (Morphine Sulfate) 2 mg PRN Q2HR PRN IV PAIN Last administered on 09/15/19at 18:47; Start 09/14/19 at 19:30; Stop 09/15/19 at 19:29; Status DC Acetaminophen (Tylenol) 650 mg PRN Q4HRS PRN PO FEVER; Start 09/14/19 at 19:30; Stop 09/15/19 at 19:29; Status DC Sodium Chloride 1,000 ml @ 100 mls/hr Q10H IV Last administered on 09/18/19at 05:47; Start 09/14/19 at 23:30 Al Hydroxide/Mg Hydroxide (Mylanta Plus Xs) 30 ml PRN DAILY PRN PO HEARTBURN / GAS; Start 09/14/19 at 22:30 Vancomycin HCl (Vanco Per Pharmacy) 1 each PRN DAILY PRN MC SEE COMMENTS Last administered on 09/17/19at 14:10; Start 09/14/19 at 22:45 Ceftriaxone Sodium (Rocephin) 2 gm Q24H IVP ; Start 09/14/19 at 23:00; Stop 09/14/19 at 22:43; Status DC Ceftriaxone Sodium (Rocephin) 2 gm Q24H IVP Last administered on 09/17/19 18:32; Start 09/15/19 at 19:00 Insulin Human Lispro (HumaLOG) 0-5 UNITS TIDWMEALS SQ ; Start 09/15/19 at 08:00 Dextrose (Dextrose 50%-Water Syringe) 12.5 gm PRN Q15MIN PRN IV SEE COMMENTS; Start 09/14/19 at 23:00 Dextrose (Iv Dextrose 5%) 250 ml PRN Q15MIN PRN IV SEE COMMENTS; Start 09/14/19 at 23:00 Vancomycin HCl 1 gm/Sodium Chloride 250 ml @ 250 mls/hr Q24H IV Last administered on 09/15/19at 20:06; Start 09/15/19 at 20:00; Stop 09/16/19 at 20:29; Status DC Vancomycin HCl (Vancomycin Trough Level) 1 each 1X ONCE MC Last administered on 09/16/19 19:30; Start 09/16/19 at 19:30; Stop 09/16/19 at 19:31; Status DC Aspirin (Ecotrin) 81 mg DAILY PO Last administered on 09/17/19 09:11; Start 09/15/19 at 12:00 Atorvastatin Calcium (Lipitor) 40 mg QHS PO Last administered on 09/17/19 21:26; Start 09/16/19 at 21:00 Levetiracetam (Keppra) 500 mg BID PO Last administered on 09/17/19 21:26; Start 09/15/19 at 12:00 Levothyroxine Sodium (Synthroid) 112 mcg DAILY PO Last administered on 09/18/19 07:47; Start 09/15/19 at 12:00 Sertraline HCl (Zoloft) 100 mg DAILY PO Last administered on 09/17/19 09:11; Start 09/15/19 at 12:00 Potassium Chloride (Klor-Con) 40 meq 1X ONCE PO Last administered on 09/15/19 18:42; Start 09/15/19 at 17:00; Stop 09/15/19 at 17:01; Status DC Ondansetron HCl (Zofran) 4 mg PRN Q6HRS PRN IVP NAUSEA/VOMITING Last administered on 09/17/19 12:18; Start 09/15/19 at 20:15 Morphine Sulfate (Morphine Sulfate) 2 mg PRN Q2HR PRN IV PAIN Last administered on 09/18/19at 02:14; Start 09/15/19 at 20:15 Oxycodone/ Acetaminophen (Percocet 5/325) 1 tab PRN Q6HRS PRN PO PAIN Last administered on 09/18/19at 05:46; Start 09/16/19 at 05:30 Lactobacillus Rhamnosus (Culturelle) 1 cap BID PO Last administered on 09/17/19at 21:27; Start 09/16/19 at 21:00 Vancomycin HCl 1 gm/Sodium Chloride 250 ml @ 250 mls/hr Q12H IV Last administered on 09/17/19at 21:33; Start 09/16/19 at 21:00 Vancomycin HCl (Vancomycin Trough Level) 1 each 1X ONCE MC ; Start 09/18/19 at 08:30; Stop 09/18/19 at 08:31; Status DC Active Scripts Active Reported Aspirin Ec (Aspirin) 81 Mg Tablet.dr 1 Tab PO DAILY Levothyroxine Sodium 112 Mcg Tablet 1 Tab PO DAILY Multi Vitamin Daily (Multivitamin) 1 Each Tablet 1 Tab PO DAILY 30 Days Fish Oil 1,000 Mg Softgel ([place]-3 Fatty Acids/Fish Oil) 1 Each Capsule 1 Cap PO DAILY 30 Days Ranitidine Hcl 300 Mg Tablet 1 Tab PO QHS [place]azeo (Olopatadine HCl) 2.5 Ml Drops 2.5 Ml OP DAILY Losartan-Hctz 50-12.5 Mg Tab (Losartan/Hydrochlorothiazide) 1 Each Tablet 1 Tab PO DAILY Levetiracetam 500 Mg Tablet 1 Tab PO BID Metformin Hcl Er (Metformin Hcl) 500 Mg Tab.er.24h 500 Mg PO BIDWMEALS Atenolol 50 Mg Tablet 1 Tab PO HS Diphenhydramine Hcl 25 Mg Tablet 25 Mg PO PRN PRN Loratadine 10 Mg Tab.rapdis 1 Tab PO DAILY 30 Days Baclofen 10 Mg Tablet 1 Tab PO BID Isosorbide Mononitrate Er (Isosorbide Mononitrate) 30 Mg Tab.er.24h 1 Tab PO DAILY Zoloft (Sertraline Hcl) 100 Mg Tablet 1 Tab PO DAILY Atorvastatin Calcium 40 Mg Tablet 1 Tab PO DAILY Gabapentin 600 Mg Tablet 600 Mg PO TID Vitals/I & O Vital Sign - Last 24 Hours 09/17/19 09/17/19 09/17/199/20 09:10 09:40 11:42 12:09 Temp 98.4 98.4 Pulse 79 Resp 19 1 16 18 B/P (MAP) 134/79 (97) Pulse Ox 97 97 95 97 O2 Delivery Nasal Cannula Nasal Cannula Nasal Cannula Nasal Cannula O2 Flow Rate 2.0 2.0 2.0 2.0 09/17/19 09/17/19 09/17/19 09/17/19 13:09 15:20 19:00 21:20 Temp 97.5 97.6 97.5 97.6 Pulse 92 89 Resp 19 18 20 B/P (MAP) 132/76 (94) 149/82 (104) Pulse Ox 97 90 97 O2 Delivery Nasal Cannula Nasal Cannula Nasal Cannula Nasal Cannula O2 Flow Rate 2.0 2.0 2.0 3.0 09/17/19 09/17/19 09/17/19 09/18/19 21:27 22:27 23:17 02:14 Temp 98.7 98.7 Pulse 73 Resp 20 18 18 22 B/P (MAP) 122/70 (87) Pulse Ox 92 O2 Delivery Nasal Cannula Nasal Cannula Nasal Cannula Nasal Cannula O2 Flow Rate 2.0 2.0 3.0 2.0 09/18/19 09/18/19 09/18/19 09/18/19 02:44 03:19 05:46 06:46 Temp 98.0 98.0 Pulse 67 Resp 20 18 20 22 B/P (MAP) 147/74 (98) Pulse Ox 90 O2 Delivery Nasal Cannula Nasal Cannula Nasal Cannula Nasal Cannula O2 Flow Rate 2.0 3.0 3.0 2.0 09/18/19 07:00 Temp 97.9 97.9 Pulse 63 Resp 17 B/P (MAP) 132/77 (95) Pulse Ox 91 O2 Delivery Nasal Cannula O2 Flow Rate 2.0 Intake and Output 09/17/19 09/17/19 09/18/19 15:00 23:00 07:00 Intake Total 240 ml 1370 ml 700 ml Output Total 350 ml 300 ml 400 ml Balance -110 ml 1070 ml 300 ml LAY BUSCH MD Sep 18, 2019 08:56
--- NOTE | 2019-09-18 09:17 | NUR ---
SW following. Discussed with RN, pt is from [place], visiting family here. Pt currently requiring 3L o2, IV abx. SW will continue to follow.
--- NOTE | 2019-09-18 09:45 | PDOC ---
PROGRESS NOTES Chief Complaint Chief Complaint A/P: Acute toxic and metabolic encephalopathy Sepsis, POA Presumptive UTI URINE CULTURE RES 1 Preliminary Escherichia coli Hx of Brain Tumor on Seizure ppx HTN DM Hypothyroidism GERD PLAN admit neuro checks q 4 hrs continue empiric Rocephin and D/C Vanc check B12, RPR, TSH, ESR, CRP Home medicines reconciled IVF fluids NPO status till cleared by speech neuro consulted if LP negative and still altered, will consider MRI brain full code scds for dvt ppx (hold heparin since LP in AM) D/W PHARMACIST BY PHONE History of Present Illness History of Present Illness 64 year old BF with hx of HTN, HLD, GERD, DM, prior brain tumor sx on keppra for seizur ppx who is from [facility] visiting her daughter and baby here in [place]. patient seen last in her normal state around 2 pm yesterday and found by her daughter this AM confused since this AM per son who was at the bedside providing as much history as he can. he also notes that patient was in bed most of the day yesterday. noted temp of 102.2 upon arrival. patient appears very lethargic and answers questions minimally. no reported cough, dysuria, chest pain, sob, nausea vomiting diarrhea. no reported illicit drug use. has had adequate PO intake per son. patient usually more alert and awake and per son, this is not her normal self. no prior hx of stroke. no reported seizure activity per family. takes all medications as prescribed. LP attempted twice in ED and unsuccessful. in light of AMS and fever, VANC and Rocephin started empirically. blood and urine cultures ordered. 09/15: WBC noted to be 17k. CT head negative 09/16: She is mentating better today. No LP indicated. Awaiting final urine cultures. Urine with e. coli. Awaiting sensitivities. She is feeling more alert. No CP or SOB. Headache resolved. Vitals Vitals Vital Signs Date Time Temp Pulse Resp B/P (MAP) Pulse Ox O2 Delivery O2 Flow Rate FiO2 09/18/19 07:30 Nasal Cannula 3.0 09/18/19 07:00 97.9 63 17 132/77 (95) 91 97.9 Physical Exam Physical Exam GENERAL: confused, lethargic HEENT: Head normocephalic, atraumatic. NECK: Supple LUNGS: Clear to auscultation. HEART: RRR, S1, S2 present, pulses intact ABDOMEN: Soft, positive bowel sounds. EXTREMITIES: No cyanosis or edema. NEUROLOGIC: patient altered, normal pupils. does not follow commands PSYCHIATRIC: Normal affect, normal mood. SKIN: No ulceration. Labs LABS OURCE: STRA CATH ENTR: 09/14/19-[address]: JUANIS: STR CATH ORDERED: URINE CULTURE Procedure Result URINE CULTURE Preliminary Preliminary report URINE CULTURE RES 1 Preliminary Escherichia coli Greater than 100,000 colony forming units per mL Performed at: DA - [facility] [address], [place], [place] [id number] Communications Project Lead: ROBERTO Worthy MD, Phone: [phone] FINDINGS: CTA neck: Visualized portions of the thoracic aorta are unremarkable. Standard three-vessel aortic arch anatomy. Right common carotid artery is patent without evidence of stenosis, occlusion or aneurysm. Cervical segment of the right internal carotid artery is patent without evidence of stenosis, occlusion or aneurysm. Left common carotid artery is patent without evidence of stenosis, occlusion or aneurysm. Minimal plaque at the origin of the left internal carotid artery without significant stenosis. Right vertebral artery is patent to basilar confluence without evidence of stenosis, occlusion or aneurysm. Left vertebral artery is patent to basilar confluence without evidence of stenosis, occlusion or aneurysm. Moderate centrilobular exam is change noted in the upper lungs. CTA HEAD: Minimal calcified plaque at the cavernous segment of the right internal carotid artery without cement stenosis. Right MCA is patent. Right GEO is patent. Mild calcified plaque at the cavernous segment of the left internal carotid artery without significant stenosis. Left MCA is patent. Left GEO is patent. Basilar artery is patent without evidence of stenosis, occlusion or aneurysm. biomechanical engineer are patent bilaterally. IMPRESSION: 1. No large vessel occlusion. 2. Mild calcified plaque at the origin of the left internal carotid artery without significant stenosis. 3. Minimal calcified plaque at the cavernous segments of the internal carotid arteries bilaterally without significant stenosis. Exposure: One or more of the following in the visualized dose reduction techniques were utilized for this examination: 1. Automated exposure control 2. Adjustment of the MA and/or KV according to patient size 3. Use of iterative of reconstructive technique Electronically signed by: Valentina rCaig MD (09/14/2019 6:09 PM) [id number] DICTATED AND SIGNED BY: VALENTINA CRAIG MD DATE: 09/14/19 1809 Laboratory Tests Test 09/17/19 11:02 09/17/19 15:12 09/17/19 20:33 09/18/19 07:11 Glucose (Fingerstick) 160 mg/dL (70-99) 123 mg/dL (70-99) 124 mg/dL (70-99) 109 mg/dL (70-99) Assessment and Plan Assessmemt and Plan Problems Medical Problems: (1) Altered level of consciousness Status: Acute (2) Fever Status: Acute (3) SIRS (systemic inflammatory response syndrome) Status: Acute Comment Review of Relevant I have reviewed the following items rhonda (where applicable) has been applied. Labs Laboratory Tests Test 09/16/19 11:46 09/16/19 16:48 09/16/19 19:49 09/16/19 20:10 Glucose (Fingerstick) 100 mg/dL (70-99) 111 mg/dL (70-99) 103 mg/dL (70-99) Creatinine 0.7 mg/dL (0.6-1.0) Estimated GFR (Cockcroft-Gault) 102.3 Vancomycin Level Trough 4.3 mcg/mL (10.0-20.0) Vancomycin Last Dose Date 09/15/19 Vancomycin Last Dose Time 1999 Test 09/17/19 08:19 09/17/19 11:02 09/17/19 15:12 09/17/19 20:33 Glucose (Fingerstick) 86 mg/dL (70-99) 160 mg/dL (70-99) 123 mg/dL (70-99) 124 mg/dL (70-99) Test 09/18/19 07:11 Glucose (Fingerstick) 109 mg/dL (70-99) Laboratory Tests Test 09/17/19 11:02 09/17/19 15:12 09/17/19 20:33 09/18/19 07:11 Glucose (Fingerstick) 160 mg/dL (70-99) 123 mg/dL (70-99) 124 mg/dL (70-99) 109 mg/dL (70-99) Microbiology 09/14/19 Blood Culture - Preliminary, Resulted NO GROWTH AFTER 3 DAYS 09/14/19 Urine Culture - Preliminary, Resulted 09/14/19 Urine Culture Result 1 (ELIZABETH) - Preliminary, Resulted Medications Current Medications Sodium Chloride 1,000 ml @ 1,000 mls/hr Q1H IV Last administered on 09/14/19at 17:05; Start 09/14/19 at 16:34; Stop 09/14/19 at 17:33; Status DC Acetaminophen (Tylenol Supp) 650 mg 1X ONCE AR Last administered on 09/14/19at 17:05; Start 09/14/19 at 16:45; Stop 09/14/19 at 16:53; Status DC Sodium Chloride 1,000 ml @ 2,000 mls/hr Q1H IV ; Start 09/14/19 at 17:30; Stop 09/14/19 at 18:13; Status DC Piperacillin Sod/ Tazobactam Sod 3.375 gm/Sodium Chloride 50 ml @ 100 mls/hr 1X ONCE IV Last administered on 09/14/19at 18:23; Start 09/14/19 at 17:30; Stop 09/14/19 at 17:59; Status DC Iohexol (Omnipaque 350 Mg/ml) 60 ml 1X ONCE IV Last administered on 09/14/19at 17:43; Start 09/14/19 at 17:30; Stop 09/14/19 at 17:31; Status DC Sodium Chloride 1,000 ml @ 1,000 mls/hr 1X ONCE IV Last administered on 09/14/19 18:24; Start 09/14/19 at 18:15; Stop 09/14/19 at 19:14; Status DC Acetaminophen (Tylenol) 1,000 mg 1X ONCE PO Last administered on 09/14/19at 18:51; Start 09/14/19 at 18:30; Stop 09/14/19 at 18:31; Status DC Ibuprofen (Motrin) 800 mg 1X ONCE PO Last administered on 09/14/19 18:51; Start 09/14/19 at 18:30; Stop 09/14/19 at 18:31; Status DC Ceftriaxone Sodium (Rocephin) 2 gm 1X ONCE IVP Last administered on 09/14/19 19:33; Start 09/14/19 at 19:00; Stop 09/14/19 at 19:03; Status DC Vancomycin HCl 250 ml @ 250 mls/hr 1X ONCE IV ; Start 09/14/19 at 19:00; Stop 09/14/19 at 19:59; Status UNV Vancomycin HCl 1.75 gm/Sodium Chloride 500 ml @ 250 mls/hr 1X ONCE IV Last administered on 09/14/19 19:41; Start 09/14/19 at 19:15; Stop 09/14/19 at 21:14; Status DC Ondansetron HCl (Zofran) 4 mg PRN Q8HRS PRN IV NAUSEA/VOMITING Last administered on 09/14/19 19:49; Start 09/14/19 at 19:30; Stop 09/15/19 at 19:29; Status DC Morphine Sulfate (Morphine Sulfate) 2 mg PRN Q2HR PRN IV PAIN Last administered on 09/15/19at 18:47; Start 09/14/19 at 19:30; Stop 09/15/19 at 19:29; Status DC Acetaminophen (Tylenol) 650 mg PRN Q4HRS PRN PO FEVER; Start 09/14/19 at 19:30; Stop 09/15/19 at 19:29; Status DC Sodium Chloride 1,000 ml @ 100 mls/hr Q10H IV Last administered on 09/18/19 05:47; Start 09/14/19 at 23:30 Al Hydroxide/Mg Hydroxide (Mylanta Plus Xs) 30 ml PRN DAILY PRN PO HEARTBURN / GAS; Start 09/14/19 at 22:30 Vancomycin HCl (Vanco Per Pharmacy) 1 each PRN DAILY PRN MC SEE COMMENTS Last administered on 09/17/19at 14:10; Start 09/14/19 at 22:45 Ceftriaxone Sodium (Rocephin) 2 gm Q24H IVP ; Start 09/14/19 at 23:00; Stop 09/14/19 at 22:43; Status DC Ceftriaxone Sodium (Rocephin) 2 gm Q24H IVP Last administered on 09/17/19at 18:32; Start 09/15/19 at 19:00 Insulin Human Lispro (HumaLOG) 0-5 UNITS TIDWMEALS SQ ; Start 09/15/19 at 08:00 Dextrose (Dextrose 50%-Water Syringe) 12.5 gm PRN Q15MIN PRN IV SEE COMMENTS; Start 09/14/19 at 23:00 Dextrose (Iv Dextrose 5%) 250 ml PRN Q15MIN PRN IV SEE COMMENTS; Start 09/14/19 at 23:00 Vancomycin HCl 1 gm/Sodium Chloride 250 ml @ 250 mls/hr Q24H IV Last administered on 09/15/19at 20:06; Start 09/15/19 at 20:00; Stop 09/16/19 at 20:29; Status DC Vancomycin HCl (Vancomycin Trough Level) 1 each 1X ONCE MC Last administered on 09/16/19at 19:30; Start 09/16/19 at 19:30; Stop 09/16/19 at 19:31; Status DC Aspirin (Ecotrin) 81 mg DAILY PO Last administered on 09/17/19at 09:11; Start 09/15/19 at 12:00 Atorvastatin Calcium (Lipitor) 40 mg QHS PO Last administered on 09/17/19 21: 26; Start 09/16/19 at 21:00 Levetiracetam (Keppra) 500 mg BID PO Last administered on 09/17/19 21:26; Start 09/15/19 at 12:00 Levothyroxine Sodium (Synthroid) 112 mcg DAILY PO Last administered on 09/18/19 07:47; Start 09/15/19 at 12:00 Sertraline HCl (Zoloft) 100 mg DAILY PO Last administered on 09/17/19 09:11; Start 09/15/19 at 12:00 Potassium Chloride (Klor-Con) 40 meq 1X ONCE PO Last administered on 09/15/19 18:42; Start 09/15/19 at 17:00; Stop 09/15/19 at 17:01; Status DC Ondansetron HCl (Zofran) 4 mg PRN Q6HRS PRN IVP NAUSEA/VOMITING Last administered on 09/17/19 12:18; Start 09/15/19 at 20:15 Morphine Sulfate (Morphine Sulfate) 2 mg PRN Q2HR PRN IV PAIN Last administered on 09/18/19 02:14; Start 09/15/19 at 20:15 Oxycodone/ Acetaminophen (Percocet 5/325) 1 tab PRN Q6HRS PRN PO PAIN Last administered on 09/18/19at 05:46; Start 09/16/19 at 05:30 Lactobacillus Rhamnosus (Culturelle) 1 cap BID PO Last administered on 09/17/19 21:27; Start 09/16/19 at 21:00 Vancomycin HCl 1 gm/Sodium Chloride 250 ml @ 250 mls/hr Q12H IV Last administered on 09/17/19 21:33; Start 09/16/19 at 21:00 Vancomycin HCl (Vancomycin Trough Level) 1 each 1X ONCE MC ; Start 09/18/19 at 08:30; Stop 09/18/19 at 08:31; Status DC Active Scripts Active Reported Aspirin Ec (Aspirin) 81 Mg Tablet.dr 1 Tab PO DAILY Levothyroxine Sodium 112 Mcg Tablet 1 Tab PO DAILY Multi Vitamin Daily (Multivitamin) 1 Each Tablet 1 Tab PO DAILY 30 Days Fish Oil 1,000 Mg Softgel ([place]-3 Fatty Acids/Fish Oil) 1 Each Capsule 1 Cap PO DAILY 30 Days Ranitidine Hcl 300 Mg Tablet 1 Tab PO QHS Pazeo (Olopatadine HCl) 2.5 Ml Drops 2.5 Ml OP DAILY Losartan-Hctz 50-12.5 Mg Tab (Losartan/Hydrochlorothiazide) 1 Each Tablet 1 Tab PO DAILY Levetiracetam 500 Mg Tablet 1 Tab PO BID Metformin Hcl Er (Metformin Hcl) 500 Mg Tab.er.24h 500 Mg PO BIDWMEALS Atenolol 50 Mg Tablet 1 Tab PO HS Diphenhydramine Hcl 25 Mg Tablet 25 Mg PO PRN PRN Loratadine 10 Mg Tab.rapdis 1 Tab PO DAILY 30 Days Baclofen 10 Mg Tablet 1 Tab PO BID Isosorbide Mononitrate Er (Isosorbide Mononitrate) 30 Mg Tab.er.24h 1 Tab PO DAILY Zoloft (Sertraline Hcl) 100 Mg Tablet 1 Tab PO DAILY Atorvastatin Calcium 40 Mg Tablet 1 Tab PO DAILY Gabapentin 600 Mg Tablet 600 Mg PO TID Vitals/I & O Vital Sign - Last 24 Hours 09/17/19 09/17/19 09/17/19 09/17/19 11:42 12:09 13:09 15:20 Temp 98.4 97.5 98.4 97.5 Pulse 79 92 Resp 16 18 19 18 B/P (MAP) 134/79 (97) 132/76 (94) Pulse Ox 95 97 97 90 O2 Delivery Nasal Cannula Nasal Cannula Nasal Cannula Nasal Cannula O2 Flow Rate 2.0 2.0 2.0 2.0 09/17/19 09/17/19 09/17/19 09/17/19 19:00 21:20 21:27 22:27 Temp 97.6 97.6 Pulse 89 Resp 20 20 18 B/P (MAP) 149/82 (104) Pulse Ox 97 O2 Delivery Nasal Cannula Nasal Cannula Nasal Cannula Nasal Cannula O2 Flow Rate 2.0 3.0 2.0 2.0 09/17/19 09/18/19 09/18/19 09/18/19 23:17 02:14 02:44 03:19 Temp 98.7 98.0 98.7 98.0 Pulse 73 67 Resp 18 22 20 18 B/P (MAP) 122/70 (87) 147/74 (98) Pulse Ox 92 90 O2 Delivery Nasal Cannula Nasal Cannula Nasal Cannula Nasal Cannula O2 Flow Rate 3.0 2.0 2.0 3.0 09/18/19 09/18/19 09/18/19 09/18/19 05:46 06:46 07:00 07:30 Temp 97.9 97.9 Pulse 63 Resp 20 22 17 B/P (MAP) 132/77 (95) Pulse Ox 91 O2 Delivery Nasal Cannula Nasal Cannula Nasal Cannula Nasal Cannula O2 Flow Rate 3.0 2.0 2.0 3.0 Intake and Output 09/17/19 09/17/19 09/18/19 15:00 23:00 07:00 Intake Total 240 ml 1370 ml 700 ml Output Total 350 ml 300 ml 400 ml Balance -110 ml 1070 ml 300 ml LISA SINHA MD Sep 18, 2019 09:45
[2019-09-18 10:26] LABS: CREATININE 0.7 mg/dL (0.6-1.0); GFR 102.3; VANC TR 9.2 mcg/mL (10.0-20.0)
[2019-09-18] MEDS: levETIRAcetam 500 MG TABLET PO SCH ×2 (10:35→20:33)
[2019-09-18] MEDS: ASPIRIN ENTERIC COATED 81 MG TABLET.DR. PO SCH (10:35)
[2019-09-18] MEDS: SERTRALINE 50 MG TABLET. PO SCH (10:35)
[2019-09-18] MEDS: LACTOBACILLUS RHAMNOSUS GG 1 CAPSULE. PO SCH ×2 (10:35→20:33)
[2019-09-18 10:36] VITALS: BP 134/74
[2019-09-18] MEDS: VANCOMYCIN 1 GM in IV NORMAL SALINE 250ML 250 ML IV SCH ×2 (10:49→20:36)
[2019-09-18] MEDS: ONDANSETRON PF 4 MG/2 ML VIAL. IVP PRN (12:56)
[2019-09-18 15:00] VITALS: BP 158/84
[2019-09-18] MEDS ORDERED: ALBUTEROL SULFATE 2.5 MG/3 ML NEBU. NEB ONE (18:15)
[2019-09-18 19:00] VITALS: BP 135/79
[2019-09-18] MEDS: cefTRIAXone IV Push 2 GM VIAL. IVP SCH (19:19)
[2019-09-18] MEDS: VANCOMYCIN PER PHARMACY MC PRN (19:52)
--- NOTE | 2019-09-18 19:53 | NUR ---
Pharmacy Vancomycin Dosing Note S: Consulted to monitor and dose vancomycin started 09/14/19. O: RICKEY SANTIAGO is a 64 year old F with empiric coverage for meningitis, UTI, SIRS/fever. Other Antibiotics: CEFTRIAXONE 2GM IV Q24H LABS: Last BUN: 17 Last Creatinine: 0.7 Creatinine Clearance: 81 mL/min Last WBC: 12.6 Last Procalcitonin: Tmax (past 24 hours): 98.7 Microbiology: 09/14: Urine: ecoli 09/14: Blood: NGTD I/O: 2310/1050 Drug Levels: Last Trough level: 9.2 on 09/18/19 at 0930 Last dose given 09/18/19 at 1043 Vancomycin Dosing: Dosing Weight: Actual Target Trough: 15-20 A: Patient receiving vancomycin 1000 mg IV q12hrs. A trough of 9.2 is below goal range. Renal function remains improved from baseline. Change to the following: P: 1. Change to Vancomycin 1000 mg IV q8h 2. Follow up level in 5 - 7 days 3. Pharmacy will continue to monitor, follow and adjust therapy as needed. [facility], 09/18/19 195
[2019-09-18] MEDS: ALBUTEROL SULFATE 2.5 MG/3 ML NEBU. NEB SCH (20:00)
[2019-09-18] MEDS: ATORVASTATIN CALCIUM 40 MG TABLET. PO SCH (20:33)
[2019-09-18 23:00] VITALS: BP 140/95
[2019-09-19 03:00] VITALS: BP 136/87
[2019-09-19] MEDS: VANCOMYCIN 1 GM in IV NORMAL SALINE 250ML 250 ML IV SCH (04:21)
[2019-09-19] MEDS: oxyCODONE/APAP 5/325 1 TAB TABLET PO PRN ×3 (04:22→18:34)
[2019-09-19 07:00] VITALS: BP 139/87
[2019-09-19] MEDS: ALBUTEROL SULFATE 2.5 MG/3 ML NEBU. NEB SCH ×4 (07:41→20:00)
[2019-09-19] MEDS: INSULIN LISPRO 300 UNITS/3 ML VIAL. SQ SCH ×3 (08:00→17:00)
[2019-09-19] MEDS: LEVOTHYROXINE 112 MCG TABLET PO SCH (09:32)
[2019-09-19] MEDS: SERTRALINE 50 MG TABLET. PO SCH (09:32)
[2019-09-19] MEDS: ASPIRIN ENTERIC COATED 81 MG TABLET.DR. PO SCH (09:32)
[2019-09-19] MEDS: levETIRAcetam 500 MG TABLET PO SCH ×2 (09:32→22:11)
[2019-09-19] MEDS: LACTOBACILLUS RHAMNOSUS GG 1 CAPSULE. PO SCH ×2 (09:32→22:11)
[2019-09-19 10:42] VITALS: BP 132/80
--- NOTE | 2019-09-19 11:02 | NUR ---
SW following. Discussed with RN, pt needing 2L o2 now, rather than 3L. On IV Vanc/ rocephin. SW will continue to follow.
--- NOTE | 2019-09-19 11:22 | PDOC ---
PROGRESS NOTES Assessment Problems Medical Problems: (1) Altered level of consciousness Status: Acute (2) Fever Status: Acute (3) SIRS (systemic inflammatory response syndrome) Status: Acute Systemic inflammatory response syndrome related to urinary tract infection, doubt she has meningitis or encephalitis given rapid improvement. E. coli grew out History brain tumor resection, remote seizure history. Plan Mobilize with some physical therapy Okay for discharge if stable in physical therapy Subjective No complaints Objective Vital Signs Date Time Temp Pulse Resp B/P (MAP) Pulse Ox O2 Delivery O2 Flow Rate FiO2 09/19/19 10:42 98.2 70 16 132/80 (97) 92 Nasal Cannula 2.0 98.2 Intake and Output 09/19/19 07:00 Intake Total 500 ml Output Total 1150 ml Balance -650 ml Intake Oral 500 ml Output Urine Total 1150 ml # Voids 2 # Bowel Movements 3 PHYSICAL EXAM Alert. Oriented to time, place and person. PERRL. EOMI. CN: no focal findings. Muscle tone: normal. Muscle strength: 4/5 DTR: 2+ Plantar reflex: flexor Gait: A little unsteady. Sensory exam: no abnormal findings. No cerebellar signs elicited. Review of Relevant I have reviewed the following items rhonda (where applicable) has been applied. Labs Laboratory Tests Test 09/17/19 15:12 09/17/19 20:33 09/18/19 07:11 09/18/19 08:50 Glucose (Fingerstick) 123 mg/dL (70-99) 124 mg/dL (70-99) 109 mg/dL (70-99) Creatinine 0.7 mg/dL (0.6-1.0) Estimated GFR (Cockcroft-Gault) 102.3 Vancomycin Level Trough 9.2 mcg/mL (10.0-20.0) Vancomycin Last Dose Date 09/17/19 Vancomycin Last Dose Time 2100 Test 09/18/19 11:16 09/18/19 12:55 09/18/19 16:53 09/18/19 21:01 Glucose (Fingerstick) 129 mg/dL (70-99) 113 mg/dL (70-99) 110 mg/dL (70-99) Clostridium difficile Toxin B Gene Negative (Negative) Test 09/19/19 07:14 09/19/19 11:05 Glucose (Fingerstick) 109 mg/dL (70-99) 135 mg/dL (70-99) Laboratory Tests Test 09/18/19 12:55 09/18/19 16:53 09/18/19 21:01 09/19/19 07:14 Clostridium difficile Toxin B Gene Negative (Negative) Glucose (Fingerstick) 113 mg/dL (70-99) 110 mg/dL (70-99) 109 mg/dL (70-99) Test 09/19/19 11:05 Glucose (Fingerstick) 135 mg/dL (70-99) Microbiology 09/14/19 Blood Culture - Preliminary, Resulted NO GROWTH AFTER 4 DAYS 09/14/19 Urine Culture - Final, Complete 09/14/19 Urine Culture Result 1 (ELIZABETH) - Final, Complete 09/14/19 Antimicrobic Susceptibility - Final, Complete Medications Current Medications Sodium Chloride 1,000 ml @ 1,000 mls/hr Q1H IV Last administered on 09/14/19at 17:05; Start 09/14/19 at 16:34; Stop 09/14/19 at 17:33; Status DC Acetaminophen (Tylenol Supp) 650 mg 1X ONCE KS Last administered on 09/14/19at 17:05; Start 09/14/19 at 16:45; Stop 09/14/19 at 16:53; Status DC Sodium Chloride 1,000 ml @ 2,000 mls/hr Q1H IV ; Start 09/14/19 at 17:30; Stop 09/14/19 at 18:13; Status DC Piperacillin Sod/ Tazobactam Sod 3.375 gm/Sodium Chloride 50 ml @ 100 mls/hr 1X ONCE IV Last administered on 09/14/19at 18:23; Start 09/14/19 at 17:30; Stop 09/14/19 at 17:59; Status DC Iohexol (Omnipaque 350 Mg/ml) 60 ml 1X ONCE IV Last administered on 09/14/19at 17:43; Start 09/14/19 at 17:30; Stop 09/14/19 at 17:31; Status DC Sodium Chloride 1,000 ml @ 1,000 mls/hr 1X ONCE IV Last administered on 09/14/19at 18:24; Start 09/14/19 at 18:15; Stop 09/14/19 at 19:14; Status DC Acetaminophen (Tylenol) 1,000 mg 1X ONCE PO Last administered on 09/14/19 18:51; Start 09/14/19 at 18:30; Stop 09/14/19 at 18:31; Status DC Ibuprofen (Motrin) 800 mg 1X ONCE PO Last administered on 09/14/19 18:51; Start 09/14/19 at 18:30; Stop 09/14/19 at 18:31; Status DC Ceftriaxone Sodium (Rocephin) 2 gm 1X ONCE IVP Last administered on 09/14/19 19:33; Start 09/14/19 at 19:00; Stop 09/14/19 at 19:03; Status DC Vancomycin HCl 250 ml @ 250 mls/hr 1X ONCE IV ; Start 09/14/19 at 19:00; Stop 09/14/19 at 19:59; Status UNV Vancomycin HCl 1.75 gm/Sodium Chloride 500 ml @ 250 mls/hr 1X ONCE IV Last administered on 09/14/19 19:41; Start 09/14/19 at 19:15; Stop 09/14/19 at 21:14; Status DC Ondansetron HCl (Zofran) 4 mg PRN Q8HRS PRN IV NAUSEA/VOMITING Last administered on 09/14/19 19:49; Start 09/14/19 at 19:30; Stop 09/15/19 at 19:29; Status DC Morphine Sulfate (Morphine Sulfate) 2 mg PRN Q2HR PRN IV PAIN Last administered on 09/15/19 18:47; Start 09/14/19 at 19:30; Stop 09/15/19 at 19:29; Status DC Acetaminophen (Tylenol) 650 mg PRN Q4HRS PRN PO FEVER; Start 09/14/19 at 19:30; Stop 09/15/19 at 19:29; Status DC Sodium Chloride 1,000 ml @ 100 mls/hr Q10H IV Last administered on 09/18/19 23:32; Start 09/14/19 at 23:30 Al Hydroxide/Mg Hydroxide (Mylanta Plus Xs) 30 ml PRN DAILY PRN PO HEARTBURN / GAS; Start 09/14/19 at 22:30 Vancomycin HCl (Vanco Per Pharmacy) 1 each PRN DAILY PRN MC SEE COMMENTS Last administered on 09/18/19at 19:52; Start 09/14/19 at 22:45; Stop 09/19/19 at 11:16; Status DC Ceftriaxone Sodium (Rocephin) 2 gm Q24H IVP ; Start 09/14/19 at 23:00; Stop 09/14/19 at 22:43; Status DC Ceftriaxone Sodium (Rocephin) 2 gm Q24H IVP Last administered on 09/18/19at 19:19; Start 09/15/19 at 19:00 Insulin Human Lispro (HumaLOG) 0-5 UNITS TIDWMEALS SQ ; Start 09/15/19 at 08:00 Dextrose (Dextrose 50%-Water Syringe) 12.5 gm PRN Q15MIN PRN IV SEE COMMENTS; Start 09/14/19 at 23:00 Dextrose (Iv Dextrose 5%) 250 ml PRN Q15MIN PRN IV SEE COMMENTS; Start 09/14/19 at 23:00 Vancomycin HCl 1 gm/Sodium Chloride 250 ml @ 250 mls/hr Q24H IV Last administered on 09/15/19at 20:06; Start 09/15/19 at 20:00; Stop 09/16/19 at 20:29; Status DC Vancomycin HCl (Vancomycin Trough Level) 1 each 1X ONCE MC Last administered on 09/16/19at 19:30; Start 09/16/19 at 19:30; Stop 09/16/19 at 19:31; Status DC Aspirin (Ecotrin) 81 mg DAILY PO Last administered on 09/19/19at 09:32; Start 09/15/19 at 12:00 Atorvastatin Calcium (Lipitor) 40 mg QHS PO Last administered on 09/18/19at 20:33; Start 09/16/19 at 21:00 Levetiracetam (Keppra) 500 mg BID PO Last administered on 09/19/19at 09:32; Start 09/15/19 at 12:00 Levothyroxine Sodium (Synthroid) 112 mcg DAILY PO Last administered on 09/19/19 09:32; Start 09/15/19 at 12:00 Sertraline HCl (Zoloft) 100 mg DAILY PO Last administered on 09/19/19at 09:32; Start 09/15/19 at 12:00 Potassium Chloride (Klor-Con) 40 meq 1X ONCE PO Last administered on 09/15/19at 18:42; Start 09/15/19 at 17:00; Stop 09/15/19 at 17:01; Status DC Ondansetron HCl (Zofran) 4 mg PRN Q6HRS PRN IVP NAUSEA/VOMITING Last administered on 09/18/19at 12:56; Start 09/15/19 at 20:15 Morphine Sulfate (Morphine Sulfate) 2 mg PRN Q2HR PRN IV PAIN Last administered on 09/18/19at 20:36; Start 09/15/19 at 20:15 Oxycodone/ Acetaminophen (Percocet 5/325) 1 tab PRN Q6HRS PRN PO PAIN Last administered on 09/19/19 11:17; Start 09/16/19 at 05:30 Lactobacillus Rhamnosus (Culturelle) 1 cap BID PO Last administered on 09/19/19at 09:32; Start 09/16/19 at 21:00 Vancomycin HCl 1 gm/Sodium Chloride 250 ml @ 250 mls/hr Q12H IV Last administered on 09/18/19 10:49; Start 09/16/19 at 21:00; Stop 09/18/19 at 19:50; Status DC Vancomycin HCl (Vancomycin Trough Level) 1 each 1X ONCE MC Last administered on 09/18/19at 08:30; Start 09/18/19 at 08:30; Stop 09/18/19 at 08:31; Status DC Albuterol Sulfate (Ventolin Neb Soln) 2.5 mg RTQID NEB Last administered on 09/19/19at 07:41; Start 09/18/19 at 20:00 Albuterol Sulfate (Ventolin Neb Soln) 2.5 mg 1X ONCE NEB Last administered on 09/18/19at 18:11; Start 09/18/19 at 18:15; Stop 09/18/19 at 18:16; Status DC Vancomycin HCl 1 gm/Sodium Chloride 250 ml @ 250 mls/hr Q8H IV Last a dministered on 09/19/19at 04:21; Start 09/18/19 at 20:00; Stop 09/19/19 at 11:16; Status DC Active Scripts Active Reported Aspirin Ec (Aspirin) 81 Mg Tablet.dr 1 Tab PO DAILY Levothyroxine Sodium 112 Mcg Tablet 1 Tab PO DAILY Multi Vitamin Daily (Multivitamin) 1 Each Tablet 1 Tab PO DAILY 30 Days Fish Oil 1,000 Mg Softgel ([place]-3 Fatty Acids/Fish Oil) 1 Each Capsule 1 Cap PO DAILY 30 Days Ranitidine Hcl 300 Mg Tablet 1 Tab PO QHS Pazeo (Olopatadine HCl) 2.5 Ml Drops 2.5 Ml OP DAILY Losartan-Hctz 50-12.5 Mg Tab (Losartan/Hydrochlorothiazide) 1 Each Tablet 1 Tab PO DAILY Levetiracetam 500 Mg Tablet 1 Tab PO BID Metformin Hcl Er (Metformin Hcl) 500 Mg Tab.er.24h 500 Mg PO BIDWMEALS Atenolol 50 Mg Tablet 1 Tab PO HS Diphenhydramine Hcl 25 Mg Tablet 25 Mg PO PRN PRN Loratadine 10 Mg Tab.rapdis 1 Tab PO DAILY 30 Days Baclofen 10 Mg Tablet 1 Tab PO BID Isosorbide Mononitrate Er (Isosorbide Mononitrate) 30 Mg Tab.er.24h 1 Tab PO DAILY Zoloft (Sertraline Hcl) 100 Mg Tablet 1 Tab PO DAILY Atorvastatin Calcium 40 Mg Tablet 1 Tab PO DAILY Gabapentin 600 Mg Tablet 600 Mg PO TID Vitals/I & O Vital Sign - Last 24 Hours 09/18/19 09/18/19 09/18/19 09/18/19 12:58 14:00 15:00 16:18 Temp 97.8 97.8 Pulse 60 Resp 17 B/P (MAP) 158/84 (108) Pulse Ox 91 91 O2 Delivery Room Air Nasal Cannula Nasal Cannula Nasal Cannula O2 Flow Rate 3.0 2.0 3.0 09/18/19 09/18/19 09/18/19 09/18/19 17:49 18:15 19:00 20:00 Temp 97.9 97.9 Pulse 68 Resp 18 B/P (MAP) 135/79 (97) Pulse Ox 90 92 O2 Delivery Nasal Cannula Nasal Cannula Nasal Cannula O2 Flow Rate 3.0 3.0 3.0 09/18/19 09/18/19 09/18/19 09/18/19 20:36 20:52 22:23 23:00 Temp 99.2 99.2 Pulse 67 Resp 16 B/P (MAP) 140/95 (110) Pulse Ox 90 88 88 100 O2 Delivery Nasal Cannula Nasal Cannula Nasal Cannula O2 Flow Rate 3.0 3.0 3.0 09/19/19 09/19/19 09/19/19 09/19/19 03:00 04:22 07:00 08:00 Temp 99.6 98.5 99.6 98.5 Pulse 74 70 Resp 18 16 B/P (MAP) 136/87 (103) 139/87 (104) Pulse Ox 93 100 91 O2 Delivery Nasal Cannula Nasal Cannula Nasal Cannula O2 Flow Rate 3.0 2.0 3.0 09/19/19 10:42 Temp 98.2 98.2 Pulse 70 Resp 16 B/P (MAP) 132/80 (97) Pulse Ox 92 O2 Delivery Nasal Cannula O2 Flow Rate 2.0 Intake and Output 09/18/19 09/18/19 09/19/19 15:00 23:00 07:00 Intake Total 300 ml 200 ml Output Total 300 ml 850 ml Balance 300 ml -100 ml -850 ml LAY BUSCH MD Sep 19, 2019 11:22
[2019-09-19] MEDS: IV NORMAL SALINE 1000ML BAG 1,000 ML IV SCH (14:00)
--- NOTE | 2019-09-19 14:14 | PDOC ---
PROGRESS NOTES Chief Complaint Chief Complaint Acute toxic and metabolic encephalopathy weakness and debility, acquired Sepsis, POA Presumptive UTI URINE CULTURE RES 1 Preliminary Escherichia coli Hx of Brain Tumor on Seizure ppx HTN DM Hypothyroidism GERD History of Present Illness History of Present Illness 64 year old BF with hx of HTN, HLD, GERD, DM, prior brain tumor sx on keppra for seizur ppx who is from [facility] visiting her daughter and baby here in [place]. patient seen last in her normal state around 2 pm yesterday and found by her daughter this AM confused since this AM per son who was at the bedside providing as much history as he can. he also notes that patient was in bed most of the day yesterday. noted temp of 102.2 upon arrival. patient appears very lethargic and answers questions minimally. no reported cough, dysuria, chest pain, sob, nausea vomiting diarrhea. no reported illicit drug use. has had adequate PO intake per son. patient usually more alert and awake and per son, this is not her normal self. no prior hx of stroke. no reported seizure activity per family. takes all medications as prescribed. continue empiric Rocephin pt and OT plan DC if str improved IVF fluids NPO status till cleared by speech neuro consulted if LP negative and still altered, will consider MRI brain full code Vitals Vitals Vital Signs Date Time Temp Pulse Resp B/P (MAP) Pulse Ox O2 Delivery O2 Flow Rate FiO2 09/19/19 10:42 98.2 70 16 132/80 (97) 92 Nasal Cannula 2.0 98.2 Physical Exam Physical Exam GENERAL: confused, lethargic HEENT: Head normocephalic, atraumatic. NECK: Supple LUNGS: Clear to auscultation. HEART: RRR, S1, S2 present, pulses intact ABDOMEN: Soft, positive bowel sounds. EXTREMITIES: No cyanosis or edema. NEUROLOGIC: patient altered, normal pupils. does not follow commands PSYCHIATRIC: Normal affect, normal mood. SKIN: No ulceration. Labs LABS Laboratory Tests Test 09/18/19 16:53 09/18/19 21:01 09/19/19 07:14 09/19/19 11:05 Glucose (Fingerstick) 113 mg/dL (70-99) 110 mg/dL (70-99) 109 mg/dL (70-99) 135 mg/dL (70-99) Assessment and Plan Assessmemt and Plan Problems Medical Problems: (1) Altered level of consciousness Status: Acute (2) Fever Status: Acute (3) SIRS (systemic inflammatory response syndrome) Status: Acute Comment Review of Relevant I have reviewed the following items rhonda (where applicable) has been applied. Labs Laboratory Tests Test 09/17/19 15:12 09/17/19 20:33 09/18/19 07:11 09/18/19 08:50 Glucose (Fingerstick) 123 mg/dL (70-99) 124 mg/dL (70-99) 109 mg/dL (70-99) Creatinine 0.7 mg/dL (0.6-1.0) Estimated GFR (Cockcroft-Gault) 102.3 Vancomycin Level Trough 9.2 mcg/mL (10.0-20.0) Vancomycin Last Dose Date 09/17/19 Vancomycin Last Dose Time 2100 Test 09/18/19 11:16 09/18/19 12:55 09/18/19 16:53 09/18/19 21:01 Glucose (Fingerstick) 129 mg/dL (70-99) 113 mg/dL (70-99) 110 mg/dL (70-99) Clostridium difficile Toxin B Gene Negative (Negative) Test 09/19/19 07:14 09/19/19 11:05 Glucose (Fingerstick) 109 mg/dL (70-99) 135 mg/dL (70-99) Laboratory Tests Test 09/18/19 16:53 09/18/19 21:01 09/19/19 07:14 09/19/19 11:05 Glucose (Fingerstick) 113 mg/dL (70-99) 110 mg/dL (70-99) 109 mg/dL (70-99) 135 mg/dL (70-99) Microbiology 09/14/19 Blood Culture - Preliminary, Resulted NO GROWTH AFTER 4 DAYS 09/14/19 Urine Culture - Final, Complete 09/14/19 Urine Culture Result 1 (ELIZABETH) - Final, Complete 09/14/19 Antimicrobic Susceptibility - Final, Complete Medications Current Medications Sodium Chloride 1,000 ml @ 1,000 mls/hr Q1H IV Last administered on 09/14/19at 17:05; Start 09/14/19 at 16:34; Stop 09/14/19 at 17:33; Status DC Acetaminophen (Tylenol Supp) 650 mg 1X ONCE WI Last administered on 09/14/19at 17:05; Start 09/14/19 at 16:45; Stop 09/14/19 at 16:53; Status DC Sodium Chloride 1,000 ml @ 2,000 mls/hr Q1H IV ; Start 09/14/19 at 17:30; Stop 09/14/19 at 18:13; Status DC Piperacillin Sod/ Tazobactam Sod 3.375 gm/Sodium Chloride 50 ml @ 100 mls/hr 1X ONCE IV Last administered on 09/14/19at 18:23; Start 09/14/19 at 17:30; Stop 09/14/19 at 17:59; Status DC Iohexol (Omnipaque 350 Mg/ml) 60 ml 1X ONCE IV Last administered on 09/14/19at 17:43; Start 09/14/19 at 17:30; Stop 09/14/19 at 17:31; Status DC Sodium Chloride 1,000 ml @ 1,000 mls/hr 1X ONCE IV Last administered on 09/14/19at 18:24; Start 09/14/19 at 18:15; Stop 09/14/19 at 19:14; Status DC Acetaminophen (Tylenol) 1,000 mg 1X ONCE PO Last administered on 09/14/19at 18:51; Start 09/14/19 at 18:30; Stop 09/14/19 at 18:31; Status DC Ibuprofen (Motrin) 800 mg 1X ONCE PO Last administered on 09/14/19at 18:51; Start 09/14/19 at 18:30; Stop 09/14/19 at 18:31; Status DC Ceftriaxone Sodium (Rocephin) 2 gm 1X ONCE IVP Last administered on 09/14/19at 19:33; Start 09/14/19 at 19:00; Stop 09/14/19 at 19:03; Status DC Vancomycin HCl 250 ml @ 250 mls/hr 1X ONCE IV ; Start 09/14/19 at 19:00; Stop 09/14/19 at 19:59; Status UNV Vancomycin HCl 1.75 gm/Sodium Chloride 500 ml @ 250 mls/hr 1X ONCE IV Last administered on 09/14/19at 19:41; Start 09/14/19 at 19:15; Stop 09/14/19 at 21:14; Status DC Ondansetron HCl (Zofran) 4 mg PRN Q8HRS PRN IV NAUSEA/VOMITING Last administered on 09/14/19at 19:49; Start 09/14/19 at 19:30; Stop 09/15/19 at 19:29; Status DC Morphine Sulfate (Morphine Sulfate) 2 mg PRN Q2HR PRN IV PAIN Last administered on 09/15/19at 18:47; Start 09/14/19 at 19:30; Stop 09/15/19 at 19:29; Status DC Acetaminophen (Tylenol) 650 mg PRN Q4HRS PRN PO FEVER; Start 09/14/19 at 19:30; Stop 09/15/19 at 19:29; Status DC Sodium Chloride 1,000 ml @ 100 mls/hr Q10H IV Last administered on 09/19/19at 14:00; Start 09/14/19 at 23:30 Al Hydroxide/Mg Hydroxide (Mylanta Plus Xs) 30 ml PRN DAILY PRN PO HEARTBURN / GAS; Start 09/14/19 at 22:30 Vancomycin HCl (Vanco Per Pharmacy) 1 each PRN DAILY PRN MC SEE COMMENTS Last administered on 09/18/19at 19:52; Start 09/14/19 at 22:45; Stop 09/19/19 at 11:16; Status DC Ceftriaxone Sodium (Rocephin) 2 gm Q24H IVP ; Start 09/14/19 at 23:00; Stop 09/14/19 at 22:43; Status DC Ceftriaxone Sodium (Rocephin) 2 gm Q24H IVP Last administered on 09/18/19at 19:19; Start 09/15/19 at 19:00 Insulin Human Lispro (HumaLOG) 0-5 UNITS TIDWMEALS SQ ; Start 09/15/19 at 08:00 Dextrose (Dextrose 50%-Water Syringe) 12.5 gm PRN Q15MIN PRN IV SEE COMMENTS; Start 09/14/19 at 23:00 Dextrose (Iv Dextrose 5%) 250 ml PRN Q15MIN PRN IV SEE COMMENTS; Start 09/14/19 at 23:00 Vancomycin HCl 1 gm/Sodium Chloride 250 ml @ 250 mls/hr Q24H IV Last administered on 09/15/19at 20:06; Start 09/15/19 at 20:00; Stop 09/16/19 at 20:29; Status DC Vancomycin HCl (Vancomycin Trough Level) 1 each 1X ONCE MC Last administered on 09/16/19 19:30; Start 09/16/19 at 19:30; Stop 09/16/19 at 19:31; Status DC Aspirin (Ecotrin) 81 mg DAILY PO Last administered on 09/19/19 09:32; Start 09/15/19 at 12:00 Atorvastatin Calcium (Lipitor) 40 mg QHS PO Last administered on 09/18/19 20:33; Start 09/16/19 at 21:00 Levetiracetam (Keppra) 500 mg BID PO Last administered on 09/19/19 09:32; Start 09/15/19 at 12:00 Levothyroxine Sodium (Synthroid) 112 mcg DAILY PO Last administered on 09/19/19 09:32; Start 09/15/19 at 12:00 Sertraline HCl (Zoloft) 100 mg DAILY PO Last administered on 09/19/19 09:32; Start 09/15/19 at 12:00 Potassium Chloride (Klor-Con) 40 meq 1X ONCE PO Last administered on 09/15/19 18:42; Start 09/15/19 at 17:00; Stop 09/15/19 at 17:01; Status DC Ondansetron HCl (Zofran) 4 mg PRN Q6HRS PRN IVP NAUSEA/VOMITING Last administered on 09/18/19 12:56; Start 09/15/19 at 20:15 Morphine Sulfate (Morphine Sulfate) 2 mg PRN Q2HR PRN IV PAIN Last administered on 09/18/19 20:36; Start 09/15/19 at 20:15 Oxycodone/ Acetaminophen (Percocet 5/325) 1 tab PRN Q6HRS PRN PO PAIN Last administered on 09/19/19 11:17; Start 09/16/19 at 05:30 Lactobacillus Rhamnosus (Culturelle) 1 cap BID PO Last administered on 09/19/19 09:32; Start 09/16/19 at 21:00 Vancomycin HCl 1 gm/Sodium Chloride 250 ml @ 250 mls/hr Q12H IV Last administered on 09/18/19 10:49; Start 2/8/20 at 21:00; Stop 09/18/19 at 19:50; Status DC Vancomycin HCl (Vancomycin Trough Level) 1 each 1X ONCE MC Last administered on 09/18/19at 08:30; Start 09/18/19 at 08:30; Stop 09/18/19 at 08:31; Status DC Albuterol Sulfate (Ventolin Neb Soln) 2.5 mg RTQID NEB Last administered on 09/19/19at 11:26; Start 09/18/19 at 20:00 Albuterol Sulfate (Ventolin Neb Soln) 2.5 mg 1X ONCE NEB Last administered on 09/18/19at 18:11; Start 09/18/19 at 18:15; Stop 09/18/19 at 18:16; Status DC Vancomycin HCl 1 gm/Sodium Chloride 250 ml @ 250 mls/hr Q8H IV Last administered on 09/19/19at 04:21; Start 09/18/19 at 20:00; Stop 09/19/19 at 11:16; Status DC Active Scripts Active Reported Aspirin Ec (Aspirin) 81 Mg Tablet.dr 1 Tab PO DAILY Levothyroxine Sodium 112 Mcg Tablet 1 Tab PO DAILY Multi Vitamin Daily (Multivitamin) 1 Each Tablet 1 Tab PO DAILY 30 Days Fish Oil 1,000 Mg Softgel ([place]-3 Fatty Acids/Fish Oil) 1 Each Capsule 1 Cap PO DAILY 30 Days Ranitidine Hcl 300 Mg Tablet 1 Tab PO QHS Pazeo (Olopatadine HCl) 2.5 Ml Drops 2.5 Ml OP DAILY Losartan-Hctz 50-12.5 Mg Tab (Losartan/Hydrochlorothiazide) 1 Each Tablet 1 Tab PO DAILY Levetiracetam 500 Mg Tablet 1 Tab PO BID Metformin Hcl Er (Metformin Hcl) 500 Mg Tab.er.24h 500 Mg PO BIDWMEALS Atenolol 50 Mg Tablet 1 Tab PO HS Diphenhydramine Hcl 25 Mg Tablet 25 Mg PO PRN PRN Loratadine 10 Mg Tab.rapdis 1 Tab PO DAILY 30 Days Baclofen 10 Mg Tablet 1 Tab PO BID Isosorbide Mononitrate Er (Isosorbide Mononitrate) 30 Mg Tab.er.24h 1 Tab PO DAILY Zoloft (Sertraline Hcl) 100 Mg Tablet 1 Tab PO DAILY Atorvastatin Calcium 40 Mg Tablet 1 Tab PO DAILY Gabapentin 600 Mg Tablet 600 Mg PO TID Vitals/I & O Vital Sign - Last 24 Hours 09/18/19 09/18/19 09/18/19 09/18/19 15:00 16:18 17:49 18:15 Temp 97.8 97.8 Pulse 60 Resp 17 B/P (MAP) 158/84 (108) Pulse Ox 91 90 O2 Delivery Nasal Cannula Nasal Cannula Nasal Cannula Nasal Cannula O2 Flow Rate 2.0 3.0 3.0 3.0 09/18/19 09/18/19 09/18/19 09/18/19 19:00 20:00 20:36 20:52 Temp 97.9 97.9 Pulse 68 Resp 18 B/P (MAP) 135/79 (97) Pulse Ox 92 90 88 O2 Delivery Nasal Cannula Nasal Cannula Nasal Cannula O2 Flow Rate 3.0 3.0 3.0 09/18/19 09/18/19 09/19/19 09/19/19 22:23 23:00 03:00 04:22 Temp 99.2 99.6 99.2 99.6 Pulse 67 74 Resp 16 18 B/P (MAP) 140/95 (110) 136/87 (103) Pulse Ox 88 100 93 100 O2 Delivery Nasal Cannula Nasal Cannula O2 Flow Rate 3.0 3.0 09/19/19 09/19/19 09/19/19 07:00 08:00 10:42 Temp 98.5 98.2 98.5 98.2 Pulse 70 70 Resp 16 16 B/P (MAP) 139/87 (104) 132/80 (97) Pulse Ox 91 92 O2 Delivery Nasal Cannula Nasal Cannula Nasal Cannula O2 Flow Rate 2.0 3.0 2.0 Intake and Output 09/18/19 09/18/19 09/19/19 15:00 23:00 07:00 Intake Total 300 ml 200 ml Output Total 300 ml 850 ml Balance 300 ml -100 ml -850 ml CELINA STRANGE MD Sep 19, 2019 14:14
[2019-09-19 14:57] VITALS: BP 142/80
[2019-09-19] MEDS: ONDANSETRON PF 4 MG/2 ML VIAL. IVP PRN (18:35)
[2019-09-19 19:00] VITALS: BP 158/89
[2019-09-19] MEDS: cefTRIAXone IV Push 2 GM VIAL. IVP SCH (20:14)
[2019-09-19] MEDS: ATORVASTATIN CALCIUM 40 MG TABLET. PO SCH (22:11)
[2019-09-19 23:00] VITALS: BP 151/94
[2019-09-20] MEDS: IV NORMAL SALINE 1000ML BAG 1,000 ML IV SCH ×2 (00:52→09:30)
[2019-09-20 03:00] VITALS: BP 162/93
[2019-09-20] MEDS: oxyCODONE/APAP 5/325 1 TAB TABLET PO PRN ×3 (04:11→23:45)
[2019-09-20 07:00] VITALS: BP 144/75
[2019-09-20] MEDS: ALBUTEROL SULFATE 2.5 MG/3 ML NEBU. NEB SCH ×3 (07:53→15:49)
[2019-09-20] MEDS: INSULIN LISPRO 300 UNITS/3 ML VIAL. SQ SCH ×3 (08:00→17:00)
[2019-09-20] MEDS: levETIRAcetam 500 MG TABLET PO SCH ×2 (10:21→23:40)
[2019-09-20] MEDS: LEVOTHYROXINE 112 MCG TABLET PO SCH (10:21)
[2019-09-20] MEDS: ASPIRIN ENTERIC COATED 81 MG TABLET.DR. PO SCH (10:21)
[2019-09-20] MEDS: SERTRALINE 50 MG TABLET. PO SCH (10:22)
[2019-09-20] MEDS: LACTOBACILLUS RHAMNOSUS GG 1 CAPSULE. PO SCH ×2 (10:22→23:52)
[2019-09-20] MEDS ORDERED: ASA/APAP/CAFFEINE 250/250/65MG TABLET. PO PRN (10:45)
[2019-09-20] MEDS: OMEGA-3 FATTY ACIDS/FISH OIL 1,000 MG CAPSULE. PO SCH (10:51)
[2019-09-20] MEDS: CETIRIZINE HCL 10 MG TABLET. PO SCH (10:51)
[2019-09-20] MEDS: ONDANSETRON PF 4 MG/2 ML VIAL. IVP PRN (10:58)
[2019-09-20 10:59] VITALS: BP 140/90
[2019-09-20] MEDS: ISOSORBIDE MONONITRATE ER 30 MG TAB.ER.24H PO SCH (10:59)
[2019-09-20] MEDS: MULTIVITAMIN with MINERAL TABLET. PO SCH (11:00)
[2019-09-20] MEDS ORDERED: diphenhydrAMINE HCL 25 MG CAPSULE PO PRN (11:00)
--- NOTE | 2019-09-20 13:07 | PDOC ---
PROGRESS NOTES Assessment Problems Medical Problems: (1) Altered level of consciousness Status: Acute (2) Fever Status: Acute (3) SIRS (systemic inflammatory response syndrome) Status: Acute Systemic inflammatory response syndrome related to urinary tract infection, doubt she has meningitis or encephalitis given rapid improvement. E. coli grew out History brain tumor resection, remote seizure history. Plan Mobilize with some physical therapy, I ordered this yesterday morning, no notes on chart yet Okay for discharge if stable in physical therapy Subjective No complaints Objective Vital Signs Date Time Temp Pulse Resp B/P (MAP) Pulse Ox O2 Delivery O2 Flow Rate FiO2 09/20/19 11:43 92 Nasal Cannula 5.0 09/20/19 11:21 22 09/20/19 10:59 98.0 67 140/90 (107) 98.0 Intake and Output 09/20/19 07:00 Intake Total 1900 ml Output Total 2700 ml Balance -800 ml Intake Oral 900 ml IV Total 1000 ml Output Urine Total 500 ml Urine/Stool Mix 2200 ml # Voids 1 PHYSICAL EXAM Alert. Oriented to time, place and person. PERRL. EOMI. CN: no focal findings. Muscle tone: normal. Muscle strength: 4/5 DTR: 2+ Plantar reflex: flexor Gait: A little unsteady. Sensory exam: no abnormal findings. No cerebellar signs elicited. Review of Relevant I have reviewed the following items rhonda (where applicable) has been applied. Labs Laboratory Tests Test 09/18/19 16:53 09/18/19 21:01 09/19/19 07:14 09/19/19 11:05 Glucose (Fingerstick) 113 mg/dL (70-99) 110 mg/dL (70-99) 109 mg/dL (70-99) 135 mg/dL (70-99) Test 09/19/19 16:13 09/19/19 20:53 09/20/19 07:21 09/20/19 11:36 Glucose (Fingerstick) 104 mg/dL (70-99) 127 mg/dL (70-99) 93 mg/dL (70-99) 99 mg/dL (70-99) Laboratory Tests Test 09/19/19 16:13 09/19/19 20:53 09/20/19 07:21 09/20/19 11:36 Glucose (Fingerstick) 104 mg/dL (70-99) 127 mg/dL (70-99) 93 mg/dL (70-99) 99 mg/dL (70-99) Microbiology 09/14/19 Blood Culture - Final, Complete NO GROWTH AFTER 5 DAYS 09/14/19 Urine Culture - Final, Complete 09/14/19 Urine Culture Result 1 (ELIZABETH) - Final, Complete 09/14/19 Antimicrobic Susceptibility - Final, Complete Medications Current Medications Sodium Chloride 1,000 ml @ 1,000 mls/hr Q1H IV Last administered on 09/14/19at 17:05; Start 09/14/19 at 16:34; Stop 09/14/19 at 17:33; Status DC Acetaminophen (Tylenol Supp) 650 mg 1X ONCE WI Last administered on 09/14/19at 17:05; Start 09/14/19 at 16:45; Stop 09/14/19 at 16:53; Status DC Sodium Chloride 1,000 ml @ 2,000 mls/hr Q1H IV ; Start 09/14/19 at 17:30; Stop 09/14/19 at 18:13; Status DC Piperacillin Sod/ Tazobactam Sod 3.375 gm/Sodium Chloride 50 ml @ 100 mls/hr 1X ONCE IV Last administered on 09/14/19at 18:23; Start 09/14/19 at 17:30; Stop 09/14/19 at 17:59; Status DC Iohexol (Omnipaque 350 Mg/ml) 60 ml 1X ONCE IV Last administered on 09/14/19at 17:43; Start 09/14/19 at 17:30; Stop 09/14/19 at 17:31; Status DC Sodium Chloride 1,000 ml @ 1,000 mls/hr 1X ONCE IV Last administered on 09/14/19at 18:24; Start 09/14/19 at 18:15; Stop 09/14/19 at 19:14; Status DC Acetaminophen (Tylenol) 1,000 mg 1X ONCE PO Last administered on 09/14/19at 18:51; Start 09/14/19 at 18:30; Stop 09/14/19 at 18:31; Status DC Ibuprofen (Motrin) 800 mg 1X ONCE PO Last administered on 09/14/19at 18:51; Start 09/14/19 at 18:30; Stop 09/14/19 at 18:31; Status DC Ceftriaxone Sodium (Rocephin) 2 gm 1X ONCE IVP Last administered on 09/14/19at 19:33; Start 09/14/19 at 19:00; Stop 09/14/19 at 19:03; Status DC Vancomycin HCl 250 ml @ 250 mls/hr 1X ONCE IV ; Start 09/14/19 at 19:00; Stop 09/14/19 at 19:59; Status UNV Vancomycin HCl 1.75 gm/Sodium Chloride 500 ml @ 250 mls/hr 1X ONCE IV Last administered on 09/14/19at 19:41; Start 09/14/19 at 19:15; Stop 09/14/19 at 21:14; Status DC Ondansetron HCl (Zofran) 4 mg PRN Q8HRS PRN IV NAUSEA/VOMITING Last administered on 09/14/19at 19:49; Start 09/14/19 at 19:30; Stop 09/15/19 at 19:29; Status DC Morphine Sulfate (Morphine Sulfate) 2 mg PRN Q2HR PRN IV PAIN Last administered on 09/15/19at 18:47; Start 09/14/19 at 19:30; Stop 09/15/19 at 19:29; Status DC Acetaminophen (Tylenol) 650 mg PRN Q4HRS PRN PO FEVER; Start 09/14/19 at 19:30; Stop 09/15/19 at 19:29; Status DC Sodium Chloride 1,000 ml @ 100 mls/hr Q10H IV Last administered on 09/20/19at 00:52; Start 09/14/19 at 23:30 Al Hydroxide/Mg Hydroxide (Mylanta Plus Xs) 30 ml PRN DAILY PRN PO HEARTBURN / GAS; Start 09/14/19 at 22:30 Vancomycin HCl (Vanco Per Pharmacy) 1 each PRN DAILY PRN MC SEE COMMENTS Last administered on 09/18/19at 19:52; Start 09/14/19 at 22:45; Stop 09/19/19 at 11:16; Status DC Ceftriaxone Sodium (Rocephin) 2 gm Q24H IVP ; Start 09/14/19 at 23:00; Stop 09/14/19 at 22:43; Status DC Ceftriaxone Sodium (Rocephin) 2 gm Q24H IVP Last administered on 09/19/19at 20:14; Start 09/15/19 at 19:00 Insulin Human Lispro (HumaLOG) 0-5 UNITS TIDWMEALS SQ ; Start 09/15/19 at 08:00 Dextrose (Dextrose 50%-Water Syringe) 12.5 gm PRN Q15MIN PRN IV SEE COMMENTS; Start 09/14/19 at 23:00 Dextrose (Iv Dextrose 5%) 250 ml PRN Q15MIN PRN IV SEE COMMENTS; Start 09/14/19 at 23:00 Vancomycin HCl 1 gm/Sodium Chloride 250 ml @ 250 mls/hr Q24H IV Last administered on 09/15/19at 20:06; Start 09/15/19 at 20:00; Stop 09/16/19 at 20:29; Status DC Vancomycin HCl (Vancomycin Trough Level) 1 each 1X ONCE MC Last administered on 09/16/19at 19:30; Start 09/16/19 at 19:30; Stop 09/16/19 at 19:31; Status DC Aspirin (Ecotrin) 81 mg DAILY PO Last administered on 09/20/19at 10:21; Start 09/15/19 at 12:00 Atorvastatin Calcium (Lipitor) 40 mg QHS PO Last administered on 09/19/19at 22:11; Start 09/16/19 at 21:00 Levetiracetam (Keppra) 500 mg BID PO Last administered on 09/20/19 10:21; Start 09/15/19 at 12:00 Levothyroxine Sodium (Synthroid) 112 mcg DAILY PO Last administered on 09/20/19at 10:21; Start 09/15/19 at 12:00 Sertraline HCl (Zoloft) 100 mg DAILY PO Last administered on 09/20/19at 10:22; Start 09/15/19 at 12:00 Potassium Chloride (Klor-Con) 40 meq 1X ONCE PO Last administered on 09/15/19at 18:42; Start 09/15/19 at 17:00; Stop 09/15/19 at 17:01; Status DC Ondansetron HCl (Zofran) 4 mg PRN Q6HRS PRN IVP NAUSEA/VOMITING Last administered on 09/20/19at 10:58; Start 09/15/19 at 20:15 Morphine Sulfate (Morphine Sulfate) 2 mg PRN Q2HR PRN IV PAIN Last administered on 09/18/19at 20:36; Start 09/15/19 at 20:15 Oxycodone/ Acetaminophen (Percocet 5/325) 1 tab PRN Q6HRS PRN PO PAIN Last administered on 09/20/19at 10:21; Start 09/16/19 at 05:30 Lactobacillus Rhamnosus (Culturelle) 1 cap BID PO Last administered on 09/20/19at 10:22; Start 09/16/19 at 21:00 Vancomycin HCl 1 gm/Sodium Chloride 250 ml @ 250 mls/hr Q12H IV Last administered on 09/18/19at 10:49; Start 09/16/19 at 21:00; Stop 09/18/19 at 19:50; Status DC Vancomycin HCl (Vancomycin Trough Level) 1 each 1X ONCE MC Last administered on 09/18/19at 08:30; Start 09/18/19 at 08:30; Stop 09/18/19 at 08:31; Status DC Albuterol Sulfate (Ventolin Neb Soln) 2.5 mg RTQID NEB Last administered on 09/20/19at 11:41; Start 09/18/19 at 20:00 Albuterol Sulfate (Ventolin Neb Soln) 2.5 mg 1X ONCE NEB Last administered on 09/18/19at 18:11; Start 09/18/19 at 18:15; Stop 09/18/19 at 18:16; Status DC Vancomycin HCl 1 gm/Sodium Chloride 250 ml @ 250 mls/hr Q8H IV Last administered on 09/19/19at 04:21; Start 09/18/19 at 20:00; Stop 09/19/19 at 11:16; Status DC Atenolol (Tenormin) 50 mg HS PO ; Start 09/20/19 at 21:00 Isosorbide Mononitrate (Imdur) 30 mg DAILY PO Last administered on 09/20/19at 10:59; Start 09/20/19 at 11:00 Metformin HCl (Glucophage Xr) 500 mg BIDWMEALS PO ; Start 09/20/19 at 17:00 Fish Oil (Fish Oil) 1,000 mg DAILY PO ; Start 09/20/19 at 11:00 Cyclobenzaprine HCl (Flexeril) 10 mg TID PO ; Start 2/12/20 at 14:00 Diphenhydramine HCl (Benadryl) 25 mg PRN Q6HRS PRN PO ITCHING; Start 09/20/19 at 11:00 Gabapentin (Neurontin) 600 mg TID PO ; Start 09/20/19 at 14:00 Cetirizine HCl (ZyrTEC) 10 mg DAILY PO ; Start 09/20/19 at 11:00 Losartan Potassium (Cozaar) 50 mg DAILY PO ; Start 09/20/19 at 11:30 Multivitamins (Thera M Plus) 1 tab DAILY PO ; Start 09/20/19 at 11:00 Ketotifen Fumarate (Zaditor) 1 drop BID OU ; Start 09/20/19 at 21:00 Famotidine (Pepcid) 20 mg QHS PO ; Start 09/20/19 at 21:00 Acetaminophen/ Aspirin/Caffeine (Excedrin Migraine) 1 tab PRN Q6HRS PRN PO MIGRAINE HEADACHE Last administered on 09/20/19at 10:58; Start 09/20/19 at 10:45 Hydrochlorothiazide (Microzide) 12.5 mg DAILY PO ; Start 09/20/19 at 11:30 Active Scripts Active Reported Aspirin Ec (Aspirin) 81 Mg Tablet.dr 1 Tab PO DAILY Levothyroxine Sodium 112 Mcg Tablet 1 Tab PO DAILY Multi Vitamin Daily (Multivitamin) 1 Each Tablet 1 Tab PO DAILY 30 Days Fish Oil 1,000 Mg Softgel ([place]-3 Fatty Acids/Fish Oil) 1 Each Capsule 1 Cap PO DAILY 30 Days Ranitidine Hcl 300 Mg Tablet 1 Tab PO QHS [place] (Olopatadine HCl) 2.5 Ml Drops 2.5 Ml OP DAILY Losartan-Hctz 50-12.5 Mg Tab (Losartan/Hydrochlorothiazide) 1 Each Tablet 1 Tab PO DAILY Levetiracetam 500 Mg Tablet 1 Tab PO BID Metformin Hcl Er (Metformin Hcl) 500 Mg Tab.er.24h 500 Mg PO BIDWMEALS Atenolol 50 Mg Tablet 1 Tab PO HS Diphenhydramine Hcl 25 Mg Tablet 25 Mg PO PRN PRN Loratadine 10 Mg Tab.rapdis 1 Tab PO DAILY 30 Days Baclofen 10 Mg Tablet 1 Tab PO BID Isosorbide Mononitrate Er (Isosorbide Mononitrate) 30 Mg Tab.er.24h 1 Tab PO DAILY Zoloft (Sertraline Hcl) 100 Mg Tablet 1 Tab PO DAILY Atorvastatin Calcium 40 Mg Tablet 1 Tab PO DAILY Gabapentin 600 Mg Tablet 600 Mg PO TID Vitals/I & O Vital Sign - Last 24 Hours 09/19/19 09/19/19 09/19/19 09/19/19 14:57 19:00 19:34 20:00 Temp 98.0 98.0 98.0 98.0 Pulse 74 78 Resp 16 16 18 B/P (MAP) 142/80 (100) 158/89 (112) Pulse Ox 91 92 92 O2 Delivery Nasal Cannula Nasal Cannula Nasal Cannula O2 Flow Rate 2.0 2.0 3.0 09/19/19 09/20/19 09/20/19 09/20/19 23:00 03:00 04:11 05:11 Temp 98.4 99.2 98.4 99.2 Pulse 64 79 Resp 16 16 18 20 B/P (MAP) 151/94 (113) 162/93 (116) Pulse Ox 92 92 92 O2 Delivery Nasal Cannula Room Air O2 Flow Rate 2.0 09/20/19 09/20/19 09/20/19 09/20/19 07:00 07:55 08:00 10:21 Temp 98.2 98.2 Pulse 66 Resp 18 24 B/P (MAP) 144/75 (98) Pulse Ox 93 93 90 O2 Delivery Nasal Cannula Nasal Cannula Nasal Cannula Nasal Cannula O2 Flow Rate 3.0 3.0 5.0 5.0 09/20/19 09/20/19 09/20/19 09/20/19 10:59 10:59 11:21 11:43 Temp 98.0 98.0 Pulse 98 67 Resp 18 22 B/P (MAP) 159/90 140/90 (107) Pulse Ox 90 92 O2 Delivery Nasal Cannula Nasal Cannula Nasal Cannula O2 Flow Rate 5.0 5.0 Intake and Output 09/19/19 09/19/19 09/20/19 15:00 23:00 07:00 Intake Total 1600 ml 300 ml Output Total 500 ml 2200 ml Balance 1100 ml 300 ml -2200 ml LAY BUSCH MD Sep 20, 2019 13:07
--- NOTE | 2019-09-20 13:18 | NUR ---
SW following. Discussed with RN, pt is from [place]. Dr. Medina's note states pt can discharge home if cleared by PT/OT - PT/OT recommending home. SW needing clarification of whether pt is needing oxygen at discharge or not. SW will continue to follow. RN notified.
--- NOTE | 2019-09-20 14:50 | PDOC ---
PROGRESS NOTES Chief Complaint Chief Complaint chronic encephalopathy, has hx of TBI acute hypoxic respiratory mikaiulre, now on 5 liters AK weakness and debility, acquired Sepsis, POA Presumptive UTI URINE CULTURE RES 1 Preliminary Escherichia coli Hx of Brain Tumor on Seizure ppx HTN DM Hypothyroidism GERD History of Present Illness History of Present Illness hypoxia getting worse, will check CXR, pa and lateral consujlt PULM 64 year old BF with hx of HTN, HLD, GERD, DM, prior brain tumor sx on keppra for seizur ppx who is from [facility] visiting her daughter and baby here in [place]. patient seen last in her normal state around 2 pm yesterday and found by her daughter this AM confused since this AM per son who was at the bedside providing as much history as he can. he also notes that patient was in bed most of the day yesterday. noted temp of 102.2 upon arrival. patient appears very lethargic and answers questions minimally. no reported cough, dysuria, chest pain, sob, nausea vomiting diarrhea. no reported illicit drug use. has had adequate PO intake per son. patient usually more alert and awake and per son, this is not her normal self. no prior hx of stroke. no reported seizure activity per family. takes all medications as prescribed. neuro consulted if LP negative and still altered, will consider MRI brain full code Vitals Vitals Vital Signs Date Time Temp Pulse Resp B/P (MAP) Pulse Ox O2 Delivery O2 Flow Rate FiO2 09/20/19 11:43 92 Nasal Cannula 5.0 09/20/19 11:21 22 09/20/19 10:59 98.0 67 140/90 (107) 98.0 Physical Exam Physical Exam GENERAL: confused, lethargic HEENT: Head normocephalic, atraumatic. NECK: Supple LUNGS: Clear to auscultation. HEART: RRR, S1, S2 present, pulses intact ABDOMEN: Soft, positive bowel sounds. EXTREMITIES: No cyanosis or edema. NEUROLOGIC: patient altered, normal pupils. does not follow commands PSYCHIATRIC: Normal affect, normal mood. SKIN: No ulceration. General: Cooperative, Other (poor recalll) Heart: Normal S1 Abdomen: Normal bowel sounds Labs LABS Laboratory Tests Test 09/19/19 16:13 09/19/19 20:53 09/20/19 07:21 09/20/19 11:36 Glucose (Fingerstick) 104 mg/dL (70-99) 127 mg/dL (70-99) 93 mg/dL (70-99) 99 mg/dL (70-99) Assessment and Plan Assessmemt and Plan Problems Medical Problems: (1) Altered level of consciousness Status: Acute (2) Fever Status: Acute (3) SIRS (systemic inflammatory response syndrome) Status: Acute Comment Review of Relevant I have reviewed the following items rhonda (where applicable) has been applied. Labs Laboratory Tests Test 09/18/19 16:53 09/18/19 21:01 09/19/19 07:14 09/19/19 11:05 Glucose (Fingerstick) 113 mg/dL (70-99) 110 mg/dL (70-99) 109 mg/dL (70-99) 135 mg/dL (70-99) Test 09/19/19 16:13 09/19/19 20:53 09/20/19 07:21 09/20/19 11:36 Glucose (Fingerstick) 104 mg/dL (70-99) 127 mg/dL (70-99) 93 mg/dL (70-99) 99 mg/dL (70-99) Laboratory Tests Test 09/19/19 16:13 09/19/19 20:53 09/20/19 07:21 09/20/19 11:36 Glucose (Fingerstick) 104 mg/dL (70-99) 127 mg/dL (70-99) 93 mg/dL (70-99) 99 mg/dL (70-99) Microbiology 09/14/19 Blood Culture - Final, Complete NO GROWTH AFTER 5 DAYS 09/14/19 Urine Culture - Final, Complete 09/14/19 Urine Culture Result 1 (ELIZABETH) - Final, Complete 09/14/19 Antimicrobic Susceptibility - Final, Complete Medications Current Medications Sodium Chloride 1,000 ml @ 1,000 mls/hr Q1H IV Last administered on 09/14/19at 17:05; Start 09/14/19 at 16:34; Stop 09/14/19 at 17:33; Status DC Acetaminophen (Tylenol Supp) 650 mg 1X ONCE NC Last administered on 09/14/19at 17:05; Start 09/14/19 at 16:45; Stop 09/14/19 at 16:53; Status DC Sodium Chloride 1,000 ml @ 2,000 mls/hr Q1H IV ; Start 09/14/19 at 17:30; Stop 09/14/19 at 18:13; Status DC Piperacillin Sod/ Tazobactam Sod 3.375 gm/Sodium Chloride 50 ml @ 100 mls/hr 1X ONCE IV Last administered on 09/14/19 18:23; Start 09/14/19 at 17:30; Stop 09/14/19 at 17:59; Status DC Iohexol (Omnipaque 350 Mg/ml) 60 ml 1X ONCE IV Last administered on 09/14/19at 17:43; Start 09/14/19 at 17:30; Stop 09/14/19 at 17:31; Status DC Sodium Chloride 1,000 ml @ 1,000 mls/hr 1X ONCE IV Last administered on 09/14/19at 18:24; Start 09/14/19 at 18:15; Stop 09/14/19 at 19:14; Status DC Acetaminophen (Tylenol) 1,000 mg 1X ONCE PO Last administered on 09/14/19at 18:51; Start 09/14/19 at 18:30; Stop 09/14/19 at 18:31; Status DC Ibuprofen (Motrin) 800 mg 1X ONCE PO Last administered on 09/14/19 18:51; Start 09/14/19 at 18:30; Stop 09/14/19 at 18:31; Status DC Ceftriaxone Sodium (Rocephin) 2 gm 1X ONCE IVP Last administered on 09/14/19at 19:33; Start 09/14/19 at 19:00; Stop 09/14/19 at 19:03; Status DC Vancomycin HCl 250 ml @ 250 mls/hr 1X ONCE IV ; Start 09/14/19 at 19:00; Stop 09/14/19 at 19:59; Status UNV Vancomycin HCl 1.75 gm/Sodium Chloride 500 ml @ 250 mls/hr 1X ONCE IV Last administered on 09/14/19at 19:41; Start 09/14/19 at 19:15; Stop 09/14/19 at 21:14; Status DC Ondansetron HCl (Zofran) 4 mg PRN Q8HRS PRN IV NAUSEA/VOMITING Last administered on 09/14/19at 19:49; Start 09/14/19 at 19:30; Stop 09/15/19 at 19:29; Status DC Morphine Sulfate (Morphine Sulfate) 2 mg PRN Q2HR PRN IV PAIN Last administered on 09/15/19at 18:47; Start 09/14/19 at 19:30; Stop 09/15/19 at 19:29; Status DC Acetaminophen (Tylenol) 650 mg PRN Q4HRS PRN PO FEVER; Start 09/14/19 at 19:30; Stop 09/15/19 at 19:29; Status DC Sodium Chloride 1,000 ml @ 100 mls/hr Q10H IV Last administered on 09/20/19at 00:52; Start 09/14/19 at 23:30 Al Hydroxide/Mg Hydroxide (Mylanta Plus Xs) 30 ml PRN DAILY PRN PO HEARTBURN / GAS; Start 09/14/19 at 22:30 Vancomycin HCl (Vanco Per Pharmacy) 1 each PRN DAILY PRN MC SEE COMMENTS Last administered on 09/18/19at 19:52; Start 09/14/19 at 22:45; Stop 09/19/19 at 11:16; Status DC Ceftriaxone Sodium (Rocephin) 2 gm Q24H IVP ; Start 09/14/19 at 23:00; Stop 09/14/19 at 22:43; Status DC Ceftriaxone Sodium (Rocephin) 2 gm Q24H IVP Last administered on 09/19/19at 20:14; Start 09/15/19 at 19:00 Insulin Human Lispro (HumaLOG) 0-5 UNITS TIDWMEALS SQ ; Start 09/15/19 at 08:00 Dextrose (Dextrose 50%-Water Syringe) 12.5 gm PRN Q15MIN PRN IV SEE COMMENTS; Start 09/14/19 at 23:00 Dextrose (Iv Dextrose 5%) 250 ml PRN Q15MIN PRN IV SEE COMMENTS; Start 09/14/19 at 23:00 Vancomycin HCl 1 gm/Sodium Chloride 250 ml @ 250 mls/hr Q24H IV Last administered on 09/15/19at 20:06; Start 09/15/19 at 20:00; Stop 09/16/19 at 20:29; Status DC Vancomycin HCl (Vancomycin Trough Level) 1 each 1X ONCE MC Last administered on 09/16/19at 19:30; Start 09/16/19 at 19:30; Stop 09/16/19 at 19:31; Status DC Aspirin (Ecotrin) 81 mg DAILY PO Last administered on 09/20/19 10:21; Start 09/15/19 at 12:00 Atorvastatin Calcium (Lipitor) 40 mg QHS PO Last administered on 09/19/19 22:11; Start 09/16/19 at 21:00 Levetiracetam (Keppra) 500 mg BID PO Last administered on 09/20/19 10:21; Start 09/15/19 at 12:00 Levothyroxine Sodium (Synthroid) 112 mcg DAILY PO Last administered on 09/20/19 10:21; Start 09/15/19 at 12:00 Sertraline HCl (Zoloft) 100 mg DAILY PO Last administered on 09/20/19 10:22; Start 09/15/19 at 12:00 Potassium Chloride (Klor-Con) 40 meq 1X ONCE PO Last administered on 09/15/19 18:42; Start 09/15/19 at 17:00; Stop 09/15/19 at 17:01; Status DC Ondansetron HCl (Zofran) 4 mg PRN Q6HRS PRN IVP NAUSEA/VOMITING Last administered on 09/20/19 10:58; Start 09/15/19 at 20:15 Morphine Sulfate (Morphine Sulfate) 2 mg PRN Q2HR PRN IV PAIN Last administered on 09/18/19 20:36; Start 09/15/19 at 20:15 Oxycodone/ Acetaminophen (Percocet 5/325) 1 tab PRN Q6HRS PRN PO PAIN Last administered on 09/20/19 10:21; Start 09/16/19 at 05:30 Lactobacillus Rhamnosus (Culturelle) 1 cap BID PO Last administered on 09/20/19 10:22; Start 09/16/19 at 21:00 Vancomycin HCl 1 gm/Sodium Chloride 250 ml @ 250 mls/hr Q12H IV Last adm inistered on 09/18/19 10:49; Start 09/16/19 at 21:00; Stop 09/18/19 at 19:50; Status DC Vancomycin HCl (Vancomycin Trough Level) 1 each 1X ONCE MC Last administered on 09/18/19 08:30; Start 09/18/19 at 08:30; Stop 09/18/19 at 08:31; Status DC Albuterol Sulfate (Ventolin Neb Soln) 2.5 mg RTQID NEB Last administered on 09/20/19at 11:41; Start 09/18/19 at 20:00 Albuterol Sulfate (Ventolin Neb Soln) 2.5 mg 1X ONCE NEB Last administered on 09/18/19at 18:11; Start 09/18/19 at 18:15; Stop 09/18/19 at 18:16; Status DC Vancomycin HCl 1 gm/Sodium Chloride 250 ml @ 250 mls/hr Q8H IV Last administered on 09/19/19at 04:21; Start 09/18/19 at 20:00; Stop 09/19/19 at 11:16; Status DC Atenolol (Tenormin) 50 mg HS PO ; Start 09/20/19 at 21:00 Isosorbide Mononitrate (Imdur) 30 mg DAILY PO Last administered on 09/20/19at 10:59; Start 09/20/19 at 11:00 Metformin HCl (Glucophage Xr) 500 mg BIDWMEALS PO ; Start 09/20/19 at 17:00 Fish Oil (Fish Oil) 1,000 mg DAILY PO ; Start 09/20/19 at 11:00 Cyclobenzaprine HCl (Flexeril) 10 mg TID PO ; Start 09/20/19 at 14:00 Diphenhydramine HCl (Benadryl) 25 mg PRN Q6HRS PRN PO ITCHING; Start 09/20/19 at 11:00 Gabapentin (Neurontin) 600 mg TID PO ; Start 09/20/19 at 14:00 Cetirizine HCl (ZyrTEC) 10 mg DAILY PO ; Start 09/20/19 at 11:00 Losartan Potassium (Cozaar) 50 mg DAILY PO ; Start 09/20/19 at 11:30 Multivitamins (Thera M Plus) 1 tab DAILY PO ; Start 09/20/19 at 11:00 Ketotifen Fumarate (Zaditor) 1 drop BID OU ; Start 09/20/19 at 21:00 Famotidine (Pepcid) 20 mg QHS PO ; Start 09/20/19 at 21:00 Acetaminophen/ Aspirin/Caffeine (Excedrin Migraine) 1 tab PRN Q6HRS PRN PO MIGRAINE HEADACHE Last administered on 09/20/19at 10:58; Start 09/20/19 at 10:45 Hydrochlorothiazide (Microzide) 12.5 mg DAILY PO ; Start 09/20/19 at 11:30 Active Scripts Active Reported Aspirin Ec (Aspirin) 81 Mg Tablet.dr 1 Tab PO DAILY Levothyroxine Sodium 112 Mcg Tablet 1 Tab PO DAILY Multi Vitamin Daily (Multivitamin) 1 Each Tablet 1 Tab PO DAILY 30 Days Fish Oil 1,000 Mg Softgel (Means-3 Fatty Acids/Fish Oil) 1 Each Capsule 1 Cap PO DAILY 30 Days Ranitidine Hcl 300 Mg Tablet 1 Tab PO QHS Pazeo (Olopatadine HCl) 2.5 Ml Drops 2.5 Ml OP DAILY Losartan-Hctz 50-12.5 Mg Tab (Losartan/Hydrochlorothiazide) 1 Each Tablet 1 Tab PO DAILY Levetiracetam 500 Mg Tablet 1 Tab PO BID Metformin Hcl Er (Metformin Hcl) 500 Mg Tab.er.24h 500 Mg PO BIDWMEALS Atenolol 50 Mg Tablet 1 Tab PO HS Diphenhydramine Hcl 25 Mg Tablet 25 Mg PO PRN PRN Loratadine 10 Mg Tab.rapdis 1 Tab PO DAILY 30 Days Baclofen 10 Mg Tablet 1 Tab PO BID Isosorbide Mononitrate Er (Isosorbide Mononitrate) 30 Mg Tab.er.24h 1 Tab PO DAILY Zoloft (Sertraline Hcl) 100 Mg Tablet 1 Tab PO DAILY Atorvastatin Calcium 40 Mg Tablet 1 Tab PO DAILY Gabapentin 600 Mg Tablet 600 Mg PO TID Vitals/I & O Vital Sign - Last 24 Hours 09/19/19 09/19/19 09/19/19 09/19/19 14:57 19:00 19:34 20:00 Temp 98.0 98.0 98.0 98.0 Pulse 74 78 Resp 16 16 18 B/P (MAP) 142/80 (100) 158/89 (112) Pulse Ox 91 92 92 O2 Delivery Nasal Cannula Nasal Cannula Nasal Cannula O2 Flow Rate 2.0 2.0 3.0 09/19/19 09/20/19 09/20/19 09/20/19 23:00 03:00 04:11 05:11 Temp 98.4 99.2 98.4 99.2 Pulse 64 79 Resp 16 16 18 20 B/P (MAP) 151/94 (113) 162/93 (116) Pulse Ox 92 92 92 O2 Delivery Nasal Cannula Room Air O2 Flow Rate 2.0 09/20/19 09/20/19 09/20/19 09/20/19 07:00 07:55 08:00 10:21 Temp 98.2 98.2 Pulse 66 Resp 18 24 B/P (MAP) 144/75 (98) Pulse Ox 93 93 90 O2 Delivery Nasal Cannula Nasal Cannula Nasal Cannula Nasal Cannula O2 Flow Rate 3.0 3.0 5.0 5.0 09/20/19 09/20/19 09/20/19 09/20/19 10:59 10:59 11:21 11:43 Temp 98.0 98.0 Pulse 98 67 Resp 18 22 B/P (MAP) 159/90 140/90 (107) Pulse Ox 90 92 O2 Delivery Nasal Cannula Nasal Cannula Nasal Cannula O2 Flow Rate 5.0 5.0 Intake and Output 09/19/19 09/19/19 09/20/19 15:00 23:00 07:00 Intake Total 1600 ml 300 ml Output Total 500 ml 2200 ml Balance 1100 ml 300 ml -2200 ml CELINA STRANGE MD Sep 20, 2019 14:50
[2019-09-20 15:00] VITALS: BP 125/72
[2019-09-20] MEDS: CYCLOBENZAPRINE 10 MG TABLET. PO SCH ×2 (15:02→23:41)
[2019-09-20] MEDS: GABAPENTIN 300 MG CAPSULE. PO SCH ×2 (15:02→23:41)
[2019-09-20] MEDS: LOSARTAN POTASSIUM 50 MG TABLET. PO SCH (15:02)
[2019-09-20] MEDS: hydroCHLOROthiazide 12.5 MG CAPSULE PO SCH (15:02)
--- NOTE | 2019-09-20 15:36 | RAD ---
CHEST PA LATERAL Clinical indications: Hypoxia COMPARISON: September 14, 2019. Findings: Moderate bilateral interstitial pulmonary edema is seen more prominent within the lung bases. Small bilateral pleural effusions are seen as well. No pneumothorax is seen. Findings are consistent with moderate CHF. However the heart size is normal. Therefore this could be secondary to fluid overload/renal failure. The mediastinum and pulmonary vasculature and both nia are unremarkable. The osseous structures appear intact. Impression: Moderate CHF or fluid overload. Electronically signed by: Gurinder Payton MD (09/20/2019 3:33 PM) [facility]
[2019-09-20] MEDS: IPRATRPIUM/ALBUTEROL 0.5/2.5MG 3 ML NEBU. NEB SCH ×2 (15:48→20:30)
[2019-09-20] MEDS ORDERED: POTASSIUM CHLORIDE 20 MEQ TABLET.ER. PO ONE (17:30)
[2019-09-20] MEDS ORDERED: FUROSEMIDE 20 MG/2 ML VIAL. IVP ONE (17:30)
--- NOTE | 2019-09-20 17:31 | PDOC ---
PULMONARY PROGRESS NOTES Vitals Vital Signs Date Time Temp Pulse Resp B/P (MAP) Pulse Ox O2 Delivery O2 Flow Rate FiO2 09/20/19 15:50 92 Nasal Cannula 5.0 09/20/19 15:02 64 125/74 09/20/19 15:00 98.0 16 98.0 Labs Laboratory Tests Test 09/18/19 21:01 09/19/19 07:14 09/19/19 11:05 09/19/19 16:13 Glucose (Fingerstick) 110 mg/dL (70-99) 109 mg/dL (70-99) 135 mg/dL (70-99) 104 mg/dL (70-99) Test 09/19/19 20:53 09/20/19 07:21 09/20/19 11:36 09/20/19 16:54 Glucose (Fingerstick) 127 mg/dL (70-99) 93 mg/dL (70-99) 99 mg/dL (70-99) 100 mg/dL (70-99) Laboratory Tests Test 09/19/19 20:53 09/20/19 07:21 09/20/19 11:36 09/20/19 16:54 Glucose (Fingerstick) 127 mg/dL (70-99) 93 mg/dL (70-99) 99 mg/dL (70-99) 100 mg/dL (70-99) Medications Active Scripts Medications Dose Route/Sig Max Daily Dose Days Date Category Aspirin Ec (Aspirin) 81 Mg Tablet.dr 1 Tab PO DAILY 09/15/19 Reported Levothyroxine Sodium 112 Mcg Tablet 1 Tab PO DAILY 09/15/19 Reported Multi Vitamin Daily (Multivitamin) 1 Each Tablet 1 Tab PO DAILY 30 09/15/19 Reported Fish Oil 1,000 Mg Softgel ([place]-3 Fatty Acids/Fish Oil) 1 Each Capsule 1 Cap PO DAILY 30 09/15/19 Reported Ranitidine Hcl 300 Mg Tablet 1 Tab PO QHS 09/15/19 Reported Pazeo (Olopatadine HCl) 2.5 Ml Drops 2.5 Ml OP DAILY 09/15/19 Reported Losartan-Hctz 50-12.5 Mg Tab (Losartan/Hydrochlorothiazide) 1 Each Tablet 1 Tab PO DAILY 09/15/19 Reported Levetiracetam 500 Mg Tablet 1 Tab PO BID 09/15/19 Reported Metformin Hcl Er (Metformin Hcl) 500 Mg Tab.er.24h 500 Mg PO BIDWMEALS 09/15/19 Reported Atenolol 50 Mg Tablet 1 Tab PO HS 09/15/19 Reported Diphenhydramine Hcl 25 Mg Tablet 25 Mg PO PRN PRN 09/15/19 Reported Loratadine 10 Mg Tab.rapdis 1 Tab PO DAILY 30 09/15/19 Reported Baclofen 10 Mg Tablet 1 Tab PO BID 09/15/19 Reported Isosorbide Mononitrate Er (Isosorbide Mononitrate) 30 Mg Tab.er.24h 1 Tab PO DAILY 09/15/19 Reported Zoloft (Sertraline Hcl) 100 Mg Tablet 1 Tab PO DAILY 09/15/19 Reported Atorvastatin Calcium 40 Mg Tablet 1 Tab PO DAILY 09/15/19 Reported Gabapentin 600 Mg Tablet 600 Mg PO TID 09/15/19 Reported Impression . HYPOXEMIA ABNORMAL CXR POSSIBLE ASP PNEUMONIA, I THINK THIS IS MORE ACUTE PULMONARY EDEMA SEE ORDERS SIMEON SMITH MD Sep 20, 2019 17:31
[2019-09-20] MEDS: metFORMIN XR 500 MG TAB.ER.24H PO SCH (18:18)
[2019-09-20] MEDS: cefTRIAXone IV Push 2 GM VIAL. IVP SCH (18:19)
--- NOTE | 2019-09-20 18:27 | RAD ---
AP chest. HISTORY: CHF AP view was taken of the chest. There are bilateral pleural effusions. There is mild vascular congestion. There is atelectasis or infiltrate or edema in the lung bases. Pattern is similar to the study from earlier today although effusions may have mildly increased. IMPRESSION: 1. Mild increased bilateral pleural effusions. 2. Persistent mild vascular congestion. Electronically signed by: Hank Vallejo MD (09/20/2019 6:24 PM) [id number]
[2019-09-20 19:00] VITALS: BP 132/77
--- NOTE | 2019-09-20 21:27 | CONS ---
DATE OF CONSULTATION: 09/20/2019 ATTENDING PHYSICIAN: Gabino Sanchez MD REASON FOR CONSULTATION: The patient seen in pulmonary consultation at the request of Dr. Arita for hypoxemia. HISTORY OF PRESENT ILLNESS: The patient is a 64-year-old that was admitted on 09/14/2019 with multiple comorbidities including brain tumor. She recently had surgery last year some time. She initially was diagnosed back in 2007. She is on Keppra for seizure prophylaxis, was visiting her daughter from [place]. The patient became confused. She had a temperature initially of 102.2. She was lethargic, unable to answer questions upon admission. She is now awake, alert, following command. She has a cough, mostly nonproductive. She was noted to be hypoxic. A chest x-ray was reviewed from 09/20. In comparison to the film of 09/14, there has been moderate bilateral interstitial edema. compatible with fluid overload. She eventually was diagnosed with E. coli UTI. She has been treated for E. coli UTI. She is now feeling better except for the hypoxemia and abnormal x-ray. PAST MEDICAL HISTORY: 1. Brain tumor diagnosed in 2007. She underwent surgical intervention and chemo. She had recurrence recently, underwent surgery again 2. Dysphagia, status post esophageal dilatation. 3. Status post thyroidectomy. 4. Previous cervical surgery. 5. History of tobacco use, possible COPD. 6. Hypertension. 7. Gastroesophageal reflux. 8. Hyperlipidemia. PAST SURGICAL HISTORY: Status post craniotomy for brain tumor resection. FAMILY HISTORY: Noncontributory in this case. SOCIAL HISTORY: Currently not smoking. REVIEW OF SYSTEMS: As indicated above, otherwise, a 10-point system was reviewed and negative. PHYSICAL EXAMINATION: VITAL SIGNS: Stable. O2 saturation was greater than greater than 92% on 2 liters. HEENT: Eyes, the sclerae were nonicteric. NECK: Jugular venous distention was not elevated. No lymphadenopathy. CHEST: Full expansion. LUNGS: Adequate flow with no wheezes. Some crackles. CARDIOVASCULAR: Regular rate and rhythm with S1, S2, no S3. ABDOMEN: Soft, nontender, nondistended. EXTREMITIES: No clubbing, cyanosis or edema. NEUROLOGIC: The patient was awake, alert, following commands. A detailed neuro exam was not performed. LABORATORY DATA: White count was elevated. Hemoglobin and hematocrit were noted. Electrolytes were noted. BUN and creatinine noted. Serology for influenza was negative. C. difficile was negative. UA was noted. IMPRESSION: 1. Abnormal x-ray compatible with fluid overload. The patient does not give a history of prior congestive heart failure. This could be related to the fluids that she has received since admission. 2. Possible aspiration pneumonia. 3. Escherichia coli urinary tract infection. 4. Toxic metabolic encephalopathy. 5. Hypoxemia secondary to #1 and #2. 6. History of brain tumor. 7. Other comorbidities as indicated above. PLAN: 1. We will give one time Lasix. 2. Echocardiogram. 3. Discontinue IV fluids. 4. Follow clinical course and make adjustments as deemed necessary. SIMEON SMITH MD DR: TOÑO/cristina JOB#: [id number] / [id number]
[2019-09-20 23:00] VITALS: BP 135/85
[2019-09-20] MEDS: KETOTIFEN FUMARATE 0.025% OPHTH SOLUTION BOTTLE. OU SCH (23:39)
[2019-09-20] MEDS: ATENOLOL 50 MG TABLET. PO SCH (23:40)
[2019-09-20] MEDS: FAMOTIDINE 20 MG TABLET. PO SCH (23:41)
[2019-09-20] MEDS: ATORVASTATIN CALCIUM 40 MG TABLET. PO SCH (23:41)
[2019-09-21 03:00] VITALS: BP 123/72
[2019-09-21 06:02] LABS: ALBUMIN 2.9 g/dL (3.4-5.0); ALBUMIN/GLOBULIN RATIO 0.7 (1.0-1.7); CALCIUM 8.4 mg/dL (8.5-10.1); CREATININE 0.8 mg/dL (0.6-1.0); GFR 87.7; POTASSIUM 3.2 mmol/L (3.5-5.1); TOTAL BILIRUBIN 0.2 mg/dL (0.2-1.0); TOTAL PROTEIN 7.2 g/dL (6.4-8.2)
[2019-09-21 07:00] VITALS: BP 120/65
[2019-09-21] MEDS: ALBUTEROL SULFATE 2.5 MG/3 ML NEBU. NEB SCH ×3 (08:00→15:52)
[2019-09-21] MEDS: INSULIN LISPRO 300 UNITS/3 ML VIAL. SQ SCH ×3 (08:00→17:00)
[2019-09-21] MEDS ORDERED: POTASSIUM CHLORIDE 20 MEQ TABLET.ER. PO SCH (08:00)
--- NOTE | 2019-09-21 08:43 | PDOC ---
PULMONARY PROGRESS NOTES Subjective PT FEELS LESS SOA Vitals Vital Signs Date Time Temp Pulse Resp B/P (MAP) Pulse Ox O2 Delivery O2 Flow Rate FiO2 09/21/19 07:57 90 Nasal Cannula 5.0 09/21/19 07:00 98.4 60 18 120/65 (83) 98.4 ROS: No Nausea, No Chest Pain, No Abdominal Pain, No Increase Cough General: Alert Lungs: Crackles Cardiovascular: S1, S2 Abdomen: Soft Neuro Exam: Alert Extremities: No Edema Skin: Warm Labs Laboratory Tests Test 09/19/19 11:05 09/19/19 16:13 09/19/19 20:53 09/20/19 07:21 Glucose (Fingerstick) 135 mg/dL (70-99) 104 mg/dL (70-99) 127 mg/dL (70-99) 93 mg/dL (70-99) Test 09/20/19 11:36 09/20/19 16:54 09/20/19 20:03 09/21/19 04:50 Glucose (Fingerstick) 99 mg/dL (70-99) 100 mg/dL (70-99) 143 mg/dL (70-99) Sodium Level 145 mmol/L (136-145) Potassium Level 3.2 mmol/L (3.5-5.1) Chloride Level 103 mmol/L (98-107) Carbon Dioxide Level 34 mmol/L (21-32) Anion Gap 8 (6-14) Blood Urea Nitrogen 2 mg/dL (7-20) Creatinine 0.8 mg/dL (0.6-1.0) Estimated GFR (Cockcroft-Gault) 87.7 BUN/Creatinine Ratio 3 (6-20) Glucose Level 90 mg/dL (70-99) Calcium Level 8.4 mg/dL (8.5-10.1) Total Bilirubin 0.2 mg/dL (0.2-1.0) Aspartate Amino Transf (AST/SGOT) 45 U/L (15-37) Alanine Aminotransferase (ALT/SGPT) 85 U/L (14-59) Alkaline Phosphatase 65 U/L (46-116) Total Protein 7.2 g/dL (6.4-8.2) Albumin 2.9 g/dL (3.4-5.0) Albumin/Globulin Ratio 0.7 (1.0-1.7) Test 09/21/19 07:46 Glucose (Fingerstick) 86 mg/dL (70-99) Laboratory Tests Test 09/20/19 11:36 09/20/19 16:54 09/20/19 20:03 09/21/19 04:50 Glucose (Fingerstick) 99 mg/dL (70-99) 100 mg/dL (70-99) 143 mg/dL (70-99) Sodium Level 145 mmol/L (136-145) Potassium Level 3.2 mmol/L (3.5-5.1) Chloride Level 103 mmol/L (98-107) Carbon Dioxide Level 34 mmol/L (21-32) Anion Gap 8 (6-14) Blood Urea Nitrogen 2 mg/dL (7-20) Creatinine 0.8 mg/dL (0.6-1.0) Estimated GFR (Cockcroft-Gault) 87.7 BUN/Creatinine Ratio 3 (6-20) Glucose Level 90 mg/dL (70-99) Calcium Level 8.4 mg/dL (8.5-10.1) Total Bilirubin 0.2 mg/dL (0.2-1.0) Aspartate Amino Transf (AST/SGOT) 45 U/L (15-37) Alanine Aminotransferase (ALT/SGPT) 85 U/L (14-59) Alkaline Phosphatase 65 U/L (46-116) Total Protein 7.2 g/dL (6.4-8.2) Albumin 2.9 g/dL (3.4-5.0) Albumin/Globulin Ratio 0.7 (1.0-1.7) Test 09/21/19 07:46 Glucose (Fingerstick) 86 mg/dL (70-99) Medications Active Scripts Medications Dose Route/Sig Max Daily Dose Days Date Category Aspirin Ec (Aspirin) 81 Mg Tablet.dr 1 Tab PO DAILY 09/15/19 Reported Levothyroxine Sodium 112 Mcg Tablet 1 Tab PO DAILY 09/15/19 Reported Multi Vitamin Daily (Multivitamin) 1 Each Tablet 1 Tab PO DAILY 30 09/15/19 Reported Fish Oil 1,000 Mg Softgel ([place]-3 Fatty Acids/Fish Oil) 1 Each Capsule 1 Cap PO DAILY 30 09/15/19 Reported Ranitidine Hcl 300 Mg Tablet 1 Tab PO QHS 09/15/19 Reported Pazeo (Olopatadine HCl) 2.5 Ml Drops 2.5 Ml OP DAILY 09/15/19 Reported Losartan-Hctz 50-12.5 Mg Tab (Losartan/Hydrochlorothiazide) 1 Each Tablet 1 Tab PO DAILY 09/15/19 Reported Levetiracetam 500 Mg Tablet 1 Tab PO BID 09/15/19 Reported Metformin Hcl Er (Metformin Hcl) 500 Mg Tab.er.24h 500 Mg PO BIDWMEALS 09/15/19 Reported Atenolol 50 Mg Tablet 1 Tab PO HS 09/15/19 Reported Diphenhydramine Hcl 25 Mg Tablet 25 Mg PO PRN PRN 09/15/19 Reported Loratadine 10 Mg Tab.rapdis 1 Tab PO DAILY 30 09/15/19 Reported Baclofen 10 Mg Tablet 1 Tab PO BID 09/15/19 Reported Isosorbide Mononitrate Er (Isosorbide Mononitrate) 30 Mg Tab.er.24h 1 Tab PO DAILY 09/15/19 Reported Zoloft (Sertraline Hcl) 100 Mg Tablet 1 Tab PO DAILY 09/15/19 Reported Atorvastatin Calcium 40 Mg Tablet 1 Tab PO DAILY 09/15/19 Reported Gabapentin 600 Mg Tablet 600 Mg PO TID 09/15/19 Reported Impression . IMPRESSION: 1. Abnormal x-ray compatible with fluid overload. The patient does not give a history of prior congestive heart failure. This could be related to the fluids that she has received since admission. 2. Possible aspiration pneumonia. 3. Escherichia coli urinary tract infection. 4. Toxic metabolic encephalopathy. 5. Hypoxemia secondary to #1 and #2. 6. History of brain tumor. 7. Other comorbidities as indicated above. <Conclusion> The left ventricular systolic function is normal and the ejection fraction is within normal range. The Ejection Fraction is 60-65%. There is normal LV segmental wall motion. There is mild to moderate left pleural effusion visualized. Plan . echo report noted normal EF anticipate dc in am CXR TODAY IS BETTER K STILL LOW WILL REPLACE SIMEON SMITH MD Sep 21, 2019 08:43
[2019-09-21] MEDS: hydroCHLOROthiazide 12.5 MG CAPSULE PO SCH (09:23)
[2019-09-21] MEDS: ASPIRIN ENTERIC COATED 81 MG TABLET.DR. PO SCH (09:23)
[2019-09-21] MEDS: metFORMIN XR 500 MG TAB.ER.24H PO SCH ×2 (09:23→17:46)
[2019-09-21] MEDS: CYCLOBENZAPRINE 10 MG TABLET. PO SCH ×3 (09:23→22:25)
[2019-09-21] MEDS: LACTOBACILLUS RHAMNOSUS GG 1 CAPSULE. PO SCH ×2 (09:25→22:25)
[2019-09-21] MEDS: CETIRIZINE HCL 10 MG TABLET. PO SCH (09:25)
[2019-09-21] MEDS: LEVOTHYROXINE 112 MCG TABLET PO SCH (09:26)
[2019-09-21] MEDS: OMEGA-3 FATTY ACIDS/FISH OIL 1,000 MG CAPSULE. PO SCH (09:27)
[2019-09-21] MEDS: oxyCODONE/APAP 5/325 1 TAB TABLET PO PRN ×2 (09:27→19:29)
[2019-09-21] MEDS: levETIRAcetam 500 MG TABLET PO SCH ×2 (09:28→22:25)
--- NOTE | 2019-09-21 09:28 | CARD ---
MR#: [id number] Date of Study: 09/21/2019 Ordering Physician: SIMEON SMITH, Referring Physician: SIMEON SMITH, Tech: Nilda Villafuerte NICK APPROVED REPORT EXAM: Two-dimensional and M-mode echocardiogram with Doppler and color Doppler. Other Information Quality : AverageHR: 63bpm Rhythm : NSR INDICATION AMS, SIRS, CHF? RISK FACTORS Hypertension Hyperlipidemia Diabetes 2D DIMENSIONS RVDd2.9 (2.9-3.5cm)Left Atrium(2D)3.4 (1.6-4.0cm) IVSd1.0 (0.7-1.1cm)Aortic Root(2D)3.1 (2.0-3.7cm) LVDd4.2 (3.9-5.9cm)LVOT Diameter2.0 (1.8-2.4cm) PWd1.0 (0.7-1.1cm)LVDs2.4 (2.5-4.0cm) FS (%) 42.3 %SV56.7 ml LVEF(%)73.8 (>50%) Aortic Valve AoV Peak Issac.163.4cm/Santo Peak GR.10.7mmHg LVOT Peak Issac.113.2cm/sAVA (VMAX)2.10cm2 Mitral Valve MV E Bdgtnxld965.7cm/sMV DECEL [id number] MV A Hocecxff135.3cm/sE/A Ratio1.2 Pulmonary Valve PV Peak Cmcbkopi892.8cm/s Tricuspid Valve TR P. Ideyvbdf141og/sRAP [id number] TR Peak Gr.[id number] Pulmonary Vein S1 Drblddxv92.1cm/sD2 Ohiycwmr54.1cm/s PVa [id number] LEFT VENTRICLE The left ventricle is normal size. There is normal left ventricular wall thickness. The left ventricu lar systolic function is normal and the ejection fraction is within normal range. The Ejection Fracti on is 60-65%. There is normal LV segmental wall motion. The left ventricular diastolic function and f illing is normal for age. There is no ventricular septal defect visualized. RIGHT VENTRICLE The right ventricle is normal size. There is normal right ventricular wall thickness. The right ventr icular systolic function is normal. ATRIA The left atrium size is normal. The right atrium size is normal. The interatrial septum is intact wit h no evidence for an atrial septal defect or patent foramen ovale as noted on 2-D or Doppler imaging. AORTIC VALVE The aortic valve is mildly sclerotic. Doppler and Color Flow revealed trace aortic regurgitation. The re is no significant aortic valvular stenosis. MITRAL VALVE The mitral valve is normal in structure and function. There is no evidence of mitral valve prolapse. There is no mitral valve stenosis. Doppler and Color-flow revealed trace mitral regurgitation. TRICUSPID VALVE The tricuspid valve is normal in structure and function. Doppler and Color Flow revealed trace tricus pid regurgitation. PAP is estimated at 35 mmHg. There is no tricuspid valve stenosis. PULMONIC VALVE The pulmonary valve is normal in structure and function. Doppler and Color Flow revealed mild pulmoni c valvular regurgitation. There is no pulmonic valvular stenosis. GREAT VESSELS The aortic root is normal in size. The ascending aorta is normal in size. The pulmonary artery is nor mal. The IVC is normal in size and collapses >50% with inspiration. PERICARDIAL EFFUSION There is mild to moderate left pleural effusion visualized. There is no evidence of significant peric ardial effusion. Critical Notification Critical Value: No <Conclusion> The left ventricular systolic function is normal and the ejection fraction is within normal range. Th e Ejection Fraction is 60-65%. There is normal LV segmental wall motion. There is mild to moderate left pleural effusion visualized. Signed by : Kvng Mills, Electronically Approved : 09/21/2019 09:28:10
[2019-09-21] MEDS: SERTRALINE 50 MG TABLET. PO SCH (09:33)
[2019-09-21] MEDS: ISOSORBIDE MONONITRATE ER 30 MG TAB.ER.24H PO SCH (09:34)
[2019-09-21] MEDS: LOSARTAN POTASSIUM 50 MG TABLET. PO SCH (09:35)
[2019-09-21] MEDS: GABAPENTIN 300 MG CAPSULE. PO SCH ×3 (09:36→22:25)
[2019-09-21] MEDS: MULTIVITAMIN with MINERAL TABLET. PO SCH (09:38)
[2019-09-21] MEDS: KETOTIFEN FUMARATE 0.025% OPHTH SOLUTION BOTTLE. OU SCH ×2 (09:55→22:25)
--- NOTE | 2019-09-21 10:49 | PDOC ---
PROGRESS NOTES Chief Complaint Chief Complaint IMPRESSION chronic encephalopathy, hx of TBI acute hypoxic respiratory mikaimars, now on 5 liters NH weakness and debility, acquired Sepsis, POA Presumptive UTI URINE CULTURE RES 1 Preliminary Escherichia coli Hx of Brain Tumor on Seizure ppx HTN DM Hypothyroidism GERD HYPOXIC RESPIRATORY FAILURE, not improved History of Present Illness History of Present Illness hypoxia getting worse, consujlt PULM 64 year old BF with hx of HTN, HLD, GERD, DM, prior brain tumor sx on keppra for seizure ppx who is from [facility] visiting her daughter and baby here in [place]. patient seen last in her normal state around 2 pm yesterday and found by her daughter this AM confused since this AM per son who was at the bedside providing as much history as he can. he also notes that patient was in bed most of the day yesterday. noted temp of 102.2 upon arrival. patient appears very lethargic and answers questions minimally. no reported cough, dysuria, chest pain, sob, nausea vomiting diarrhea. no reported illicit drug use. has had adequate PO intake per son. patient usually more alert and awake and per son, this is not her normal self. no prior hx of stroke. no reported seizure activity per family. takes all medications as prescribed. neuro consulted doubt meningitis if LP negative and still altered, will consider MRI brain full code D/W RN Vitals Vitals Vital Signs Date Time Temp Pulse Resp B/P (MAP) Pulse Ox O2 Delivery O2 Flow Rate FiO2 09/21/19 09:35 60 120/65 09/21/19 09:27 18 90 Nasal Cannula 5.0 09/21/19 07:00 98.4 98.4 Physical Exam Physical Exam GENERAL: confused, lethargic HEENT: Head normocephalic, atraumatic. NECK: Supple LUNGS: Clear to auscultation. HEART: RRR, S1, S2 present, pulses intact ABDOMEN: Soft, positive bowel sounds. EXTREMITIES: No cyanosis or edema. NEUROLOGIC: patient altered, normal pupils. does not follow commands PSYCHIATRIC: Normal affect, normal mood. SKIN: No ulceration. General: Alert, Cooperative, Other (poor recalll) Heart: Regular rate, Normal S1 Abdomen: Normal bowel sounds Extremities: No cyanosis Labs LABS Laboratory Tests Test 09/20/19 11:36 09/20/19 16:54 09/20/19 20:03 09/21/19 04:50 Glucose (Fingerstick) 99 mg/dL (70-99) 100 mg/dL (70-99) 143 mg/dL (70-99) Sodium Level 145 mmol/L (136-145) Potassium Level 3.2 mmol/L (3.5-5.1) Chloride Level 103 mmol/L (98-107) Carbon Dioxide Level 34 mmol/L (21-32) Anion Gap 8 (6-14) Blood Urea Nitrogen 2 mg/dL (7-20) Creatinine 0.8 mg/dL (0.6-1.0) Estimated GFR (Cockcroft-Gault) 87.7 BUN/Creatinine Ratio 3 (6-20) Glucose Level 90 mg/dL (70-99) Calcium Level 8.4 mg/dL (8.5-10.1) Total Bilirubin 0.2 mg/dL (0.2-1.0) Aspartate Amino Transf (AST/SGOT) 45 U/L (15-37) Alanine Aminotransferase (ALT/SGPT) 85 U/L (14-59) Alkaline Phosphatase 65 U/L (46-116) Total Protein 7.2 g/dL (6.4-8.2) Albumin 2.9 g/dL (3.4-5.0) Albumin/Globulin Ratio 0.7 (1.0-1.7) Test 09/21/19 07:46 Glucose (Fingerstick) 86 mg/dL (70-99) Assessment and Plan Assessmemt and Plan Problems Medical Problems: (1) Altered level of consciousness Status: Acute (2) Fever Status: Acute (3) SIRS (systemic inflammatory response syndrome) Status: Acute * Knowledge-safe techniques Patient condition at conclusion of therapy * Pt in chair * Call light in reach * Phone in reach * PtIn no apparent distress * Pt denies further needs Communicated Patient Care With (Name, Title) * JEANETTE Henry Goal 1 - Bed Mobility Assistance Required * Independent Goal 1 Assessment * Appropriate - Continue Goal 2 - Transfers Assistance Required * Independent Goal 2 - Transfer Type * Sit to Stand Goal 2 Assessment * Appropriate - Continue Goal 3 - Ambulation Assistance Required * Independent Goal 3 - Ambulation Distance * 250' Goal 3 - Ambulation Device * No Device Goal 3 Assessment * Appropriate - Continue Goal 4 - Stairs Assistance Required * Independent Goal 4 - Number of Stairs * 2-4 Goal 4 - Device on Stairs * Rail on Right Goal 4 Assessment * Appropriate - Continue Treatment Plan * Therapeutic Exercise * Bed Mobility Training * Transfer training * Gait Training Frequency of Treatment Expected * 7 visits/week Duration of Treatment Expected * 2 weeks Discharge Recommendations * Home with Assistance * Home when goals met Discharge Recommendation - DME * Rolling Walker needed * and ambulation safely Discharge Recommendation Comments * recommend 6 min walk if MD for further O2 use advisement * 4 moves 1-2" from COG Pain Comments * no pain indicated Toilet/Commode Transfers * Independent Toilet/Commode Transfers Comments * commode Socks/Shoes Dressing * Independent * Seated Socks/Shoes Dressing Comments * donning socks Chair Transfer * Independent Functional Mobility * Independent Ambulation Assistive Device * No Device Ambulation Distance * 250 ft, no LOB Functional Mobility Comments * independent retrieving items for floor Object Retrieval * Independent * Standing Functional Limitations ADLs Comments * pt reports no ADL concerns, no further OT indicated Patient Stated Goal * Pt's goal to return home with daughter Learning Preferences * Discussion Patient condition at conclusion of therapy * Pt in chair * Call light in reach * Phone in reach * PtIn no apparent distress * Pt denies further needs Communicated Patient Care With (Name, Title) * Cat, RN, Loida, PT No Further Skilled OT Intrevention Required * Eval only-No OT Needs Discharge Recommendations * Home with Assistance Discharge Recommendation - DME * Rolling Walker needed * and ambulation safely Discharge Recommendation Comments * further assess home O2 needs Comment Review of Relevant I have reviewed the following items rhonda (where applicable) has been applied. Labs Laboratory Tests Test 09/19/19 11:05 09/19/19 16:13 09/19/19 20:53 09/20/19 07:21 Glucose (Fingerstick) 135 mg/dL (70-99) 104 mg/dL (70-99) 127 mg/dL (70-99) 93 mg/dL (70-99) Test 09/20/19 11:36 09/20/19 16:54 09/20/19 20:03 09/21/19 04:50 Glucose (Fingerstick) 99 mg/dL (70-99) 100 mg/dL (70-99) 143 mg/dL (70-99) Sodium Level 145 mmol/L (136-145) Potassium Level 3.2 mmol/L (3.5-5.1) Chloride Level 103 mmol/L (98-107) Carbon Dioxide Level 34 mmol/L (21-32) Anion Gap 8 (6-14) Blood Urea Nitrogen 2 mg/dL (7-20) Creatinine 0.8 mg/dL (0.6-1.0) Estimated GFR (Cockcroft-Gault) 87.7 BUN/Creatinine Ratio 3 (6-20) Glucose Level 90 mg/dL (70-99) Calcium Level 8.4 mg/dL (8.5-10.1) Total Bilirubin 0.2 mg/dL (0.2-1.0) Aspartate Amino Transf (AST/SGOT) 45 U/L (15-37) Alanine Aminotransferase (ALT/SGPT) 85 U/L (14-59) Alkaline Phosphatase 65 U/L (46-116) Total Protein 7.2 g/dL (6.4-8.2) Albumin 2.9 g/dL (3.4-5.0) Albumin/Globulin Ratio 0.7 (1.0-1.7) Test 09/21/19 07:46 Glucose (Fingerstick) 86 mg/dL (70-99) Laboratory Tests Test 09/20/19 11:36 09/20/19 16:54 09/20/19 20:03 09/21/19 04:50 Glucose (Fingerstick) 99 mg/dL (70-99) 100 mg/dL (70-99) 143 mg/dL (70-99) Sodium Level 145 mmol/L (136-145) Potassium Level 3.2 mmol/L (3.5-5.1) Chloride Level 103 mmol/L (98-107) Carbon Dioxide Level 34 mmol/L (21-32) Anion Gap 8 (6-14) Blood Urea Nitrogen 2 mg/dL (7-20) Creatinine 0.8 mg/dL (0.6-1.0) Estimated GFR (Cockcroft-Gault) 87.7 BUN/Creatinine Ratio 3 (6-20) Glucose Level 90 mg/dL (70-99) Calcium Level 8.4 mg/dL (8.5-10.1) Total Bilirubin 0.2 mg/dL (0.2-1.0) Aspartate Amino Transf (AST/SGOT) 45 U/L (15-37) Alanine Aminotransferase (ALT/SGPT) 85 U/L (14-59) Alkaline Phosphatase 65 U/L (46-116) Total Protein 7.2 g/dL (6.4-8.2) Albumin 2.9 g/dL (3.4-5.0) Albumin/Globulin Ratio 0.7 (1.0-1.7) Test 09/21/19 07:46 Glucose (Fingerstick) 86 mg/dL (70-99) Microbiology 09/14/19 Blood Culture - Final, Complete NO GROWTH AFTER 5 DAYS 09/14/19 Urine Culture - Final, Complete 09/14/19 Urine Culture Result 1 (ELIZABETH) - Final, Complete 09/14/19 Antimicrobic Susceptibility - Final, Complete Medications Current Medications Sodium Chloride 1,000 ml @ 1,000 mls/hr Q1H IV Last administered on 09/14/19at 17:05; Start 09/14/19 at 16:34; Stop 09/14/19 at 17:33; Status DC Acetaminophen (Tylenol Supp) 650 mg 1X ONCE PA Last administered on 09/14/19at 17:05; Start 09/14/19 at 16:45; Stop 09/14/19 at 16:53; Status DC Sodium Chloride 1,000 ml @ 2,000 mls/hr Q1H IV ; Start 09/14/19 at 17:30; Stop 09/14/19 at 18:13; Status DC Piperacillin Sod/ Tazobactam Sod 3.375 gm/Sodium Chloride 50 ml @ 100 mls/hr 1X ONCE IV Last administered on 09/14/19at 18:23; Start 09/14/19 at 17:30; Stop 09/14/19 at 17:59; Status DC Iohexol (Omnipaque 350 Mg/ml) 60 ml 1X ONCE IV Last administered on 09/14/19at 17:43; Start 09/14/19 at 17:30; Stop 09/14/19 at 17:31; Status DC Sodium Chloride 1,000 ml @ 1,000 mls/hr 1X ONCE IV Last administered on 09/14/19at 18:24; Start 09/14/19 at 18:15; Stop 09/14/19 at 19:14; Status DC Acetaminophen (Tylenol) 1,000 mg 1X ONCE PO Last administered on 09/14/19at 18:51; Start 09/14/19 at 18:30; Stop 09/14/19 at 18:31; Status DC Ibuprofen (Motrin) 800 mg 1X ONCE PO Last administered on 09/14/19 18:51; Start 09/14/19 at 18:30; Stop 09/14/19 at 18:31; Status DC Ceftriaxone Sodium (Rocephin) 2 gm 1X ONCE IVP Last administered on 09/14/19 19:33; Start 09/14/19 at 19:00; Stop 09/14/19 at 19:03; Status DC Vancomycin HCl 250 ml @ 250 mls/hr 1X ONCE IV ; Start 09/14/19 at 19:00; Stop 09/14/19 at 19:59; Status UNV Vancomycin HCl 1.75 gm/Sodium Chloride 500 ml @ 250 mls/hr 1X ONCE IV Last administered on 09/14/19 19:41; Start 09/14/19 at 19:15; Stop 09/14/19 at 21:14; Status DC Ondansetron HCl (Zofran) 4 mg PRN Q8HRS PRN IV NAUSEA/VOMITING Last administered on 09/14/19 19:49; Start 09/14/19 at 19:30; Stop 09/15/19 at 19:29; Status DC Morphine Sulfate (Morphine Sulfate) 2 mg PRN Q2HR PRN IV PAIN Last administered on 09/15/19 18:47; Start 09/14/19 at 19:30; Stop 09/15/19 at 19:29; Status DC Acetaminophen (Tylenol) 650 mg PRN Q4HRS PRN PO FEVER; Start 09/14/19 at 19:30; Stop 09/15/19 at 19:29; Status DC Sodium Chloride 1,000 ml @ 100 mls/hr Q10H IV Last administered on 09/20/19 00:52; Start 09/14/19 at 23:30; Stop 09/20/19 at 14:50; Status DC Al Hydroxide/Mg Hydroxide (Mylanta Plus Xs) 30 ml PRN DAILY PRN PO HEARTBURN / GAS; Start 09/14/19 at 22:30 Vancomycin HCl (Vanco Per Pharmacy) 1 each PRN DAILY PRN MC SEE COMMENTS Last administered on 09/18/19at 19:52; Start 09/14/19 at 22:45; Stop 09/19/19 at 11:16; Status DC Ceftriaxone Sodium (Rocephin) 2 gm Q24H IVP ; Start 09/14/19 at 23:00; Stop 09/14/19 at 22:43; Status DC Ceftriaxone Sodium (Rocephin) 2 gm Q24H IVP Last administered on 09/20/19at 18:19; Start 09/15/19 at 19:00 Insulin Human Lispro (HumaLOG) 0-5 UNITS TIDWMEALS SQ ; Start 09/15/19 at 08:00 Dextrose (Dextrose 50%-Water Syringe) 12.5 gm PRN Q15MIN PRN IV SEE COMMENTS; Start 09/14/19 at 23:00 Dextrose (Iv Dextrose 5%) 250 ml PRN Q15MIN PRN IV SEE COMMENTS; Start 09/14/19 at 23:00 Vancomycin HCl 1 gm/Sodium Chloride 250 ml @ 250 mls/hr Q24H IV Last administered on 09/15/19at 20:06; Start 09/15/19 at 20:00; Stop 09/16/19 at 20:29; Status DC Vancomycin HCl (Vancomycin Trough Level) 1 each 1X ONCE MC Last administered on 09/16/19at 19:30; Start 09/16/19 at 19:30; Stop 09/16/19 at 19:31; Status DC Aspirin (Ecotrin) 81 mg DAILY PO Last administered on 09/21/19at 09:23; Start 09/15/19 at 12:00 Atorvastatin Calcium (Lipitor) 40 mg QHS PO Last administered on 09/20/19at 23:41; Start 09/16/19 at 21:00 Levetiracetam (Keppra) 500 mg BID PO Last administered on 09/21/19 09:28; Start 09/15/19 at 12:00 Levothyroxine Sodium (Synthroid) 112 mcg DAILY PO Last administered on 09/21/19 09:26; Start 09/15/19 at 12:00 Sertraline HCl (Zoloft) 100 mg DAILY PO Last administered on 09/21/19 09:33; Start 09/15/19 at 12:00 Potassium Chloride (Klor-Con) 40 meq 1X ONCE PO Last administered on 09/15/19at 18:42; Start 09/15/19 at 17:00; Stop 09/15/19 at 17:01; Status DC Ondansetron HCl (Zofran) 4 mg PRN Q6HRS PRN IVP NAUSEA/VOMITING Last administered on 09/20/19at 10:58; Start 09/15/19 at 20:15 Morphine Sulfate (Morphine Sulfate) 2 mg PRN Q2HR PRN IV PAIN Last administered on 09/18/19at 20:36; Start 09/15/19 at 20:15 Oxycodone/ Acetaminophen (Percocet 5/325) 1 tab PRN Q6HRS PRN PO PAIN Last administered on 09/21/19at 09:27; Start 09/16/19 at 05:30 Lactobacillus Rhamnosus (Culturelle) 1 cap BID PO Last administered on 09/21/19at 09:25; Start 09/16/19 at 21:00 Vancomycin HCl 1 gm/Sodium Chloride 250 ml @ 250 mls/hr Q12H IV Last administered on 09/18/19at 10:49; Start 09/16/19 at 21:00; Stop 09/18/19 at 19:50; Status DC Vancomycin HCl (Vancomycin Trough Level) 1 each 1X ONCE MC Last administered on 09/18/19at 08:30; Start 09/18/19 at 08:30; Stop 09/18/19 at 08:31; Status DC Albuterol Sulfate (Ventolin Neb Soln) 2.5 mg RTQID NEB Last administered on 09/20/19at 11:41; Start 09/18/19 at 20:00 Albuterol Sulfate (Ventolin Neb Soln) 2.5 mg 1X ONCE NEB Last administered on 09/18/19at 18:11; Start 09/18/19 at 18:15; Stop 09/18/19 at 18:16; Status DC Vancomycin HCl 1 gm/Sodium Chloride 250 ml @ 250 mls/hr Q8H IV Last administered on 09/19/19at 04:21; Start 09/18/19 at 20:00; Stop 09/19/19 at 11:16; Status DC Atenolol (Tenormin) 50 mg HS PO Last administered on 09/20/19at 23:40; Start 09/20/19 at 21:00 Isosorbide Mononitrate (Imdur) 30 mg DAILY PO Last administered on 09/21/19 09:34; Start 09/20/19 at 11:00 Metformin HCl (Glucophage Xr) 500 mg BIDWMEALS PO Last administered on 09/21/19 09:23; Start 09/20/19 at 17:00 Fish Oil (Fish Oil) 1,000 mg DAILY PO Last administered on 09/21/19 09:27; Start 09/20/19 at 11:00 Cyclobenzaprine HCl (Flexeril) 10 mg TID PO Last administered on 09/21/19 09:23; Start 09/20/19 at 14:00 Diphenhydramine HCl (Benadryl) 25 mg PRN Q6HRS PRN PO ITCHING; Start 09/20/19 at 11:00 Gabapentin (Neurontin) 600 mg TID PO Last administered on 09/21/19 09:36; Start 09/20/19 at 14:00 Cetirizine HCl (ZyrTEC) 10 mg DAILY PO Last administered on 09/21/19 09:25; Start 09/20/19 at 11:00 Losartan Potassium (Cozaar) 50 mg DAILY PO Last administered on 09/21/19 09:35; Start 09/20/19 at 11:30 Multivitamins (Thera M Plus) 1 tab DAILY PO Last administered on 09/21/19 09:38; Start 09/20/19 at 11:00 Ketotifen Fumarate (Zaditor) 1 drop BID OU Last administered on 09/21/19 09:55; Start 09/20/19 at 21:00 Famotidine (Pepcid) 20 mg QHS PO Last administered on 09/20/19 23:41; Start 09/20/19 at 21:00 Acetaminophen/ Aspirin/Caffeine (Excedrin Migraine) 1 tab PRN Q6HRS PRN PO MIGRAINE HEADACHE Last administered on 09/20/19 10:58; Start 09/20/19 at 10:45 Hydrochlorothiazide (Microzide) 12.5 mg DAILY PO Last administered on 09/21/19 09:23; Start 09/20/19 at 11:30 Albuterol/ Ipratropium (Duoneb) 3 ml RTQID NEB Last administered on 09/20/19 20:30; Start 09/20/19 at 16:00 Furosemide (Lasix) 20 mg 1X ONCE IVP Last administered on 09/20/19at 18:18; Start 09/20/19 at 17:30; Stop 09/20/19 at 17:34; Status DC Potassium Chloride (Klor-Con) 20 meq DAILYWBKFT PO Last administered on 09/21/19at 09:25; Start 09/21/19 at 08:00 Potassium Chloride (Klor-Con) 40 meq 1X ONCE PO Last administered on 09/20/19at 18:18; Start 09/20/19 at 17:30; Stop 09/20/19 at 17:34; Status DC Active Scripts Active Reported Aspirin Ec (Aspirin) 81 Mg Tablet.dr 1 Tab PO DAILY Levothyroxine Sodium 112 Mcg Tablet 1 Tab PO DAILY Multi Vitamin Daily (Multivitamin) 1 Each Tablet 1 Tab PO DAILY 30 Days Fish Oil 1,000 Mg Softgel ([place]-3 Fatty Acids/Fish Oil) 1 Each Capsule 1 Cap PO DAILY 30 Days Ranitidine Hcl 300 Mg Tablet 1 Tab PO QHS [place] (Olopatadine HCl) 2.5 Ml Drops 2.5 Ml OP DAILY Losartan-Hctz 50-12.5 Mg Tab (Losartan/Hydrochlorothiazide) 1 Each Tablet 1 Tab PO DAILY Levetiracetam 500 Mg Tablet 1 Tab PO BID Metformin Hcl Er (Metformin Hcl) 500 Mg Tab.er.24h 500 Mg PO BIDWMEALS Atenolol 50 Mg Tablet 1 Tab PO HS Diphenhydramine Hcl 25 Mg Tablet 25 Mg PO PRN PRN Loratadine 10 Mg Tab.rapdis 1 Tab PO DAILY 30 Days Baclofen 10 Mg Tablet 1 Tab PO BID Isosorbide Mononitrate Er (Isosorbide Mononitrate) 30 Mg Tab.er.24h 1 Tab PO DAILY Zoloft (Sertraline Hcl) 100 Mg Tablet 1 Tab PO DAILY Atorvastatin Calcium 40 Mg Tablet 1 Tab PO DAILY Gabapentin 600 Mg Tablet 600 Mg PO TID Vitals/I & O Vital Sign - Last 24 Hours 09/20/19 09/20/19 09/20/19 09/20/19 10:59 10:59 11:21 11:43 Temp 98.0 98.0 Pulse 98 67 Resp 18 22 B/P (MAP) 159/90 140/90 (107) Pulse Ox 90 92 O2 Delivery Nasal Cannula Nasal Cannula Nasal Cannula O2 Flow Rate 5.0 5.0 09/20/19 09/20/19 09/20/19 09/20/19 15:00 15:02 15:50 19:00 Temp 98.0 97.4 98.0 97.4 Pulse 64 64 81 Resp 16 16 B/P (MAP) 125/72 (89) 125/74 132/77 (95) Pulse Ox 94 92 90 O2 Delivery Nasal Cannula Nasal Cannula Nasal Cannula O2 Flow Rate 5.0 5.0 2.0 09/20/19 09/20/19 09/20/19 09/20/19 20:00 20:31 23:00 23:40 Temp 98.3 98.3 Pulse 86 81 Resp 18 B/P (MAP) 135/85 (102) 132/77 Pulse Ox 97 90 O2 Delivery Nasal Cannula Nasal Cannula Nasal Cannula O2 Flow Rate 5.0 3.0 2.0 09/20/19 09/21/19 09/21/19 09/21/19 23:45 00:45 03:00 07:00 Temp 98.3 98.4 98.3 98.4 Pulse 60 60 Resp 20 20 18 18 B/P (MAP) 123/72 (89) 120/65 (83) Pulse Ox 97 92 94 93 O2 Delivery Nasal Cannula Nasal Cannula Nasal Cannula Nasal Cannula O2 Flow Rate 3.0 4.0 2.0 5.0 09/21/19 09/21/19 09/21/19 09/21/19 07:57 09:27 09:34 09:35 Pulse 60 60 Resp 18 B/P (MAP) 120/65 120/65 Pulse Ox 90 90 O2 Delivery Nasal Cannula Nasal Cannula O2 Flow Rate 5.0 5.0 LISA SINHA MD Sep 21, 2019 10:49
--- NOTE | 2019-09-21 10:58 | PDOC ---
PROGRESS NOTES Assessment Problems Medical Problems: (1) Altered level of consciousness Status: Acute (2) Fever Status: Acute (3) SIRS (systemic inflammatory response syndrome) Status: Acute Systemic inflammatory response syndrome related to urinary tract infection, doubt she has meningitis or encephalitis given rapid improvement. E. coli grew out History brain tumor resection, remote seizure history. Discharge on hold due to hypoxia, says that she has been short of breath for quite some time Plan Physical therapy Pulmonary workup Okay for discharge neuro-ortiz Subjective no complaints Objective Vital Signs Date Time Temp Pulse Resp B/P (MAP) Pulse Ox O2 Delivery O2 Flow Rate FiO2 09/21/19 09:35 60 120/65 09/21/19 09:27 18 90 Nasal Cannula 5.0 09/21/19 07:00 98.4 98.4 Intake and Output 09/21/19 07:00 # Voids 3 # Bowel Movements 1 PHYSICAL EXAM Alert. Oriented to time, place and person. PERRL. EOMI. CN: no focal findings. Muscle tone: normal. Muscle strength: 4/5 DTR: 2+ Plantar reflex: flexor Gait: A little unsteady. Sensory exam: no abnormal findings. No cerebellar signs elicited. Review of Relevant I have reviewed the following items rhonda (where applicable) has been applied. Labs Laboratory Tests Test 09/19/19 11:05 09/19/19 16:13 09/19/19 20:53 09/20/19 07:21 Glucose (Fingerstick) 135 mg/dL (70-99) 104 mg/dL (70-99) 127 mg/dL (70-99) 93 mg/dL (70-99) Test 09/20/19 11:36 09/20/19 16:54 09/20/19 20:03 09/21/19 04:50 Glucose (Fingerstick) 99 mg/dL (70-99) 100 mg/dL (70-99) 143 mg/dL (70-99) Sodium Level 145 mmol/L (136-145) Potassium Level 3.2 mmol/L (3.5-5.1) Chloride Level 103 mmol/L (98-107) Carbon Dioxide Level 34 mmol/L (21-32) Anion Gap 8 (6-14) Blood Urea Nitrogen 2 mg/dL (7-20) Creatinine 0.8 mg/dL (0.6-1.0) Estimated GFR (Cockcroft-Gault) 87.7 BUN/Creatinine Ratio 3 (6-20) Glucose Level 90 mg/dL (70-99) Calcium Level 8.4 mg/dL (8.5-10.1) Total Bilirubin 0.2 mg/dL (0.2-1.0) Aspartate Amino Transf (AST/SGOT) 45 U/L (15-37) Alanine Aminotransferase (ALT/SGPT) 85 U/L (14-59) Alkaline Phosphatase 65 U/L (46-116) Total Protein 7.2 g/dL (6.4-8.2) Albumin 2.9 g/dL (3.4-5.0) Albumin/Globulin Ratio 0.7 (1.0-1.7) Test 09/21/19 07:46 Glucose (Fingerstick) 86 mg/dL (70-99) Laboratory Tests Test 09/20/19 11:36 09/20/19 16:54 09/20/19 20:03 09/21/19 04:50 Glucose (Fingerstick) 99 mg/dL (70-99) 100 mg/dL (70-99) 143 mg/dL (70-99) Sodium Level 145 mmol/L (136-145) Potassium Level 3.2 mmol/L (3.5-5.1) Chloride Level 103 mmol/L (98-107) Carbon Dioxide Level 34 mmol/L (21-32) Anion Gap 8 (6-14) Blood Urea Nitrogen 2 mg/dL (7-20) Creatinine 0.8 mg/dL (0.6-1.0) Estimated GFR (Cockcroft-Gault) 87.7 BUN/Creatinine Ratio 3 (6-20) Glucose Level 90 mg/dL (70-99) Calcium Level 8.4 mg/dL (8.5-10.1) Total Bilirubin 0.2 mg/dL (0.2-1.0) Aspartate Amino Transf (AST/SGOT) 45 U/L (15-37) Alanine Aminotransferase (ALT/SGPT) 85 U/L (14-59) Alkaline Phosphatase 65 U/L (46-116) Total Protein 7.2 g/dL (6.4-8.2) Albumin 2.9 g/dL (3.4-5.0) Albumin/Globulin Ratio 0.7 (1.0-1.7) Test 09/21/19 07:46 Glucose (Fingerstick) 86 mg/dL (70-99) Microbiology 09/14/19 Blood Culture - Final, Complete NO GROWTH AFTER 5 DAYS 09/14/19 Urine Culture - Final, Complete 09/14/19 Urine Culture Result 1 (ELIZABETH) - Final, Complete 09/14/19 Antimicrobic Susceptibility - Final, Complete Medications Current Medications Sodium Chloride 1,000 ml @ 1,000 mls/hr Q1H IV Last administered on 09/14/19at 17:05; Start 09/14/19 at 16:34; Stop 09/14/19 at 17:33; Status DC Acetaminophen (Tylenol Supp) 650 mg 1X ONCE OR Last administered on 09/14/19at 17:05; Start 09/14/19 at 16:45; Stop 09/14/19 at 16:53; Status DC Sodium Chloride 1,000 ml @ 2,000 mls/hr Q1H IV ; Start 09/14/19 at 17:30; Stop 09/14/19 at 18:13; Status DC Piperacillin Sod/ Tazobactam Sod 3.375 gm/Sodium Chloride 50 ml @ 100 mls/hr 1X ONCE IV Last administered on 09/14/19at 18:23; Start 09/14/19 at 17:30; Stop 09/14/19 at 17:59; Status DC Iohexol (Omnipaque 350 Mg/ml) 60 ml 1X ONCE IV Last administered on 09/14/19at 17:43; Start 09/14/19 at 17:30; Stop 09/14/19 at 17:31; Status DC Sodium Chloride 1,000 ml @ 1,000 mls/hr 1X ONCE IV Last administered on 09/14/19at 18:24; Start 09/14/19 at 18:15; Stop 09/14/19 at 19:14; Status DC Acetaminophen (Tylenol) 1,000 mg 1X ONCE PO Last administered on 09/14/19at 18:51; Start 09/14/19 at 18:30; Stop 09/14/19 at 18:31; Status DC Ibuprofen (Motrin) 800 mg 1X ONCE PO Last administered on 09/14/19at 18:51; Start 09/14/19 at 18:30; Stop 09/14/19 at 18:31; Status DC Ceftriaxone Sodium (Rocephin) 2 gm 1X ONCE IVP Last administered on 09/14/19at 19:33; Start 09/14/19 at 19:00; Stop 09/14/19 at 19:03; Status DC Vancomycin HCl 250 ml @ 250 mls/hr 1X ONCE IV ; Start 09/14/19 at 19:00; Stop 09/14/19 at 19:59; Status UNV Vancomycin HCl 1.75 gm/Sodium Chloride 500 ml @ 250 mls/hr 1X ONCE IV Last administered on 09/14/19at 19:41; Start 09/14/19 at 19:15; Stop 09/14/19 at 21:14; Status DC Ondansetron HCl (Zofran) 4 mg PRN Q8HRS PRN IV NAUSEA/VOMITING Last administered on 09/14/19at 19:49; Start 09/14/19 at 19:30; Stop 09/15/19 at 19:29; Status DC Morphine Sulfate (Morphine Sulfate) 2 mg PRN Q2HR PRN IV PAIN Last administered on 09/15/19at 18:47; Start 09/14/19 at 19:30; Stop 09/15/19 at 19:29; Status DC Acetaminophen (Tylenol) 650 mg PRN Q4HRS PRN PO FEVER; Start 09/14/19 at 19:30; Stop 09/15/19 at 19:29; Status DC Sodium Chloride 1,000 ml @ 100 mls/hr Q10H IV Last administered on 09/20/19at 00:52; Start 09/14/19 at 23:30; Stop 09/20/19 at 14:50; Status DC Al Hydroxide/Mg Hydroxide (Mylanta Plus Xs) 30 ml PRN DAILY PRN PO HEARTBURN / GAS; Start 09/14/19 at 22:30 Vancomycin HCl (Vanco Per Pharmacy) 1 each PRN DAILY PRN MC SEE COMMENTS Last administered on 09/18/19at 19:52; Start 09/14/19 at 22:45; Stop 09/19/19 at 11:16; Status DC Ceftriaxone Sodium (Rocephin) 2 gm Q24H IVP ; Start 09/14/19 at 23:00; Stop 09/14/19 at 22:43; Status DC Ceftriaxone Sodium (Rocephin) 2 gm Q24H IVP Last administered on 09/20/19 18:19; Start 09/15/19 at 19:00 Insulin Human Lispro (HumaLOG) 0-5 UNITS TIDWMEALS SQ ; Start 09/15/19 at 08:00 Dextrose (Dextrose 50%-Water Syringe) 12.5 gm PRN Q15MIN PRN IV SEE COMMENTS; Start 09/14/19 at 23:00 Dextrose (Iv Dextrose 5%) 250 ml PRN Q15MIN PRN IV SEE COMMENTS; Start 09/14/19 at 23:00 Vancomycin HCl 1 gm/Sodium Chloride 250 ml @ 250 mls/hr Q24H IV Last administered on 09/15/19at 20:06; Start 09/15/19 at 20:00; Stop 09/16/19 at 20:29; Status DC Vancomycin HCl (Vancomycin Trough Level) 1 each 1X ONCE MC Last administered on 09/16/19 19:30; Start 09/16/19 at 19:30; Stop 09/16/19 at 19:31; Status DC Aspirin (Ecotrin) 81 mg DAILY PO Last administered on 09/21/19at 09:23; Start 09/15/19 at 12:00 Atorvastatin Calcium (Lipitor) 40 mg QHS PO Last administered on 09/20/19 23:41; Start 09/16/19 at 21:00 Levetiracetam (Keppra) 500 mg BID PO Last administered on 09/21/19 09:28; Start 09/15/19 at 12:00 Levothyroxine Sodium (Synthroid) 112 mcg DAILY PO Last administered on 09/21/19 09:26; Start 09/15/19 at 12:00 Sertraline HCl (Zoloft) 100 mg DAILY PO Last administered on 09/21/19 09:33; Start 09/15/19 at 12:00 Potassium Chloride (Klor-Con) 40 meq 1X ONCE PO Last administered on 09/15/19 18:42; Start 09/15/19 at 17:00; Stop 09/15/19 at 17:01; Status DC Ondansetron HCl (Zofran) 4 mg PRN Q6HRS PRN IVP NAUSEA/VOMITING Last administered on 09/20/19at 10:58; Start 09/15/19 at 20:15 Morphine Sulfate (Morphine Sulfate) 2 mg PRN Q2HR PRN IV PAIN Last administered on 09/18/19at 20:36; Start 09/15/19 at 20:15 Oxycodone/ Acetaminophen (Percocet 5/325) 1 tab PRN Q6HRS PRN PO PAIN Last administered on 09/21/19 09:27; Start 09/16/19 at 05:30 Lactobacillus Rhamnosus (Culturelle) 1 cap BID PO Last administered on 09/21/19 09:25; Start 09/16/19 at 21:00 Vancomycin HCl 1 gm/Sodium Chloride 250 ml @ 250 mls/hr Q12H IV Last administered on 09/18/19 10:49; Start 09/16/19 at 21:00; Stop 09/18/19 at 19:50; Status DC Vancomycin HCl (Vancomycin Trough Level) 1 each 1X ONCE MC Last administered on 09/18/19 08:30; Start 09/18/19 at 08:30; Stop 09/18/19 at 08:31; Status DC Albuterol Sulfate (Ventolin Neb Soln) 2.5 mg RTQID NEB Last administered on 09/20/19at 11:41; Start 09/18/19 at 20:00 Albuterol Sulfate (Ventolin Neb Soln) 2.5 mg 1X ONCE NEB Last administered on 09/18/19at 18:11; Start 09/18/19 at 18:15; Stop 09/18/19 at 18:16; Status DC Vancomycin HCl 1 gm/Sodium Chloride 250 ml @ 250 mls/hr Q8H IV Last administered on 09/19/19at 04:21; Start 09/18/19 at 20:00; Stop 09/19/19 at 11:16; Status DC Atenolol (Tenormin) 50 mg HS PO Last administered on 09/20/19 23:40; Start 09/20/19 at 21:00 Isosorbide Mononitrate (Imdur) 30 mg DAILY PO Last administered on 09/21/19 09:34; Start 09/20/19 at 11:00 Metformin HCl (Glucophage Xr) 500 mg BIDWMEALS PO Last administered on 09/21/19 09:23; Start 09/20/19 at 17:00 Fish Oil (Fish Oil) 1,000 mg DAILY PO Last administered on 09/21/19 09:27; Start 09/20/19 at 11:00 Cyclobenzaprine HCl (Flexeril) 10 mg TID PO Last administered on 09/21/19 09:23; Start 09/20/19 at 14:00 Diphenhydramine HCl (Benadryl) 25 mg PRN Q6HRS PRN PO ITCHING; Start 09/20/19 at 11:00 Gabapentin (Neurontin) 600 mg TID PO Last administered on 09/21/19 09:36; Start 09/20/19 at 14:00 Cetirizine HCl (ZyrTEC) 10 mg DAILY PO Last administered on 09/21/19 09:25; Start 09/20/19 at 11:00 Losartan Potassium (Cozaar) 50 mg DAILY PO Last administered on 09/21/19 09:35; Start 09/20/19 at 11:30 Multivitamins (Thera M Plus) 1 tab DAILY PO Last administered on 09/21/19 09:38; Start 09/20/19 at 11:00 Ketotifen Fumarate (Zaditor) 1 drop BID OU Last administered on 09/21/19 09:55; Start 09/20/19 at 21:00 Famotidine (Pepcid) 20 mg QHS PO Last administered on 09/20/19 23:41; Start 09/20/19 at 21:00 Acetaminophen/ Aspirin/Caffeine (Excedrin Migraine) 1 tab PRN Q6HRS PRN PO MIGRAINE HEADACHE Last administered on 09/20/19 10:58; Start 09/20/19 at 10:45 Hydrochlorothiazide (Microzide) 12.5 mg DAILY PO Last administered on 09/21/19 09:23; Start 09/20/19 at 11:30 Albuterol/ Ipratropium (Duoneb) 3 ml RTQID NEB Last administered on 09/20/19 20:30; Start 09/20/19 at 16:00 Furosemide (Lasix) 20 mg 1X ONCE IVP Last administered on 09/20/19 18:18; Start 09/20/19 at 17:30; Stop 09/20/19 at 17:34; Status DC Potassium Chloride (Klor-Con) 20 meq DAILYWBKFT PO Last administered on 09/21/19at 09:25; Start 09/21/19 at 08:00 Potassium Chloride (Klor-Con) 40 meq 1X ONCE PO Last administered on 09/20/19at 18:18; Start 09/20/19 at 17:30; Stop 09/20/19 at 17:34; Status DC Active Scripts Active Reported Aspirin Ec (Aspirin) 81 Mg Tablet.dr 1 Tab PO DAILY Levothyroxine Sodium 112 Mcg Tablet 1 Tab PO DAILY Multi Vitamin Daily (Multivitamin) 1 Each Tablet 1 Tab PO DAILY 30 Days Fish Oil 1,000 Mg Softgel ([place]-3 Fatty Acids/Fish Oil) 1 Each Capsule 1 Cap PO DAILY 30 Days Ranitidine Hcl 300 Mg Tablet 1 Tab PO QHS [place] (Olopatadine HCl) 2.5 Ml Drops 2.5 Ml OP DAILY Losartan-Hctz 50-12.5 Mg Tab (Losartan/Hydrochlorothiazide) 1 Each Tablet 1 Tab PO DAILY Levetiracetam 500 Mg Tablet 1 Tab PO BID Metformin Hcl Er (Metformin Hcl) 500 Mg Tab.er.24h 500 Mg PO BIDWMEALS Atenolol 50 Mg Tablet 1 Tab PO HS Diphenhydramine Hcl 25 Mg Tablet 25 Mg PO PRN PRN Loratadine 10 Mg Tab.rapdis 1 Tab PO DAILY 30 Days Baclofen 10 Mg Tablet 1 Tab PO BID Isosorbide Mononitrate Er (Isosorbide Mononitrate) 30 Mg Tab.er.24h 1 Tab PO DAILY Zoloft (Sertraline Hcl) 100 Mg Tablet 1 Tab PO DAILY Atorvastatin Calcium 40 Mg Tablet 1 Tab PO DAILY Gabapentin 600 Mg Tablet 600 Mg PO TID Vitals/I & O Vital Sign - Last 24 Hours 09/20/19 09/20/19 09/20/19 09/20/19 10:59 10:59 11:21 11:43 Temp 98.0 98.0 Pulse 98 67 Resp 18 22 B/P (MAP) 159/90 140/90 (107) Pulse Ox 90 92 O2 Delivery Nasal Cannula Nasal Cannula Nasal Cannula O2 Flow Rate 5.0 5.0 09/20/19 09/20/19 09/20/19 09/20/19 15:00 15:02 15:50 19:00 Temp 98.0 97.4 98.0 97.4 Pulse 64 64 81 Resp 16 16 B/P (MAP) 125/72 (89) 125/74 132/77 (95) Pulse Ox 94 92 90 O2 Delivery Nasal Cannula Nasal Cannula Nasal Cannula O2 Flow Rate 5.0 5.0 2.0 09/20/19 09/20/19 09/20/19 09/20/19 20:00 20:31 23:00 23:40 Temp 98.3 98.3 Pulse 86 81 Resp 18 B/P (MAP) 135/85 (102) 132/77 Pulse Ox 97 90 O2 Delivery Nasal Cannula Nasal Cannula Nasal Cannula O2 Flow Rate 5.0 3.0 2.0 09/20/19 09/21/19 09/21/19 09/21/19 23:45 00:45 03:00 07:00 Temp 98.3 98.4 98.3 98.4 Pulse 60 60 Resp 20 20 18 18 B/P (MAP) 123/72 (89) 120/65 (83) Pulse Ox 97 92 94 93 O2 Delivery Nasal Cannula Nasal Cannula Nasal Cannula Nasal Cannula O2 Flow Rate 3.0 4.0 2.0 5.0 09/21/19 09/21/19 09/21/19 09/21/19 07:57 09:27 09:34 09:35 Pulse 60 60 Resp 18 B/P (MAP) 120/65 120/65 Pulse Ox 90 90 O2 Delivery Nasal Cannula Nasal Cannula O2 Flow Rate 5.0 5.0 LAY BUSCH MD Sep 21, 2019 10:58
[2019-09-21 11:00] VITALS: BP 98/62
[2019-09-21] MEDS: IPRATRPIUM/ALBUTEROL 0.5/2.5MG 3 ML NEBU. NEB SCH ×3 (12:00→19:57)
--- NOTE | 2019-09-21 13:19 | NUR ---
SW following. Discussed with RN. CAMPBELL met with pt to discuss discharge planning. Pt plans on returning to [place] when she has figured out what is wrong with her. Pt agreeable to [facility] for oxygen if she needs it at discharge, as they have an office in [facility], where pt lives. CAMPBELL confirmed with [facility]. Awaiting 6 minute walk to determine oxygen needs. CAMPBELL will continue to follow. RN notified.
--- NOTE | 2019-09-21 14:57 | RAD ---
PORTABLE CHEST 1V Clinical indications: CHF. COMPARISON: September 20, 2019. Findings: Bilateral pleural effusions are seen which are smaller. Bibasilar infiltrates or compressive atelectasis is seen which has improved as well. No pneumothorax is seen. The heart size and mediastinum and pulmonary vasculature are stable. IMPRESSION: Improving CHF. Electronically signed by: Gurinder Payton MD (09/21/2019 2:55 PM) [facility]
[2019-09-21 15:00] VITALS: BP 108/53
[2019-09-21] MEDS ORDERED: POTASSIUM CHLORIDE 20 MEQ TABLET.ER. PO ONE (18:00)
[2019-09-21 19:00] VITALS: BP 119/71
[2019-09-21] MEDS: cefTRIAXone IV Push 2 GM VIAL. IVP SCH (19:16)
[2019-09-21] MEDS: ATENOLOL 50 MG TABLET. PO SCH (21:00)
[2019-09-21] MEDS: ATORVASTATIN CALCIUM 40 MG TABLET. PO SCH (22:25)
[2019-09-21] MEDS: FAMOTIDINE 20 MG TABLET. PO SCH (22:25)
[2019-09-21 23:00] VITALS: BP 123/67
[2019-09-22 03:00] VITALS: BP 123/78
[2019-09-22 07:00] VITALS: BP 139/83
[2019-09-22] MEDS ORDERED: POTASSIUM CHLORIDE 20 MEQ TABLET.ER. PO SCH (08:00)
[2019-09-22] MEDS: INSULIN LISPRO 300 UNITS/3 ML VIAL. SQ SCH ×2 (08:00→12:00)
[2019-09-22] MEDS: IPRATRPIUM/ALBUTEROL 0.5/2.5MG 3 ML NEBU. NEB SCH ×3 (08:12→15:41)
[2019-09-22] MEDS: CETIRIZINE HCL 10 MG TABLET. PO SCH (08:40)
[2019-09-22] MEDS: GABAPENTIN 300 MG CAPSULE. PO SCH ×2 (08:40→14:33)
[2019-09-22] MEDS: LACTOBACILLUS RHAMNOSUS GG 1 CAPSULE. PO SCH (08:40)
[2019-09-22] MEDS: CYCLOBENZAPRINE 10 MG TABLET. PO SCH ×2 (08:40→14:33)
[2019-09-22] MEDS: ISOSORBIDE MONONITRATE ER 30 MG TAB.ER.24H PO SCH (08:40)
[2019-09-22] MEDS: ASPIRIN ENTERIC COATED 81 MG TABLET.DR. PO SCH (08:40)
[2019-09-22] MEDS: metFORMIN XR 500 MG TAB.ER.24H PO SCH ×2 (08:41→16:54)
[2019-09-22] MEDS: MULTIVITAMIN with MINERAL TABLET. PO SCH (08:41)
[2019-09-22] MEDS: hydroCHLOROthiazide 12.5 MG CAPSULE PO SCH (08:41)
[2019-09-22] MEDS: OMEGA-3 FATTY ACIDS/FISH OIL 1,000 MG CAPSULE. PO SCH (08:41)
[2019-09-22] MEDS: LOSARTAN POTASSIUM 50 MG TABLET. PO SCH (08:41)
[2019-09-22] MEDS: levETIRAcetam 500 MG TABLET PO SCH (08:41)
[2019-09-22] MEDS: SERTRALINE 50 MG TABLET. PO SCH (08:41)
[2019-09-22] MEDS: LEVOTHYROXINE 112 MCG TABLET PO SCH (08:41)
[2019-09-22] MEDS: KETOTIFEN FUMARATE 0.025% OPHTH SOLUTION BOTTLE. OU SCH (08:42)
[2019-09-22] MEDS: oxyCODONE/APAP 5/325 1 TAB TABLET PO PRN (08:50)
--- NOTE | 2019-09-22 09:54 | PDOC ---
PROGRESS NOTES Assessment Problems Medical Problems: (1) Altered level of consciousness Status: Acute (2) Fever Status: Acute (3) SIRS (systemic inflammatory response syndrome) Status: Acute Systemic inflammatory response syndrome related to urinary tract infection, doubt she has meningitis or encephalitis given rapid improvement. E. coli grew out History brain tumor resection, remote seizure history. Discharge on hold due to hypoxia, says that she has been short of breath for quite some time, Pulmonary on the case Plan Physical therapy Pulmonary workup Okay for discharge neuro-ortiz Subjective No complaints Objective Vital Signs Date Time Temp Pulse Resp B/P (MAP) Pulse Ox O2 Delivery O2 Flow Rate FiO2 09/22/19 08:50 20 93 Room Air 09/22/19 08:41 63 139/83 09/22/19 08:13 5.0 09/22/19 07:00 98.8 98.8 Intake and Output 09/22/19 07:00 Intake Total 180 ml Balance 180 ml Intake Oral 180 ml # Voids 9 PHYSICAL EXAM Alert. Oriented to time, place and person. PERRL. EOMI. CN: no focal findings. Muscle tone: normal. Muscle strength: 4/5 DTR: 2+ Plantar reflex: flexor Gait: A little unsteady. Sensory exam: no abnormal findings. No cerebellar signs elicited. Review of Relevant I have reviewed the following items rhonda (where applicable) has been applied. Labs Laboratory Tests Test 09/20/19 11:36 09/20/19 16:54 09/20/19 20:03 09/21/19 04:50 Glucose (Fingerstick) 99 mg/dL (70-99) 100 mg/dL (70-99) 143 mg/dL (70-99) Sodium Level 145 mmol/L (136-145) Potassium Level 3.2 mmol/L (3.5-5.1) Chloride Level 103 mmol/L (98-107) Carbon Dioxide Level 34 mmol/L (21-32) Anion Gap 8 (6-14) Blood Urea Nitrogen 2 mg/dL (7-20) Creatinine 0.8 mg/dL (0.6-1.0) Estimated GFR (Cockcroft-Gault) 87.7 BUN/Creatinine Ratio 3 (6-20) Glucose Level 90 mg/dL (70-99) Calcium Level 8.4 mg/dL (8.5-10.1) Total Bilirubin 0.2 mg/dL (0.2-1.0) Aspartate Amino Transf (AST/SGOT) 45 U/L (15-37) Alanine Aminotransferase (ALT/SGPT) 85 U/L (14-59) Alkaline Phosphatase 65 U/L (46-116) Total Protein 7.2 g/dL (6.4-8.2) Albumin 2.9 g/dL (3.4-5.0) Albumin/Globulin Ratio 0.7 (1.0-1.7) Test 09/21/19 07:46 09/21/19 11:14 09/21/19 16:59 09/21/19 21:26 Glucose (Fingerstick) 86 mg/dL (70-99) 162 mg/dL (70-99) 98 mg/dL (70-99) 138 mg/dL (70-99) Test 09/22/19 07:27 Glucose (Fingerstick) 95 mg/dL (70-99) Laboratory Tests Test 09/21/19 11:14 09/21/19 16:59 09/21/19 21:26 09/22/19 07:27 Glucose (Fingerstick) 162 mg/dL (70-99) 98 mg/dL (70-99) 138 mg/dL (70-99) 95 mg/dL (70-99) Microbiology 09/14/19 Blood Culture - Final, Complete NO GROWTH AFTER 5 DAYS 09/14/19 Urine Culture - Final, Complete 09/14/19 Urine Culture Result 1 (ELIZABETH) - Final, Complete 09/14/19 Antimicrobic Susceptibility - Final, Complete Medications Current Medications Sodium Chloride 1,000 ml @ 1,000 mls/hr Q1H IV Last administered on 09/14/19at 17:05; Start 09/14/19 at 16:34; Stop 09/14/19 at 17:33; Status DC Acetaminophen (Tylenol Supp) 650 mg 1X ONCE [place] Last administered on 09/14/19at 17:05; Start 09/14/19 at 16:45; Stop 09/14/19 at 16:53; Status DC Sodium Chloride 1,000 ml @ 2,000 mls/hr Q1H IV ; Start 09/14/19 at 17:30; Stop 09/14/19 at 18:13; Status DC Piperacillin Sod/ Tazobactam Sod 3.375 gm/Sodium Chloride 50 ml @ 100 mls/hr 1X ONCE IV Last administered on 09/14/19 18:23; Start 09/14/19 at 17:30; Stop 09/14/19 at 17:59; Status DC Iohexol (Omnipaque 350 Mg/ml) 60 ml 1X ONCE IV Last administered on 09/14/19 17:43; Start 09/14/19 at 17:30; Stop 09/14/19 at 17:31; Status DC Sodium Chloride 1,000 ml @ 1,000 mls/hr 1X ONCE IV Last administered on 09/14/19 18:24; Start 09/14/19 at 18:15; Stop 09/14/19 at 19:14; Status DC Acetaminophen (Tylenol) 1,000 mg 1X ONCE PO Last administered on 09/14/19 18:51; Start 09/14/19 at 18:30; Stop 09/14/19 at 18:31; Status DC Ibuprofen (Motrin) 800 mg 1X ONCE PO Last administered on 09/14/19at 18:51; Start 09/14/19 at 18:30; Stop 09/14/19 at 18:31; Status DC Ceftriaxone Sodium (Rocephin) 2 gm 1X ONCE IVP Last administered on 09/14/19 19:33; Start 09/14/19 at 19:00; Stop 09/14/19 at 19:03; Status DC Vancomycin HCl 250 ml @ 250 mls/hr 1X ONCE IV ; Start 09/14/19 at 19:00; Stop 09/14/19 at 19:59; Status UNV Vancomycin HCl 1.75 gm/Sodium Chloride 500 ml @ 250 mls/hr 1X ONCE IV Last administered on 09/14/19at 19:41; Start 09/14/19 at 19:15; Stop 09/14/19 at 21:14; Status DC Ondansetron HCl (Zofran) 4 mg PRN Q8HRS PRN IV NAUSEA/VOMITING Last administered on 09/14/19 19:49; Start 09/14/19 at 19:30; Stop 09/15/19 at 19:29; Status DC Morphine Sulfate (Morphine Sulfate) 2 mg PRN Q2HR PRN IV PAIN Last administered on 09/15/19at 18:47; Start 09/14/19 at 19:30; Stop 09/15/19 at 19:29; Status DC Acetaminophen (Tylenol) 650 mg PRN Q4HRS PRN PO FEVER; Start 09/14/19 at 19:30; Stop 09/15/19 at 19:29; Status DC Sodium Chloride 1,000 ml @ 100 mls/hr Q10H IV Last administered on 09/20/19at 00:52; Start 09/14/19 at 23:30; Stop 09/20/19 at 14:50; Status DC Al Hydroxide/Mg Hydroxide (Mylanta Plus Xs) 30 ml PRN DAILY PRN PO HEARTBURN / GAS; Start 09/14/19 at 22:30 Vancomycin HCl (Vanco Per Pharmacy) 1 each PRN DAILY PRN MC SEE COMMENTS Last administered on 09/18/19at 19:52; Start 09/14/19 at 22:45; Stop 09/19/19 at 11:16; Status DC Ceftriaxone Sodium (Rocephin) 2 gm Q24H IVP ; Start 09/14/19 at 23:00; Stop 09/14/19 at 22:43; Status DC Ceftriaxone Sodium (Rocephin) 2 gm Q24H IVP Last administered on 09/21/19at 19:16; Start 09/15/19 at 19:00 Insulin Human Lispro (HumaLOG) 0-5 UNITS TIDWMEALS SQ Last administered on 09/21/19at 12:23; Start 09/15/19 at 08:00 Dextrose (Dextrose 50%-Water Syringe) 12.5 gm PRN Q15MIN PRN IV SEE COMMENTS; Start 09/14/19 at 23:00 Dextrose (Iv Dextrose 5%) 250 ml PRN Q15MIN PRN IV SEE COMMENTS; Start 09/14/19 at 23:00 Vancomycin HCl 1 gm/Sodium Chloride 250 ml @ 250 mls/hr Q24H IV Last administered on 09/15/19at 20:06; Start 09/15/19 at 20:00; Stop 09/16/19 at 20:29; Status DC Vancomycin HCl (Vancomycin Trough Level) 1 each 1X ONCE MC Last administered on 09/16/19at 19:30; Start 09/16/19 at 19:30; Stop 09/16/19 at 19:31; Status DC Aspirin (Ecotrin) 81 mg DAILY PO Last administered on 09/22/19 08:40; Start 09/15/19 at 12:00 Atorvastatin Calcium (Lipitor) 40 mg QHS PO Last administered on 09/21/19 22:25; Start 09/16/19 at 21:00 Levetiracetam (Keppra) 500 mg BID PO Last administered on 09/22/19 08:41; Start 09/15/19 at 12:00 Levothyroxine Sodium (Synthroid) 112 mcg DAILY PO Last administered on 09/22/19 08:41; Start 09/15/19 at 12:00 Sertraline HCl (Zoloft) 100 mg DAILY PO Last administered on 09/22/19 08:41; Start 09/15/19 at 12:00 Potassium Chloride (Klor-Con) 40 meq 1X ONCE PO Last administered on 09/15/19 18:42; Start 09/15/19 at 17:00; Stop 09/15/19 at 17:01; Status DC Ondansetron HCl (Zofran) 4 mg PRN Q6HRS PRN IVP NAUSEA/VOMITING Last administered on 09/20/19 10:58; Start 09/15/19 at 20:15 Morphine Sulfate (Morphine Sulfate) 2 mg PRN Q2HR PRN IV PAIN Last administered on 09/18/19 20:36; Start 09/15/19 at 20:15 Oxycodone/ Acetaminophen (Percocet 5/325) 1 tab PRN Q6HRS PRN PO PAIN Last administered on 09/22/19 08:50; Start 09/16/19 at 05:30 Lactobacillus Rhamnosus (Culturelle) 1 cap BID PO Last administered on 09/22/19 08:40; Start 09/16/19 at 21:00 Vancomycin HCl 1 gm/Sodium Chloride 250 ml @ 250 mls/hr Q12H IV Last administered on 09/18/19 10:49; Start 09/16/19 at 21:00; Stop 09/18/19 at 19:50; Status DC Vancomycin HCl (Vancomycin Trough Level) 1 each 1X ONCE MC Last administered on 09/18/19 08:30; Start 09/18/19 at 08:30; Stop 09/18/19 at 08:31; Status DC Albuterol Sulfate (Ventolin Neb Soln) 2.5 mg RTQID NEB Last administered on 09/20/19 11:41; Start 09/18/19 at 20:00 Albuterol Sulfate (Ventolin Neb Soln) 2.5 mg 1X ONCE NEB Last administered on 09/18/19at 18:11; Start 09/18/19 at 18:15; Stop 09/18/19 at 18:16; Status DC Vancomycin HCl 1 gm/Sodium Chloride 250 ml @ 250 mls/hr Q8H IV Last a dministered on 09/19/19at 04:21; Start 09/18/19 at 20:00; Stop 09/19/19 at 11:16; Status DC Atenolol (Tenormin) 50 mg HS PO Last administered on 09/20/19 23:40; Start 09/20/19 at 21:00 Isosorbide Mononitrate (Imdur) 30 mg DAILY PO Last administered on 09/22/19 08:40; Start 09/20/19 at 11:00 Metformin HCl (Glucophage Xr) 500 mg BIDWMEALS PO Last administered on 09/22/19 08:41; Start 09/20/19 at 17:00 Fish Oil (Fish Oil) 1,000 mg DAILY PO Last administered on 09/22/19 08:41; Start 09/20/19 at 11:00 Cyclobenzaprine HCl (Flexeril) 10 mg TID PO Last administered on 09/22/19 08:40; Start 09/20/19 at 14:00 Diphenhydramine HCl (Benadryl) 25 mg PRN Q6HRS PRN PO ITCHING; Start 09/20/19 at 11:00 Gabapentin (Neurontin) 600 mg TID PO Last administered on 09/22/19 08:40; Start 09/20/19 at 14:00 Cetirizine HCl (ZyrTEC) 10 mg DAILY PO Last administered on 09/22/19 08:40; Start 09/20/19 at 11:00 Losartan Potassium (Cozaar) 50 mg DAILY PO Last administered on 09/22/19 08:41; Start 09/20/19 at 11:30 Multivitamins (Thera M Plus) 1 tab DAILY PO Last administered on 09/22/19 08:41; Start 09/20/19 at 11:00 Ketotifen Fumarate (Zaditor) 1 drop BID OU Last administered on 09/22/19 08:42; Start 09/20/19 at 21:00 Famotidine (Pepcid) 20 mg QHS PO Last administered on 09/21/19 22:25; Start 09/20/19 at 21:00 Acetaminophen/ Aspirin/Caffeine (Excedrin Migraine) 1 tab PRN Q6HRS PRN PO MIGRAINE HEADACHE Last administered on 09/20/19at 10:58; Start 09/20/19 at 10:45 Hydrochlorothiazide (Microzide) 12.5 mg DAILY PO Last administered on 09/22/19 08:41; Start 09/20/19 at 11:30 Albuterol/ Ipratropium (Duoneb) 3 ml RTQID NEB Last administered on 09/22/19 08:12; Start 09/20/19 at 16:00 Furosemide (Lasix) 20 mg 1X ONCE IVP Last administered on 09/20/19at 18:18; Start 09/20/19 at 17:30; Stop 09/20/19 at 17:34; Status DC Potassium Chloride (Klor-Con) 20 meq DAILYWBKFT PO Last administered on 09/21/19at 09:25; Start 09/21/19 at 08:00; Stop 09/21/19 at 17:49; Status DC Potassium Chloride (Klor-Con) 40 meq 1X ONCE PO Last administered on 09/20/19at 18:18; Start 09/20/19 at 17:30; Stop 09/20/19 at 17:34; Status DC Potassium Chloride (Klor-Con) 40 meq DAILYWBKFT PO Last administered on 09/22/19at 08:39; Start 09/22/19 at 08:00 Potassium Chloride (Klor-Con) 40 meq 1X ONCE PO Last administered on 09/21/19at 19:15; Start 09/21/19 at 18:00; Stop 09/21/19 at 18:01; Status DC Active Scripts Active Reported Aspirin Ec (Aspirin) 81 Mg Tablet.dr 1 Tab PO DAILY Levothyroxine Sodium 112 Mcg Tablet 1 Tab PO DAILY Multi Vitamin Daily (Multivitamin) 1 Each Tablet 1 Tab PO DAILY 30 Days Fish Oil 1,000 Mg Softgel ([place]-3 Fatty Acids/Fish Oil) 1 Each Capsule 1 Cap PO DAILY 30 Days Ranitidine Hcl 300 Mg Tablet 1 Tab PO QHS [place]o (Olopatadine HCl) 2.5 Ml Drops 2.5 Ml OP DAILY Losartan-Hctz 50-12.5 Mg Tab (Losartan/Hydrochlorothiazide) 1 Each Tablet 1 Tab PO DAILY Levetiracetam 500 Mg Tablet 1 Tab PO BID Metformin Hcl Er (Metformin Hcl) 500 Mg Tab.er.24h 500 Mg PO BIDWMEALS Atenolol 50 Mg Tablet 1 Tab PO HS Diphenhydramine Hcl 25 Mg Tablet 25 Mg PO PRN PRN Loratadine 10 Mg Tab.rapdis 1 Tab PO DAILY 30 Days Baclofen 10 Mg Tablet 1 Tab PO BID Isosorbide Mononitrate Er (Isosorbide Mononitrate) 30 Mg Tab.er.24h 1 Tab PO DAILY Zoloft (Sertraline Hcl) 100 Mg Tablet 1 Tab PO DAILY Atorvastatin Calcium 40 Mg Tablet 1 Tab PO DAILY Gabapentin 600 Mg Tablet 600 Mg PO TID Vitals/I & O Vital Sign - Last 24 Hours 09/21/19 09/21/19 09/21/19 09/21/19 10:30 11:00 12:02 15:00 Temp 98.0 98.3 98.0 98.3 Pulse 78 69 Resp 19 16 16 B/P (MAP) 98/62 (74) 108/53 (71) Pulse Ox 93 95 96 O2 Delivery Room Air Nasal Cannula Nasal Cannula Nasal Cannula O2 Flow Rate 5.0 5.0 5.0 09/21/19 09/21/19 09/21/19 09/21/19 15:52 19:00 19:29 20:00 Temp 98.2 98.2 Pulse 70 Resp 18 20 B/P (MAP) 119/71 (87) Pulse Ox 90 92 O2 Delivery Nasal Cannula Nasal Cannula Nasal Cannula Nasal Cannula O2 Flow Rate 5.0 5.0 5.0 5.0 09/21/19 09/21/19 09/22/19 09/22/19 21:00 23:00 03:00 07:00 Temp 98.2 98.2 98.8 98.2 98.2 98.8 Pulse 70 71 61 63 Resp 18 18 16 B/P (MAP) 119/71 123/67 (85) 123/78 (93) 139/83 (101) Pulse Ox 92 91 93 O2 Delivery Nasal Cannula Nasal Cannula Nasal Cannula O2 Flow Rate 5.0 5.0 5.0 09/22/19 09/22/19 09/22/19 09/22/19 08:13 08:40 08:41 08:50 Pulse 63 63 Resp 20 B/P (MAP) 139/83 139/83 Pulse Ox 93 93 O2 Delivery Nasal Cannula Room Air O2 Flow Rate 5.0 Intake and Output 09/21/19 09/21/19 09/22/19 15:00 23:00 07:00 Intake Total 180 ml 0 ml 0 ml Balance 180 ml 0 ml 0 ml LAY BUSCH MD Sep 22, 2019 09:54
--- NOTE | 2019-09-22 10:31 | NUR ---
[facility] following. Discussed with RN. Pt discharging home today after a 6 minute walk. [facility] awaiting results of 6 minute walk to determine if pt needing o2 at DC. [facility] will continue to follow. RN notified. Addendum: 09/22/19 at 1315 by DEIDRE HIGHTOWER Pt needing 4L o2 continuous. [facility] faxed referral to [facility]. [facility] accepted. [facility] provided tank to pt for discharge home. Pt to contact [facility] when she gets home to have more tanks delivered. RN notified.
[2019-09-22 11:00] VITALS: BP 109/66
[2019-09-22 11:25] LABS: ALBUMIN 3.1 g/dL (3.4-5.0); ALBUMIN/GLOBULIN RATIO 0.8 (1.0-1.7); CALCIUM 8.4 mg/dL (8.5-10.1); GFR 67.8; POTASSIUM 3.9 mmol/L (3.5-5.1); TOTAL BILIRUBIN 0.2 mg/dL (0.2-1.0); TOTAL PROTEIN 7.2 g/dL (6.4-8.2)
[2019-09-22] MEDS: ALBUTEROL SULFATE 2.5 MG/3 ML NEBU. NEB SCH ×2 (11:27→15:44)
--- NOTE | 2019-09-22 13:37 | PDOC ---
PULMONARY PROGRESS NOTES Subjective PT FEELS LESS SOA Vitals Vital Signs Date Time Temp Pulse Resp B/P (MAP) Pulse Ox O2 Delivery O2 Flow Rate FiO2 09/22/19 11:28 92 Nasal Cannula 5.0 09/22/19 11:00 98.0 90 16 109/66 (80) 98.0 ROS: No Nausea, No Chest Pain, No Abdominal Pain, No Increase Cough General: Alert Lungs: Crackles Cardiovascular: S1, S2 Abdomen: Soft Neuro Exam: Alert Extremities: No Edema Skin: Warm Labs Laboratory Tests Test 09/20/19 16:54 09/20/19 20:03 09/21/19 04:50 09/21/19 07:46 Glucose (Fingerstick) 100 mg/dL (70-99) 143 mg/dL (70-99) 86 mg/dL (70-99) Sodium Level 145 mmol/L (136-145) Potassium Level 3.2 mmol/L (3.5-5.1) Chloride Level 103 mmol/L (98-107) Carbon Dioxide Level 34 mmol/L (21-32) Anion Gap 8 (6-14) Blood Urea Nitrogen 2 mg/dL (7-20) Creatinine 0.8 mg/dL (0.6-1.0) Estimated GFR (Cockcroft-Gault) 87.7 BUN/Creatinine Ratio 3 (6-20) Glucose Level 90 mg/dL (70-99) Calcium Level 8.4 mg/dL (8.5-10.1) Total Bilirubin 0.2 mg/dL (0.2-1.0) Aspartate Amino Transf (AST/SGOT) 45 U/L (15-37) Alanine Aminotransferase (ALT/SGPT) 85 U/L (14-59) Alkaline Phosphatase 65 U/L (46-116) Total Protein 7.2 g/dL (6.4-8.2) Albumin 2.9 g/dL (3.4-5.0) Albumin/Globulin Ratio 0.7 (1.0-1.7) Test 09/21/19 11:14 09/21/19 16:59 09/21/19 21:26 09/22/19 07:27 Glucose (Fingerstick) 162 mg/dL (70-99) 98 mg/dL (70-99) 138 mg/dL (70-99) 95 mg/dL (70-99) Test 09/22/19 10:30 09/22/19 11:36 Sodium Level 142 mmol/L (136-145) Potassium Level 3.9 mmol/L (3.5-5.1) Chloride Level 102 mmol/L (98-107) Carbon Dioxide Level 33 mmol/L (21-32) Anion Gap 7 (6-14) Blood Urea Nitrogen 2 mg/dL (7-20) Creatinine 1.0 mg/dL (0.6-1.0) Estimated GFR (Cockcroft-Gault) 67.8 BUN/Creatinine Ratio 2 (6-20) Glucose Level 149 mg/dL (70-99) Calcium Level 8.4 mg/dL (8.5-10.1) Total Bilirubin 0.2 mg/dL (0.2-1.0) Aspartate Amino Transf (AST/SGOT) 23 U/L (15-37) Alanine Aminotransferase (ALT/SGPT) 63 U/L (14-59) Alkaline Phosphatase 69 U/L (46-116) Total Protein 7.2 g/dL (6.4-8.2) Albumin 3.1 g/dL (3.4-5.0) Albumin/Globulin Ratio 0.8 (1.0-1.7) Glucose (Fingerstick) 119 mg/dL (70-99) Laboratory Tests Test 09/21/19 16:59 09/21/19 21:26 09/22/19 07:27 09/22/19 10:30 Glucose (Fingerstick) 98 mg/dL (70-99) 138 mg/dL (70-99) 95 mg/dL (70-99) Sodium Level 142 mmol/L (136-145) Potassium Level 3.9 mmol/L (3.5-5.1) Chloride Level 102 mmol/L (98-107) Carbon Dioxide Level 33 mmol/L (21-32) Anion Gap 7 (6-14) Blood Urea Nitrogen 2 mg/dL (7-20) Creatinine 1.0 mg/dL (0.6-1.0) Estimated GFR (Cockcroft-Gault) 67.8 BUN/Creatinine Ratio 2 (6-20) Glucose Level 149 mg/dL (70-99) Calcium Level 8.4 mg/dL (8.5-10.1) Total Bilirubin 0.2 mg/dL (0.2-1.0) Aspartate Amino Transf (AST/SGOT) 23 U/L (15-37) Alanine Aminotransferase (ALT/SGPT) 63 U/L (14-59) Alkaline Phosphatase 69 U/L (46-116) Total Protein 7.2 g/dL (6.4-8.2) Albumin 3.1 g/dL (3.4-5.0) Albumin/Globulin Ratio 0.8 (1.0-1.7) Test 09/22/19 11:36 Glucose (Fingerstick) 119 mg/dL (70-99) Medications Active Scripts Medications Dose Route/Sig Max Daily Dose Days Date Category Aspirin Ec (Aspirin) 81 Mg Tablet.dr 1 Tab PO DAILY 09/15/19 Reported Levothyroxine Sodium 112 Mcg Tablet 1 Tab PO DAILY 09/15/19 Reported Multi Vitamin Daily (Multivitamin) 1 Each Tablet 1 Tab PO DAILY 30 09/15/19 Reported Fish Oil 1,000 Mg Softgel ([place]-3 Fatty Acids/Fish Oil) 1 Each Capsule 1 Cap PO DAILY 30 09/15/19 Reported Ranitidine Hcl 300 Mg Tablet 1 Tab PO QHS 09/15/19 Reported [place]o (Olopatadine HCl) 2.5 Ml Drops 2.5 Ml OP DAILY 09/15/19 Reported Losartan-Hctz 50-12.5 Mg Tab (Losartan/Hydrochlorothiazide) 1 Each Tablet 1 Tab PO DAILY 09/15/19 Reported Levetiracetam 500 Mg Tablet 1 Tab PO BID 09/15/19 Reported Metformin Hcl Er (Metformin Hcl) 500 Mg Tab.er.24h 500 Mg PO BIDWMEALS 09/15/19 Reported Atenolol 50 Mg Tablet 1 Tab PO HS 09/15/19 Reported Diphenhydramine Hcl 25 Mg Tablet 25 Mg PO PRN PRN 09/15/19 Reported Loratadine 10 Mg Tab.rapdis 1 Tab PO DAILY 30 09/15/19 Reported Baclofen 10 Mg Tablet 1 Tab PO BID 09/15/19 Reported Isosorbide Mononitrate Er (Isosorbide Mononitrate) 30 Mg Tab.er.24h 1 Tab PO DAILY 09/15/19 Reported Zoloft (Sertraline Hcl) 100 Mg Tablet 1 Tab PO DAILY 09/15/19 Reported Atorvastatin Calcium 40 Mg Tablet 1 Tab PO DAILY 09/15/19 Reported Gabapentin 600 Mg Tablet 600 Mg PO TID 09/15/19 Reported Impression . IMPRESSION: 1. Abnormal x-ray compatible with fluid overload. The patient does not give a history of prior congestive heart failure. This could be related to the fluids that she has received since admission. 2. Possible aspiration pneumonia. 3. Escherichia coli urinary tract infection. 4. Toxic metabolic encephalopathy. 5. Hypoxemia secondary to #1 and #2. 6. History of brain tumor. 7. Other comorbidities as indicated above. <Conclusion> The left ventricular systolic function is normal and the ejection fraction is within normal range. The Ejection Fraction is 60-65%. There is normal LV segmental wall motion. There is mild to moderate left pleural effusion visualized. Plan . PT TO DC TODAY FOLLOW UP WITH IN OFFICE echo report noted normal EF SIMEON SMITH MD Sep 22, 2019 13:37
--- NOTE | 2019-09-22 13:41 | SNU/HH DC ---
DISCHARGE WITH HOME HEALTH DISCHARGE INFORMATION: Discharge Date: Sep 22, 2019 Final Diagnosis: Problems Medical Problems: (1) Altered level of consciousness Status: Acute (2) Fever Status: Acute (3) SIRS (systemic inflammatory response syndrome) Status: Acute Condition on Discharge: Stable CODE STATUS: Code Status: Full HOME HEALTH: Face to Face: I certify this patient is under my care and that I had a face to face encounter that meets the physician face to face encounter requirements with this patient on 09/22/19 RN For Eval/Treatment: Yes Pt Meets Homebound Status: Unsteady balance w/ amb,, Extreme weakness w/ amb. POST DISCHARGE ORDERS: Activity Instructions for Disc: No restrictions, Resume previous activity, Activity as tolerated Weight Bearing Status after Di: No restrictions DIET AFTER DISCHARGE: Cardiac FOLLOW-UP: Follow up with: primary care 1-2 weeks Follow Up With: jg Rodgers 2 weeks TREATMENT/EQUIPMENT ORDERS: Adaptive Equipment Issued: Front wheeled walker Discharge Respiratory Equipmen: Oxygen (3 liters) CERTIFICATION STATEMENT: Certification Statement: Certification Statement: Based on the above finding, I certify that this patient is confined to the home and needs intermittent retirement care, physical therapy and/or speech therapy, or continues to need occupational therapy.~ This patient is under my care, and I have initiated the establishment of the plan of care.~ This patient will be followed by myself or a community physician who will periodically review the plan of care. Home Meds Reported Medications Aspirin (ASPIRIN EC) 81 Mg Tablet., 1 TAB PO DAILY for UKN, #30 TAB 3 Refills 09/15/19 Levothyroxine Sodium (LEVOTHYROXINE SODIUM) 112 Mcg Tablet, 1 TAB PO DAILY for Thyroid disorder, #30 TAB 5 Refills 09/15/19 Multivitamin (MULTI VITAMIN DAILY) 1 Each Tablet, 1 TAB PO DAILY for suppliment for 30 Days, #30 TAB 0 Refills 09/15/19 [place]-3 Fatty Acids/Fish Oil (FISH OIL 1,000 MG SOFTGEL) 1 Each Capsule, 1 CAP PO DAILY for UKN for 30 Days, #30 CAP 0 Refills 09/15/19 Ranitidine Hcl (RANITIDINE HCL) 300 Mg Tablet, 1 TAB PO QHS for GERD, #90 TAB 3 Refills 09/15/19 Olopatadine HCl (Pazeo) 2.5 Ml Drops, 2.5 ML OP DAILY for UKN, DROP 09/15/19 Losartan/Hydrochlorothiazide (LOSARTAN-HCTZ 50-12.5 MG TAB) 1 Each Tablet, 1 TAB PO DAILY for HTN, #30 TAB 5 Refills 09/15/19 Levetiracetam (LEVETIRACETAM) 500 Mg Tablet, 1 TAB PO BID for seizures, #180 TAB 3 Refills 09/15/19 Metformin Hcl (METFORMIN HCL ER) 500 Mg Tab.er.24h, 500 MG PO BIDWMEALS for DM, TAB 09/15/19 Atenolol (ATENOLOL) 50 Mg Tablet, 1 TAB PO HS for HTN, #30 TAB 5 Refills 09/15/19 Diphenhydramine Hcl (DIPHENHYDRAMINE HCL) 25 Mg Tablet, 25 MG PO PRN PRN for ALLERGIES, TAB 09/15/19 Loratadine (LORATADINE) 10 Mg Tab.rapdis, 1 TAB PO DAILY for allergy symptoms for 30 Days, #30 TAB 0 Refills 09/15/19 Baclofen (BACLOFEN) 10 Mg Tablet, 1 TAB PO BID for UKN, #90 TAB 2 Refills 09/15/19 Isosorbide Mononitrate (ISOSORBIDE MONONITRATE ER) 30 Mg Tab.er.24h, 1 TAB PO DAILY for HTN, #30 TAB 5 Refills 09/15/19 Sertraline Hcl (ZOLOFT) 100 Mg Tablet, 1 TAB PO DAILY for Depression, #30 TAB 5 Refills 09/15/19 Atorvastatin Calcium (ATORVASTATIN CALCIUM) 40 Mg Tablet, 1 TAB PO DAILY for HLD, #30 TAB 5 Refills 09/15/19 Gabapentin (GABAPENTIN) 600 Mg Tablet, 600 MG PO TID for NEUROGENIC PAIN, TAB 09/15/19 Discontinued Reported Medications Levothyroxine Sodium (LEVOTHYROXINE SODIUM) 125 Mcg Tablet, 1 TAB PO DAILY for Thyroid Def, #30 TAB 5 Refills 09/15/19 CELINA STRANGE MD Sep 22, 2019 13:41
--- NOTE | 2019-09-22 14:45 | NUR ---
PATIENT HAS DISCHARGE ORDERS, FAILED 6 MIN. WALK AND WILL NEED OXYGEN AT 4 LITERS AT ALL TIMES, SOCIAL WORK HAS PROVIDED PATIENT WITH OXYGEN TANK FOR DISCHARGE.
[2019-09-22 15:00] VITALS: BP 101/63
--- NOTE | 2019-09-22 17:35 | PDOC3 ---
Discharge Summary Visit Information Date of Admission: Sep 14, 2019 Date of Discharge: Sep 22, 2019 Final Diagnosis chronic encephalopathy, has hx of TBI acute hypoxic respiratory faiulre, DC on 3-4 liters, NC weakness and debility, acquired Sepsis, POA UTI URINE CULTURE RES 1 Preliminary Escherichia coli Hx of Brain Tumor on Seizure ppx HTN DM Hypothyroidism GERD Problems Medical Problems: (1) Altered level of consciousness Status: Acute (2) Fever Status: Acute (3) SIRS (systemic inflammatory response syndrome) Status: Acute Brief Hospital Course Allergies Allergies Coded Allergies Type Severity Reaction Last Updated Verified No Known Drug Allergies 09/14/19 No Vital Signs Vital Signs Date Time Temp Pulse Resp B/P (MAP) Pulse Ox O2 Delivery O2 Flow Rate FiO2 09/22/19 15:44 Nasal Cannula 5.0 09/22/19 15:00 97.9 83 16 101/63 (76) 96 97.9 Lab Results Laboratory Tests Test 09/20/19 20:03 09/21/19 04:50 09/21/19 07:46 09/21/19 11:14 Glucose (Fingerstick) 143 mg/dL (70-99) 86 mg/dL (70-99) 162 mg/dL (70-99) Sodium Level 145 mmol/L (136-145) Potassium Level 3.2 mmol/L (3.5-5.1) Chloride Level 103 mmol/L (98-107) Carbon Dioxide Level 34 mmol/L (21-32) Anion Gap 8 (6-14) Blood Urea Nitrogen 2 mg/dL (7-20) Creatinine 0.8 mg/dL (0.6-1.0) Estimated GFR (Cockcroft-Gault) 87.7 BUN/Creatinine Ratio 3 (6-20) Glucose Level 90 mg/dL (70-99) Calcium Level 8.4 mg/dL (8.5-10.1) Total Bilirubin 0.2 mg/dL (0.2-1.0) Aspartate Amino Transf (AST/SGOT) 45 U/L (15-37) Alanine Aminotransferase (ALT/SGPT) 85 U/L (14-59) Alkaline Phosphatase 65 U/L (46-116) Total Protein 7.2 g/dL (6.4-8.2) Albumin 2.9 g/dL (3.4-5.0) Albumin/Globulin Ratio 0.7 (1.0-1.7) Test 09/21/19 16:59 09/21/19 21:26 09/22/19 07:27 09/22/19 10:30 Glucose (Fingerstick) 98 mg/dL (70-99) 138 mg/dL (70-99) 95 mg/dL (70-99) Sodium Level 142 mmol/L (136-145) Potassium Level 3.9 mmol/L (3.5-5.1) Chloride Level 102 mmol/L (98-107) Carbon Dioxide Level 33 mmol/L (21-32) Anion Gap 7 (6-14) Blood Urea Nitrogen 2 mg/dL (7-20) Creatinine 1.0 mg/dL (0.6-1.0) Estimated GFR (Cockcroft-Gault) 67.8 BUN/Creatinine Ratio 2 (6-20) Glucose Level 149 mg/dL (70-99) Calcium Level 8.4 mg/dL (8.5-10.1) Total Bilirubin 0.2 mg/dL (0.2-1.0) Aspartate Amino Transf (AST/SGOT) 23 U/L (15-37) Alanine Aminotransferase (ALT/SGPT) 63 U/L (14-59) Alkaline Phosphatase 69 U/L (46-116) Total Protein 7.2 g/dL (6.4-8.2) Albumin 3.1 g/dL (3.4-5.0) Albumin/Globulin Ratio 0.8 (1.0-1.7) Test 09/22/19 11:36 Glucose (Fingerstick) 119 mg/dL (70-99) Laboratory Tests Test 09/21/19 21:26 09/22/19 07:27 09/22/19 10:30 09/22/19 11:36 Glucose (Fingerstick) 138 mg/dL (70-99) 95 mg/dL (70-99) 119 mg/dL (70-99) Sodium Level 142 mmol/L (136-145) Potassium Level 3.9 mmol/L (3.5-5.1) Chloride Level 102 mmol/L (98-107) Carbon Dioxide Level 33 mmol/L (21-32) Anion Gap 7 (6-14) Blood Urea Nitrogen 2 mg/dL (7-20) Creatinine 1.0 mg/dL (0.6-1.0) Estimated GFR (Cockcroft-Gault) 67.8 BUN/Creatinine Ratio 2 (6-20) Glucose Level 149 mg/dL (70-99) Calcium Level 8.4 mg/dL (8.5-10.1) Total Bilirubin 0.2 mg/dL (0.2-1.0) Aspartate Amino Transf (AST/SGOT) 23 U/L (15-37) Alanine Aminotransferase (ALT/SGPT) 63 U/L (14-59) Alkaline Phosphatase 69 U/L (46-116) Total Protein 7.2 g/dL (6.4-8.2) Albumin 3.1 g/dL (3.4-5.0) Albumin/Globulin Ratio 0.8 (1.0-1.7) Brief Hospital Course Ms. Suarez 64 year old BF with hx of HTN, HLD, GERD, DM, prior brain tumor sx on keppra for seizur ppx who is from [facility] visiting her daughter and baby here in [place]. patient seen last in her normal state around 2 pm yesterday and found by her daughter this AM confused since this AM per son who was at the bedside providing as much history as he can. he also notes that patient was in bed most of the day yesterday. noted temp of 102.2 upon arrival. patient appears very lethargic and answers questions minimally. no reported cough, dysuria, chest pain, sob, nausea vomiting diarrhea. no reported illicit drug use. has had adequate PO intake per son. patient usually more alert and awake and per son, this is not her normal self. no prior hx of stroke. no reported seizure activity per family. takes all medications as prescribed. her hypoxia worsened after a few days, pulm consult, edema from infection, steadily better, will need time she lives out of state and is here visiting, but will f/u with Dr. Yanez Discharge Information Condition at Discharge: Improved Follow Up: Weeks Disposition/Orders: D/C to Home w/ HH Scheduled Aspirin (Aspirin Ec) 81 Mg Tablet., 1 TAB PO DAILY for UKN, #30 Ref 3 (Reported) Entered as Reported by: RUPA FRANCO on 09/15/19 0820 Last Taken: Unknown Dose on Unknown Date & Time Last Action: Continued on 2/71124 by HOA DE OLIVEIRA MD Atenolol (Atenolol) 50 Mg Tablet, 1 TAB PO HS for HTN, #30 Ref 5 (Reported) Entered as Reported by: RUPA FRANCO on 09/15/19812 Last Taken: Unknown Dose on Unknown Date & Time Last Action: Continued on 09/20/191032 by ELLI IQBAL RN Atorvastatin Calcium (Atorvastatin Calcium) 40 Mg Tablet, 1 TAB PO DAILY for HLD, #30 Ref 5 (Reported) Entered as Reported by: RUPA FRANCO on 09/15/19812 Last Taken: Unknown Dose on Unknown Date & Time Last Action: Continued on 09/15/191124 by HOA DE OLIVEIRA MD Baclofen (Baclofen) 10 Mg Tablet, 1 TAB PO BID for UKN, #90 Ref 2 (Reported) Entered as Reported by: RUPA FRANCO on 09/15/19812 Last Taken: Unknown Dose on Unknown Date & Time Last Action: Converted on 09/20/191032 by ELLI IQBAL RN Gabapentin (Gabapentin) 600 Mg Tablet, 600 MG PO TID for NEUROGENIC PAIN, (Reported) Entered as Reported by: RUPA FRANCO on 09/15/19812 Last Taken: Unknown Dose on Unknown Date & Time Last Action: Converted on 09/20/191032 by ELLI IQBAL RN Isosorbide Mononitrate (Isosorbide Mononitrate Er) 30 Mg Tab.er.24h, 1 TAB PO DAILY for HTN, #30 Ref 5 (Reported) Entered as Reported by: RUPA FRANCO on 09/15/19812 Last Taken: Unknown Dose on Unknown Date & Time Last Action: Continued on 09/20/191032 by ELLI IQBAL, RN Levetiracetam (Levetiracetam) 500 Mg Tablet, 1 TAB PO BID for seizures, #180 Ref 3 (Reported) Entered as Reported by: RUPA FRANCO on 09/15/19812 Last Taken: Unknown Dose on Unknown Date & Time Last Action: Continued on 09/15/191124 by HOA DE OLIVEIRA MD Levothyroxine Sodium (Levothyroxine Sodium) 112 Mcg Tablet, 1 TAB PO DAILY for Thyroid disorder, #30 Ref 5 (Reported) Entered as Reported by: RUPA FRANCO on 09/15/19819 Last Taken: Unknown Dose on Unknown Date & Time Last Action: Continued on 09/15/191124 by HOA DE OLIVEIRA MD Loratadine (Loratadine) 10 Mg Tab.rapdis, 1 TAB PO DAILY for allergy symptoms for 30 Days, #30 Ref 0 (Reported) Entered as Reported by: RUPA FRANCO on 09/15/19812 Last Taken: Unknown Dose on Unknown Date & Time Last Action: Converted on 09/20/191032 by ELLI IQBAL RN Losartan/Hydrochlorothiazide (Losartan-Hctz 50-12.5 Mg Tab) 1 Each Tablet, 1 TAB PO DAILY for HTN, #30 Ref 5 (Reported) Entered as Reported by: RUPA FRANCO on 09/15/19812 Last Taken: Unknown Dose on Unknown Date & Time Last Action: Converted on 09/20/191032 by ELLI IQBAL RN Metformin Hcl (Metformin Hcl Er) 500 Mg Tab.er.24h, 500 MG PO BIDWMEALS for DM, (Reported) Entered as Reported by: RUPA FRANCO on 09/15/19812 Last Taken: Unknown Dose on Unknown Date & Time Last Action: Continued on 09/20/191032 by ELLI IQBAL RN Multivitamin (Multi Vitamin Daily) 1 Each Tablet, 1 TAB PO DAILY for suppliment for 30 Days, #30 Ref 0 (Reported) Entered as Reported by: RUPA FRANCO on 09/15/19812 Last Taken: Unknown Dose on Unknown Date & Time Last Action: Converted on 09/20/191032 by ELLI IQBAL RN Olopatadine HCl (Pazeo) 2.5 Ml Drops, 2.5 ML OP DAILY for UKN, (Reported) Entered as Reported by: RUPA FRANCO on 09/15/19812 Last Taken: Unknown Dose on Unknown Date & Time Last Action: Converted on 09/20/191032 by ELLI IQBAL RN Pfeifer-3 Fatty Acids/Fish Oil (Fish Oil 1,000 Mg Softgel) 1 Each Capsule, 1 CAP PO DAILY for UKN for 30 Days, #30 Ref 0 (Reported) Entered as Reported by: RUPA FRANCO on 09/15/19812 Last Taken: Unknown Dose on Unknown Date & Time Last Action: Continued on 09/20/191032 by ELLI IQBAL RN Ranitidine Hcl (Ranitidine Hcl) 300 Mg Tablet, 1 TAB PO QHS for GERD, #90 Ref 3 (Reported) Entered as Reported by: RUPA FRANCO on 09/15/19812 Last Taken: Unknown Dose on Unknown Date & Time Last Action: Converted on 09/20/191032 by ELLI IQBAL RN Sertraline Hcl (Zoloft) 100 Mg Tablet, 1 TAB PO DAILY for Depression, #30 Ref 5 (Reported) Entered as Reported by: RUPA FRANCO on 09/15/19812 Last Taken: Unknown Dose on Unknown Date & Time Last Action: Converted on 09/15/191124 by HOA DE OLIVEIRA MD Scheduled PRN Diphenhydramine Hcl (Diphenhydramine Hcl) 25 Mg Tablet, 25 MG PO PRN PRN for ALLERGIES, (Reported) Entered as Reported by: RUPA FRANCO on 09/15/19812 Last Taken: Unknown Dose on Unknown Date & Time Last Action: Converted on 09/20/191032 by ELLI IQBAL RN Discontinued Medications Levothyroxine Sodium (Levothyroxine Sodium) 125 Mcg Tablet, 1 TAB PO DAILY for Thyroid Def, #30 Ref 5 (Reported) Entered as Reported by: RUPA FRANCO on 09/15/19812 Last Taken: Unknown Dose on Unknown Date & Time Last Action: Discontinued on 09/15/19819 by RUPA FRANCO Patient Instructions Patient Instructions > 30 min face to face CELINA STRANGE MD Sep 22, 2019 17:35
== END 2019-09-22 17:45 | disposition home health service (06) | DRG 871 ==
LOC: ER 16:09 → 6 SOUTH 19:32 → 5 SOUTH 09-17 17:57
PROVIDERS: ADMIT Internal Medicine; ATTEND Internal Medicine
DX: A41.9 Sepsis, unspecified organism (principal); G92 Toxic encephalopathy; G04.90 Encephalitis and encephalomyelitis, unspecified; J96.91 Respiratory failure, unspecified with hypoxia; N39.0 Urinary tract infection, site not specified; B96.20 Unspecified Escherichia coli [E. coli] as the cause of diseases classified elsewhere; E11.9 Type 2 diabetes mellitus without complications; E78.00 Pure hypercholesterolemia, unspecified; E78.5 Hyperlipidemia, unspecified; E87.70 Fluid overload, unspecified; E89.0 Postprocedural hypothyroidism; I10 Essential (primary) hypertension; K21.9 Gastro-esophageal reflux disease without esophagitis; R65.20 Severe sepsis without septic shock; Z87.820 Personal history of traumatic brain injury; Z87.891 Personal history of nicotine dependence
CPT/HCPCS: 36415; 70450; 70496; 70498; 71045; 71046; 80053; 80202; 81001; 82140; 82248; 82550; 82565; 82607; 82962; 83605; 83690; 83735; 83880; 84443; 84484; 85007; 85025; 85610; 85651; 85730; 86140; 86592; 87040; 87086; 87186; 87493; 87804; 93005; 93306; 94618; 94640; 94760; 96361; 96365; 96367; 96375; J0696; J1815; J1940; J2270; J2405; J2543; J3370; J7030; J7040; J7050; J7613; J7620; Q9967; 92610; 97110; 97116; 97530; 99291-25; G0378